=== PATIENT | male | born 1935 | race Caucasian/White ===

== ENCOUNTER 2016-11-14 09:08 | Outpatient (RCR) | payer MEDICARE, OTHER ==
[2016-10-10 10:58] LABS: BASOPHILS # (AUTO) 0.1 10^3/uL (0.0-0.1); BASOPHILS % (AUTO) 0 % (0-10); EOSINOPHILS % (AUTO) 0 % (0-10); LYMPHOCYTES % (AUTO) 94 % (12-44); MEAN CORPUSCULAR HEMOGLOBIN 35 PG (25-34); MEAN CORPUSCULAR HGB CONC 34 G/DL (32-36); MEAN CORPUSCULAR VOLUME 104 FL (80-99); MEAN PLATELET VOLUME 9.2 FL (7.4-10.4); MONOCYTES # (AUTO) 0.7 X 10^3 (0.0-1.0); MONOCYTES % (AUTO) 2 % (0-12); NEUTROPHILS # (AUTO) 1.4 X 10^3 (1.8-7.8); NEUTROPHILS % (AUTO) 4 % (42-75); PLATELET COUNT 114 10^3/uL (130-400); RED BLOOD COUNT 3.08 10^6/uL (4.35-5.85); RED CELL DISTRIBUTION WIDTH 16.9 % (10.0-14.5); WHITE BLOOD COUNT 38.2 10^3/uL (4.3-11.0)
[2016-10-10 11:59] LABS: ALANINE AMINOTRANSFERASE 15 U/L (0-55); ALBUMIN 4.3 G/DL (3.2-4.5); ANION GAP 7 MMOL/L (5-14); ASPARTATE AMINO TRANSFERASE 23 U/L (5-34); BILIRUBIN,TOTAL 0.5 MG/DL (0.1-1.0); BLOOD UREA NITROGEN 13 MG/DL (7-18); BUN/CREATININE RATIO 15; CALCIUM 9.2 MG/DL (8.5-10.1); CARBON DIOXIDE 24 MMOL/L (21-32); CHLORIDE 109 MMOL/L (98-107); CREATININE SERUM 0.84 MG/DL (0.60-1.30); GFR ESTIMATED > 60; GLUCOSE 123 MG/DL (70-105); LACTATE DEHYDROGENASE 252 U/L (125-220); POTASSIUM 4.8 MMOL/L (3.6-5.0); SODIUM 140 MMOL/L (135-145); TOTAL PROTEIN 7.1 G/DL (6.4-8.2)
[~2016-11-14 09:08] MED LIST: ASP81TEC PO; CARV25TA PO; E400C PO; ENAL10TA PO; FINA5TAB6 PO; GLYB2.5T4 PO; HYDR-3583 PO; OMEG-12 PO; SIMV80TA3 PO; SULF1TAB38 PO; [UNRECOGNIZED DRUG - CODE] PO
[2016-11-14 09:55] LABS: BASOPHILS # (AUTO) 0.1 10^3/uL (0.0-0.1); BASOPHILS % (AUTO) 0 % (0-10); EOSINOPHILS # (AUTO) 0.1 10^3/uL (0.0-0.3); EOSINOPHILS % (AUTO) 0 % (0-10); LYMPHOCYTES # (AUTO) 42.4 X 10^3 (1.0-4.0); LYMPHOCYTES % (AUTO) 92 % (12-44); MEAN CORPUSCULAR HEMOGLOBIN 35 PG (25-34); MEAN CORPUSCULAR HGB CONC 34 G/DL (32-36); MEAN CORPUSCULAR VOLUME 105 FL (80-99); MEAN PLATELET VOLUME 9.9 FL (7.4-10.4); MONOCYTES # (AUTO) 1.3 X 10^3 (0.0-1.0); MONOCYTES % (AUTO) 3 % (0-12); NEUTROPHILS # (AUTO) 2.3 X 10^3 (1.8-7.8); NEUTROPHILS % (AUTO) 5 % (42-75); PLATELET COUNT 199 10^3/uL (130-400); RED BLOOD COUNT 3.22 10^6/uL (4.35-5.85)
[2016-11-14 10:18] LABS: ALANINE AMINOTRANSFERASE 42 U/L (0-55); ALBUMIN 4.2 G/DL (3.2-4.5); ANION GAP 10 MMOL/L (5-14); ASPARTATE AMINO TRANSFERASE 34 U/L (5-34); BILIRUBIN,TOTAL 0.5 MG/DL (0.1-1.0); BLOOD UREA NITROGEN 17 MG/DL (7-18); BUN/CREATININE RATIO 16; CALCIUM 9.4 MG/DL (8.5-10.1); CARBON DIOXIDE 25 MMOL/L (21-32); CHLORIDE 106 MMOL/L (98-107); CREATININE SERUM 1.06 MG/DL (0.60-1.30); GFR ESTIMATED > 60; GLUCOSE 235 MG/DL (70-105); LACTATE DEHYDROGENASE 290 U/L (125-220); POTASSIUM 4.7 MMOL/L (3.6-5.0); SODIUM 141 MMOL/L (135-145); TOTAL PROTEIN 7.3 G/DL (6.4-8.2)
== END 2017-01-08 | disposition home or self-care (01) ==
LOC: ONC 09:08
PROVIDERS: ATTEND Internal Medicine Hematology & Oncology
DX: C91.10 Chronic lymphocytic leukemia of B-cell type not having achieved remission (principal); C32.1 Malignant neoplasm of supraglottis; N18.3 Chronic kidney disease, stage 3 (moderate); Z92.3 Personal history of irradiation; Z79.82 Long term (current) use of aspirin
CPT/HCPCS: 36415; 80053; 83615; 85025; 99213

== ENCOUNTER 2017-03-18 14:38 | Outpatient (RCR) | payer MEDICARE, OTHER ==
--- OUTSIDE RECORDS SUMMARY | 2017-01-16 10:45 | XMS REPORT | Continuity of Care Document ---
Author Author [facility] Organization [facility] Address Unknown Phone Unavailable Allergies Active Description Code Type Severity Reaction Onset Reported/Identified Relationship to Patient Clinical Status Yes No Known Drug Allergies [id number] Drug Allergy Unknown N/ A 03/28/2011 Medications Problems Date Dx Coded Attending Type Code Diagnosis Diagnosed By 10/23/1452 LIZ LAVES Ot C32.1 MALIGNANT NEOPLASM OF SUPRAGLOTTIS 10/23/1452 LIZ ALVES Ot C91.10 CHRONIC LYMPHOCYTIC LEUK OF B-CELL TYPE 10/23/1452 LIZ ALVES Ot N18.3 CHRONIC KIDNEY DISEASE, STAGE 3 (MODERAT 10/23/1452 LIZ ALVES Ot Z79.82 PETAL SHAPER HAND (CURRENT) USE OF ASPIRIN 10/23/1452 LIZ ALVES Ot Z92.3 PERSONAL HISTORY OF IRRADIATION 10/06/2014 CARL MALHOTRA DRESSED POULTRY GRADER Ot 161.1 10/06/2014 CARL MALHOTRA DRESSED POULTRY GRADER Ot 204.10 10/06/2014 CARL MALHOTRA DRESSED POULTRY GRADER Ot 585.3 10/06/2014 CARL MALHOTRA DRESSED POULTRY GRADER Ot V15.3 10/06/2014 CARL MALHOTRA DRESSED POULTRY GRADER Ot V58.66 10/06/2014 CARL MALHOTRA DRESSED POULTRY GRADER Ot V58.69 10/18/2014 CARL MALHOTRA DRESSED POULTRY GRADER Ot 161.1 10/18/2014 CARL MALHOTRA DRESSED POULTRY GRADER Ot 204.10 10/18/2014 CARL MALHOTRA DRESSED POULTRY GRADER Ot 585.3 10/18/2014 CARL MALHOTRA DRESSED POULTRY GRADER Ot V15.3 10/18/2014 CARL MALHOTRA DRESSED POULTRY GRADER Ot V58.66 10/18/2014 CARL MALHOTRA DRESSED POULTRY GRADER Ot V58.69 12/06/2014 LIZ ALVES Ot 161.1 12/06/2014 LONG, BOBAN N Ot 204.10 12/06/2014 LONG, BOBAN N Ot 585.3 12/06/2014 LONG, BOBAN N Ot V15.3 12/06/2014 LONG, BOBAN N Ot V58.66 12/06/2014 LONG, BOBAN N Ot V58.69 01/09/2015 LONG, BOBAN N Ot 161.1 01/09/2015 LONG, BOBAN N Ot 204.10 01/09/2015 LONG, BOBAN N Ot 585.3 01/09/2015 LONG, BOBAN N Ot V15.3 01/09/2015 LONG, BOBAN N Ot V58.66 01/09/2015 LONG, BOBAN N Ot V58.69 01/16/2015 LONG, BOBAN N Ot 161.1 01/16/2015 LONG, BOBAN N Ot 204.10 01/16/2015 LONG, BOBAN N Ot 585.3 01/16/2015 LONG, BOBAN N Ot V15.3 01/16/2015 LONG, BOBAN N Ot V58.66 01/16/2015 LONG, BOBAN N Ot V58.69 01/17/2015 LONG, BOBAN N Ot 161.1 01/17/2015 LONG, BOBAN N Ot 204.10 01/17/2015 LONG, BOBAN N Ot 585.3 01/17/2015 LONG, BOBAN N Ot V15.3 01/17/2015 LONG, BOBAN N Ot V58.66 01/17/2015 LONG, BOBAN N Ot V58.69 02/16/2015 LONG, BOBAN N Ot 161.1 02/16/2015 LONG, BOBAN N Ot 204.10 02/16/2015 LONG, BOBAN N Ot 585.3 02/16/2015 LONG, BOBAN N Ot V15.3 02/16/2015 LONG, BOBAN N Ot V58.66 02/16/2015 LONG, BOBAN N Ot V58.69 04/16/2015 LONG, BOBAN N Ot 161.1 04/16/2015 LONG, BOBAN N Ot 204.10 04/16/2015 LONG, BOBAN N Ot 585.3 04/16/2015 LONG, BOBAN N Ot V15.3 04/16/2015 LONG, BOBAN N Ot V58.66 04/16/2015 LONG, BOBAN N Ot V58.69 04/28/2015 LONG, BOBAN N Ot 161.1 04/28/2015 LONG, BOBAN N Ot 204.10 04/28/2015 LONG, BOBAN N Ot 585.3 04/28/2015 LONG, BOBAN N Ot V15.3 04/28/2015 LONG, BOBAN N Ot V58.66 04/28/2015 LONG, BOBAN N Ot V58.69 05/08/2015 LONG, BOBAN N Ot 161.1 05/08/2015 LONG, BOBAN N Ot 204.10 05/08/2015 LONG, BOBAN N Ot 585.3 05/08/2015 LONG, BOBAN N Ot V15.3 05/08/2015 LONG, BOBAN N Ot V58.66 05/08/2015 LONG, BOBAN N Ot V58.69 05/09/2015 LONG, BOBAN N Ot 161.1 05/09/2015 LONG, BOBAN N Ot 204.10 05/09/2015 LONG, BOBAN N Ot 585.3 05/09/2015 LONG, BOBAN N Ot V15.3 05/09/2015 LONG, BOBAN N Ot V58.66 05/09/2015 LONG, BOBAN N Ot V58.69 06/15/2015 LONG, BOBAN N Ot 161.1 06/15/2015 LONG, BOBAN N Ot 204.10 06/15/2015 LONG, BOBAN N Ot 585.3 06/15/2015 LONG, BOBAN N Ot V15.3 06/15/2015 LONG, BOBAN N Ot V58.66 06/15/2015 LONG, BOBAN N Ot V58.69 07/10/2015 LONG, BOBAN N Ot 161.1 07/10/2015 LONG, BOBAN N Ot 204.10 07/10/2015 LONG, BOBAN N Ot 585.3 07/10/2015 LONG, BOBAN N Ot V15.3 07/10/2015 LONG, BOBAN N Ot V58.66 07/10/2015 LONG, BOBAN N Ot V58.69 08/06/2015 LONGLIZ RODRÍGUEZ N Ot 161.1 08/06/2015 LONG, DAVONTEAN N Ot 204.10 08/06/2015 LONGLIZ RODRÍGUEZ N Ot 585.3 08/06/2015 LONGLIZ RODRÍGUEZ N Ot V15.3 08/06/2015 LONGLIZ RODRÍGUEZ N Ot V58.66 08/06/2015 LONGLIZ RODRÍGUEZ N Ot V58.69 09/18/2015 MALHOTRACARL Lofton S DRESSED POULTRY GRADER Ot 161.1 09/18/2015 MARYA CARL S DRESSED POULTRY GRADER Ot 204.10 09/18/2015 MARYA CARL S DRESSED POULTRY GRADER Ot 287.5 09/18/2015 MARYA CARL S DRESSED POULTRY GRADER Ot 585.3 09/18/2015 MARYA CARL S DRESSED POULTRY GRADER Ot V15.3 09/18/2015 MARYA CARL S DRESSED POULTRY GRADER Ot V58.66 09/18/2015 MARYA CARL S DRESSED POULTRY GRADER Ot V58.69 10/04/2015 MARYA CARL S DRESSED POULTRY GRADER Ot 161.1 10/04/2015 MARYA CALR S DRESSED POULTRY GRADER Ot 204.10 10/04/2015 MALHOTRA CARL S DRESSED POULTRY GRADER Ot 287.5 10/04/2015 MARYA CARL S DRESSED POULTRY GRADER Ot 585.3 10/04/2015 MARYA CARL S DRESSED POULTRY GRADER Ot V15.3 10/04/2015 MARYA CARL S DRESSED POULTRY GRADER Ot V58.66 10/04/2015 MARYA CARL S DRESSED POULTRY GRADER Ot V58.69 11/10/2015 LONGLIZ RODRÍGUEZ N Ot 161.1 11/10/2015 LONGLIZ RODRÍGUEZ N Ot 204.10 11/10/2015 LONGLIZ RODRÍGUEZ N Ot 585.3 11/10/2015 LONGDAVONTE RODRÍGUEZAN N Ot C32.1 11/10/2015 LONGLIZ RODRÍGUEZ N Ot C91.10 11/10/2015 LONGLIZ RODRÍGUEZ N Ot N18.3 11/10/2015 LONGLIZ RODRÍGUEZ N Ot V15.3 11/10/2015 LONGLIZ RODRÍGUEZ N Ot V58.66 11/10/2015 LONGLIZ RODRÍGUEZ N Ot V58.69 11/10/2015 LONG, BOBAN N Ot Z79.82 11/10/2015 LONG, BOBAN N Ot Z92.3 11/29/2015 LONG, BOBAN N Ot C32.1 11/29/2015 LONG, BOBAN N Ot C91.10 11/29/2015 LONG, BOBAN N Ot N18.3 11/29/2015 LONG, BOBAN N Ot Z79.82 11/29/2015 LONG, BOBAN N Ot Z92.3 12/05/2015 MALHOTRA, HILAH S DRESSED POULTRY GRADER Ot C32.1 12/05/2015 MALHOTRA, HILAH S DRESSED POULTRY GRADER Ot C91.10 12/05/2015 MALHOTRA, HILAH S DRESSED POULTRY GRADER Ot N18.3 12/05/2015 MALHOTRA, HILAH S DRESSED POULTRY GRADER Ot Z79.82 12/05/2015 MALHOTRA, HILAH S DRESSED POULTRY GRADER Ot Z92.3 12/27/2015 MALHOTRA, HILAH S DRESSED POULTRY GRADER Ot C32.1 12/27/2015 MALHOTRA, HILAH S DRESSED POULTRY GRADER Ot C91.10 12/27/2015 MALHOTRA, HILAH S DRESSED POULTRY GRADER Ot N18.3 12/27/2015 MALHOTRA, HILAH S DRESSED POULTRY GRADER Ot Z79.82 12/27/2015 MALHOTRA, HILAH S DRESSED POULTRY GRADER Ot Z92.3 01/01/2016 LONG, BOBAN N Ot C32.1 01/01/2016 LONG, BOBAN N Ot C91.10 01/01/2016 LONG, BOBAN N Ot N18.3 01/01/2016 LONG, BOBAN N Ot Z79.82 01/01/2016 LONG, BOBAN N Ot Z92.3 02/21/2016 LONG, BOBAN N Ot C32.1 02/21/2016 LONG, BOBAN N Ot C91.10 02/21/2016 LONG, BOBAN N Ot N18.3 02/21/2016 LONG, BOBAN N Ot Z79.82 02/21/2016 LONG, BOBAN N Ot Z92.3 02/29/2016 LONG, BOBAN N Ot C32.1 02/29/2016 LONG, BOBAN N Ot C91.10 02/29/2016 LONG, BOBAN N Ot N18.3 02/29/2016 LONG, BOBAN N Ot Z79.82 02/29/2016 LIZ ALVES N Ot Z92.3 04/15/2016 LIZ ALVES N Ot C32.1 MALIGNANT NEOPLASM OF SUPRAGLOTTIS 04/15/2016 LIZ ALVES N Ot C91.10 CHRONIC LYMPHOCYTIC LEUK OF B-CELL TYPE 04/15/2016 LIZ ALVES Ot N18.3 CHRONIC KIDNEY DISEASE, STAGE 3 (MODERAT 04/15/2016 LIZ ALVES N Ot Z79.82 PENITENTIARY (CURRENT) USE OF ASPIRIN 04/15/2016 LIZ ALVES N Ot Z92.3 PERSONAL HISTORY OF IRRADIATION 04/18/2016 LIZ ALVES N Ot C32.1 MALIGNANT NEOPLASM OF SUPRAGLOTTIS 04/18/2016 LIZ ALVES N Ot C91.10 CHRONIC LYMPHOCYTIC LEUK OF B-CELL TYPE 04/18/2016 LIZ ALVES N Ot N18.3 CHRONIC KIDNEY DISEASE, STAGE 3 (MODERAT 04/18/2016 LIZ ALVES N Ot Z79.82 PENITENTIARY (CURRENT) USE OF ASPIRIN 04/18/2016 LIZ ALVES N Ot Z92.3 PERSONAL HISTORY OF IRRADIATION 05/28/2016 LIZ ALVES N Ot C32.1 MALIGNANT NEOPLASM OF SUPRAGLOTTIS 05/28/2016 LIZ ALVES N Ot C91.10 CHRONIC LYMPHOCYTIC LEUK OF B-CELL TYPE 05/28/2016 LIZ ALVES N Ot N18.3 CHRONIC KIDNEY DISEASE, STAGE 3 (MODERAT 05/28/2016 LIZ ALVES N Ot Z79.82 PENITENTIARY (CURRENT) USE OF ASPIRIN 05/28/2016 LIZ ALVES N Ot Z92.3 PERSONAL HISTORY OF IRRADIATION 05/31/2016 CARL MALHOTRA DRESSED POULTRY GRADER Ot C32.1 MALIGNANT NEOPLASM OF SUPRAGLOTTIS 05/31/2016 CARL MALHOTRA DRESSED POULTRY GRADER Ot C91.10 CHRONIC LYMPHOCYTIC LEUK OF B-CELL TYPE 05/31/2016 CARL MALHOTRA DRESSED POULTRY GRADER Ot N18.3 CHRONIC KIDNEY DISEASE, STAGE 3 ( MODERAT 05/31/2016 CARL MALHOTRA DRESSED POULTRY GRADER Ot Z79.82 PENITENTIARY (CURRENT) USE OF ASPIRIN 05/31/2016 CARL MALHOTRA DRESSED POULTRY GRADER Ot Z92.3 PERSONAL HISTORY OF IRRADIATION 06/01/2016 CARL MALHOTRA S DRESSED POULTRY GRADER Ot C32.1 MALIGNANT NEOPLASM OF SUPRAGLOTTIS 06/01/2016 MALHOTRACARL Lofton DRESSED POULTRY GRADER Ot C91.10 CHRONIC LYMPHOCYTIC LEUK OF B-CELL TYPE 06/01/2016 CARL MALHOTRA DRESSED POULTRY GRADER Ot N18.3 CHRONIC KIDNEY DISEASE, STAGE 3 ( MODERAT 06/01/2016 MALHOTRACARL Lofton DRESSED POULTRY GRADER Ot Z79.82 PENITENTIARY (CURRENT) USE OF ASPIRIN 06/01/2016 MALHOTRACARL Lofton DRESSED POULTRY GRADER Ot Z92.3 PERSONAL HISTORY OF IRRADIATION 07/04/2016 MALHOTRACARL Lofton DRESSED POULTRY GRADER Ot C32.1 MALIGNANT NEOPLASM OF SUPRAGLOTTIS 07/04/2016 MALHOTRACARL Lofton DRESSED POULTRY GRADER Ot C91.10 CHRONIC LYMPHOCYTIC LEUK OF B-CELL TYPE 07/04/2016 CARL MALHOTRA DRESSED POULTRY GRADER Ot N18.3 CHRONIC KIDNEY DISEASE, STAGE 3 ( MODERAT 07/04/2016 MALHOTRACARL Lofton DRESSED POULTRY GRADER Ot Z79.82 PETAL SHAPER HAND (CURRENT) USE OF ASPIRIN 07/04/2016 MALHOTRACARL Lofton DRESSED POULTRY GRADER Ot Z92.3 PERSONAL HISTORY OF IRRADIATION 07/09/2016 CARL MALHOTRA DRESSED POULTRY GRADER Ot C32.1 MALIGNANT NEOPLASM OF SUPRAGLOTTIS 07/09/2016 MALHOTRACARL Lofton DRESSED POULTRY GRADER Ot C91.10 CHRONIC LYMPHOCYTIC LEUK OF B-CELL TYPE 07/09/2016 CARL MALHOTRA DRESSED POULTRY GRADER Ot N18.3 CHRONIC KIDNEY DISEASE, STAGE 3 ( MODERAT 07/09/2016 MALHOTRACARL Lofton DRESSED POULTRY GRADER Ot Z79.82 PENITENTIARY (CURRENT) USE OF ASPIRIN 07/09/2016 MALHOTRACARL Lofton DRESSED POULTRY GRADER Ot Z92.3 PERSONAL HISTORY OF IRRADIATION 07/11/2016 MALHOTRACARL Lofton DRESSED POULTRY GRADER Ot C91.10 CHRONIC LYMPHOCYTIC LEUK OF B-CELL TYPE 08/02/2016 MARYA CARL Lofton DRESSED POULTRY GRADER Ot C91.10 CHRONIC LYMPHOCYTIC LEUK OF B-CELL TYPE 08/05/2016 MARYA CARL Lofton DRESSED POULTRY GRADER Ot C91.10 CHRONIC LYMPHOCYTIC LEUK OF B-CELL TYPE 08/22/2016 LIZ ALVES Ot C32.1 MALIGNANT NEOPLASM OF SUPRAGLOTTIS 08/22/2016 LIZ ALVES Ot C91.10 CHRONIC LYMPHOCYTIC LEUK OF B-CELL TYPE 08/22/2016 LIZ ALVES N Ot N18.3 CHRONIC KIDNEY DISEASE, STAGE 3 (MODERAT 08/22/2016 LIZ ALVES N Ot Z79.82 PENITENTIARY (CURRENT) USE OF ASPIRIN 08/22/2016 LIZ ALVES N Ot Z92.3 PERSONAL HISTORY OF IRRADIATION 09/02/2016 LIZ ALVES N Ot C32.1 MALIGNANT NEOPLASM OF SUPRAGLOTTIS 09/02/2016 LZI ALVES N Ot C91.10 CHRONIC LYMPHOCYTIC LEUK OF B-CELL TYPE 09/02/2016 LIZ ALVES N Ot N18.3 CHRONIC KIDNEY DISEASE, STAGE 3 (MODERAT 09/02/2016 LIZ ALVES N Ot Z79.82 PENITENTIARY (CURRENT) USE OF ASPIRIN 09/02/2016 LIZ ALVES N Ot Z92.3 PERSONAL HISTORY OF IRRADIATION 10/08/2016 LIZ ALVES N Ot C32.1 MALIGNANT NEOPLASM OF SUPRAGLOTTIS 10/08/2016 LIZ ALVES N Ot C91.10 CHRONIC LYMPHOCYTIC LEUK OF B-CELL TYPE 10/08/2016 LIZ ALVES N Ot N18.3 CHRONIC KIDNEY DISEASE, STAGE 3 (MODERAT 10/08/2016 LIZ ALVES N Ot Z79.82 PENITENTIARY (CURRENT) USE OF ASPIRIN 10/08/2016 LIZ AVLES N Ot Z92.3 PERSONAL HISTORY OF IRRADIATION 10/11/2016 LIZ ALVES N Ot C32.1 MALIGNANT NEOPLASM OF SUPRAGLOTTIS 10/11/2016 LIZ ALVES N Ot C91.10 CHRONIC LYMPHOCYTIC LEUK OF B-CELL TYPE 10/11/2016 LIZ ALVES N Ot N18.3 CHRONIC KIDNEY DISEASE, STAGE 3 (MODERAT 10/11/2016 LIZ ALVES N Ot Z79.82 PENITENTIARY (CURRENT) USE OF ASPIRIN 10/11/2016 LIZ ALVES N Ot Z92.3 PERSONAL HISTORY OF IRRADIATION 11/21/2016 LIZ ALVES N Ot C32.1 MALIGNANT NEOPLASM OF SUPRAGLOTTIS 11/21/2016 LIZ ALVES N Ot C91.10 CHRONIC LYMPHOCYTIC LEUK OF B-CELL TYPE 11/21/2016 LIZ ALVES N Ot N18.3 CHRONIC KIDNEY DISEASE, STAGE 3 (MODERAT 11/21/2016 LIZ ALVES N Ot Z79.82 PENITENTIARY (CURRENT) USE OF ASPIRIN 11/21/2016 LIZ ALVES N Ot Z92.3 PERSONAL HISTORY OF IRRADIATION 11/21/2016 LIZ ALVES Ot C32.1 MALIGNANT NEOPLASM OF SUPRAGLOTTIS 11/21/2016 LIZ ALVES Ot C91.10 CHRONIC LYMPHOCYTIC LEUK OF B-CELL TYPE 11/21/2016 LIZ ALVES N Ot N18.3 CHRONIC KIDNEY DISEASE, STAGE 3 (MODERAT 11/21/2016 LIZ ALVES Ot Z79.82 PENITENTIARY (CURRENT) USE OF ASPIRIN 11/21/2016 LIZ ALVES N Ot Z92.3 PERSONAL HISTORY OF IRRADIATION 01/08/2017 LIZ ALVES Ot C32.1 MALIGNANT NEOPLASM OF SUPRAGLOTTIS 01/08/2017 LIZ ALVES Ot C91.10 CHRONIC LYMPHOCYTIC LEUK OF B-CELL TYPE 01/08/2017 LIZ ALVES Ot N18.3 CHRONIC KIDNEY DISEASE, STAGE 3 (MODERAT 01/08/2017 LIZ ALVES N Ot Z79.82 PETAL SHAPER HAND (CURRENT) USE OF ASPIRIN 01/08/2017 LIZ ALVES N Ot Z92.3 PERSONAL HISTORY OF IRRADIATION Procedures Results Encounters ACCT No. Visit Date/Time Discharge Status Pt. Type Provider Facility Loc./Unit Complaint [id number] 11/14/2016 09:08:00 2016 00:01:00 DIS Outpatient LIZ ALVES [facility] ONC BONE MARROW [id number] 08/21/2016 09:03:00 2015 14:53:00 DIS Outpatient LIZ ALVES N [facility] ONC BONE MARROW [id number] 02/28/2016 09:45:00 2015 00:01:00 DIS Outpatient LIZ ALVES N [facility] ONC [id number] 10/03/2015 09:56:00 2014 23:59:59 CLS Outpatient LIZ ALVES N [facility] ONC [id number] 08/22/2015 13:09:00 2014 23:59:59 CLS Outpatient CARL MALHOTRA [facility] ONC [id number] 05/08/2015 10:58:00 2014 00:01:00 DIS Outpatient LIZ ALVES [facility] ONC [id number] 01/16/2015 10:28:00 2014 00:01:00 DIS Preadmit LIZ ALVES [facility] ONC [id number] 09/14/2014 09:31:00 2013 23:59:59 CLS Outpatient CARL MALHOTRA [facility] ONC [id number] 06/16/2014 10:49:00 2013 00:01:00 DIS Outpatient [id number] 03/22/2014 07:17:00 2013 23:59:59 CLS Outpatient [id number] 03/10/2014 12:54:00 2013 23:59:59 CLS Outpatient [id number] 12/08/2013 10:00:00 2013 00:01:00 DIS Outpatient [id number] 09/14/2013 13:54:00 2012 23:59:59 CLS Outpatient [id number] 06/07/2013 12:54:00 2012 00:01:00 DIS Outpatient [id number] 06/01/2013 08:29:00 2012 23:59:59 CLS Outpatient [id number] 01/09/2017 00:09:00 PEN Preadmit LIZ ALVES [facility] ONC BONE MARROW [id number] 07/10/2016 14:19:00 ACT Outpatient CARL MALHOTRAP [facility] ONC [id number] 05/30/2016 10:08:00 ACT Outpatient CARL MALHOTRAP [facility] ONC [id number] 11/14/2015 12:23:00 ACT Outpatient CARL MALHOTRAP [facility] ONC
[2017-01-16 11:14] LABS: BASOPHILS % (AUTO) 0 % (0-10); EOSINOPHILS % (AUTO) 0 % (0-10); LYMPHOCYTES # (AUTO) 16.3 X 10^3 (1.0-4.0); LYMPHOCYTES % (AUTO) 87 % (12-44); MEAN CORPUSCULAR HEMOGLOBIN 34 PG (25-34); MEAN CORPUSCULAR HGB CONC 32 G/DL (32-36); MEAN CORPUSCULAR VOLUME 106 FL (80-99); MEAN PLATELET VOLUME 9.8 FL (7.4-10.4); MONOCYTES % (AUTO) 5 % (0-12); NEUTROPHILS # (AUTO) 1.3 X 10^3 (1.8-7.8); NEUTROPHILS % (AUTO) 7 % (42-75); PLATELET COUNT 77 10^3/uL (130-400); RED BLOOD COUNT 2.76 10^6/uL (4.35-5.85); RED CELL DISTRIBUTION WIDTH 16.5 % (10.0-14.5); WHITE BLOOD COUNT 18.7 10^3/uL (4.3-11.0)
[2017-01-16 11:37] LABS: ALANINE AMINOTRANSFERASE 31 U/L (0-55); ALBUMIN 3.9 G/DL (3.2-4.5); ANION GAP 9 MMOL/L (5-14); ASPARTATE AMINO TRANSFERASE 25 U/L (5-34); BILIRUBIN,TOTAL 0.6 MG/DL (0.1-1.0); BLOOD UREA NITROGEN 15 MG/DL (7-18); BUN/CREATININE RATIO 15; CARBON DIOXIDE 23 MMOL/L (21-32); CHLORIDE 108 MMOL/L (98-107); CREATININE SERUM 1.01 MG/DL (0.60-1.30); GFR ESTIMATED > 60; GLUCOSE 170 MG/DL (70-105); LACTATE DEHYDROGENASE 169 U/L (125-220); SODIUM 140 MMOL/L (135-145); TOTAL PROTEIN 6.7 G/DL (6.4-8.2)
[2017-03-18 14:52] LABS: BASOPHILS % (AUTO) 0 % (0-10); EOSINOPHILS # (AUTO) 0.1 10^3/uL (0.0-0.3); EOSINOPHILS % (AUTO) 0 % (0-10); LYMPHOCYTES # (AUTO) 18.9 X 10^3 (1.0-4.0); LYMPHOCYTES % (AUTO) 88 % (12-44); MEAN CORPUSCULAR HEMOGLOBIN 34 PG (25-34); MEAN CORPUSCULAR HGB CONC 31 G/DL (32-36); MEAN CORPUSCULAR VOLUME 109 FL (80-99); MEAN PLATELET VOLUME 9.6 FL (7.4-10.4); MONOCYTES # (AUTO) 1.4 X 10^3 (0.0-1.0); MONOCYTES % (AUTO) 7 % (0-12); NEUTROPHILS # (AUTO) 1.1 X 10^3 (1.8-7.8); NEUTROPHILS % (AUTO) 5 % (42-75); PLATELET COUNT 80 10^3/uL (130-400); RED BLOOD COUNT 3.04 10^6/uL (4.35-5.85); RED CELL DISTRIBUTION WIDTH 16.9 % (10.0-14.5); WHITE BLOOD COUNT 21.5 10^3/uL (4.3-11.0)
[2017-03-18 15:17] LABS: ALBUMIN 4.2 G/DL (3.2-4.5); BILIRUBIN,TOTAL 0.5 MG/DL (0.1-1.0); CALCIUM 9.2 MG/DL (8.5-10.1); CREATININE SERUM 1.16 MG/DL (0.60-1.30); TOTAL PROTEIN 7.1 G/DL (6.4-8.2)
== END 2017-04-16 | disposition home or self-care (01) ==
LOC: ONC 14:38
PROVIDERS: ATTEND Internal Medicine Hematology & Oncology
DX: C91.10 Chronic lymphocytic leukemia of B-cell type not having achieved remission (principal); C32.1 Malignant neoplasm of supraglottis; N18.3 Chronic kidney disease, stage 3 (moderate); Z92.3 Personal history of irradiation; Z79.82 Long term (current) use of aspirin
CPT/HCPCS: 36415; 80053; 83615; 85025; 99213

== ENCOUNTER → 2017-04-11 | Outpatient (CLI) | payer MEDICARE, OTHER ==
[~2017-04-11] MED LIST changes: +BARIUM SUSPENSION 2.1% (VANILLA SILQ) 450 ML PO ONE; +CATHETER FLUSH 10 ML SYR IV PRN; +IOHEXOL 350 MG/ML 100 ML (OMNIPAQUE 350) VIAL IV ONE; +NS 100 ML (IVPB) BAG IV ONE
--- NOTE | 2017-04-11 13:17 | Diagnostic Imaging Report ---
PROCEDURE: CT abdomen and pelvis with contrast. TECHNIQUE: Multiple contiguous axial images were obtained through the abdomen and pelvis after administration of intravenous contrast. INDICATION: Prostate cancer. Head and neck cancer. Leukemia. 100 mL of Omnipaque-350 is administered intravenously. FINDINGS: Sections in the lower chest demonstrate a partially visualized 3.5 x 3.2 cm mediastinal mass perhaps an extension of an infracarinal enlarged lymph node. The lung bases demonstrate mild scarring. In the upper abdomen, enlarged lymph node mass measuring 5.5 x 3.4 cm is seen in the portacaval lymph node station and measuring up to 7.5 cm craniocaudally. A common hepatic artery station lymph node mass measuring 4.7 x 3.3 cm is also seen. Other mildly enlarged retroperitoneal lymph nodes are seen in the para-aortic and aortocaval stations measuring 1-2 cm in short axis. There are also iliac lymph nodes up to 2.1 cm in the right common iliac, 1.8 cm internal iliac, and 2 cm external iliac lymph nodes all measured in short axis. Small left common iliac lymph nodes are seen. An elongated 2 cm right external iliac lymph node measured in short axis extends over 5.7 cm anteroposteriorly. There are nonspecific minimally prominent inguinal lymph nodes bilaterally. The liver and spleen demonstrate punctate calcifications compatible with old granulomatous process. The spleen is slightly enlarged measuring 13 x 5.8 x 12.7 cm in size. It is slightly larger compared to 2011 exam. The pancreas, the adrenals, and the gallbladder appear grossly unremarkable. The kidneys have symmetric enhancement and excretion. No hydronephrosis. The abdominal aorta is normal in size. The prostate has fiducial markers suggestive of prior radiation. Mild nonspecific diffuse urinary bladder wall thickening is seen. There is diverticulosis in the sigmoid colon with no diverticulitis. The osseous structures demonstrate advanced degenerative changes in the lumbar spine and lower thoracic spine with fusion of the SI joints. IMPRESSION: 1. Large lymph node masses in the upper abdomen, and other enlarged lymph nodes in the retroperitoneum and pelvis compatible with neoplastic etiology. There is a partially visualized lymph node mass in the mediastinum seen in the lower chest. Consider evaluation with CT scan of the neck and chest, or PET/CT for complete evaluation. 2. Mild splenomegaly. The findings were called and discussed with Dr. Zee at the time of the dictation. Dictated by: Dictated on workstation # [id number]
== END ==
LOC: RAD 11:23
PROVIDERS: ATTEND Urology
DX: C61 Malignant neoplasm of prostate (principal); R59.1 Generalized enlarged lymph nodes; R16.1 Splenomegaly, not elsewhere classified
CPT/HCPCS: 74177

== ENCOUNTER → 2017-04-29 | Outpatient (CLI) | payer MEDICARE, OTHER ==
[~2017-04-29] MED LIST changes: -BARIUM SUSPENSION 2.1% (VANILLA SILQ) 450 ML PO ONE; -CATHETER FLUSH 10 ML SYR IV PRN; -IOHEXOL 350 MG/ML 100 ML (OMNIPAQUE 350) VIAL IV ONE; -NS 100 ML (IVPB) BAG IV ONE
--- NOTE | 2017-04-29 13:55 | Diagnostic Imaging Report ---
EXAMINATION: PET-CT TECHNIQUE: Serum glucose level at the time of the study is: 139 mg/dL. 13.3 mCi of FDG was administered intravenously followed by obtaining PET images with corresponding noncontrast CT scan images. The CT scan was performed for anatomic correlation and attenuation correction and was not performed according to the diagnostic protocol of the areas covered. The scan was performed from the head to mid thighs. INDICATION: Chronic lymphocytic leukemia. COMPARISON: 04/11/[address] abdomen and pelvis from 04/11/2017 is reviewed. FINDINGS: There is symmetric FDG uptake in the brain. There is no suspicious hypermetabolic mass seen in the neck. There is bilateral lymphadenopathy in the axilla, the largest lesion on the left side is a 4.8 x 3 cm lymph node mass with minimal increased FDG uptake with associated SUV of 2.5. There are numerous small nodes in addition to mildly and moderately enlarged lymph nodes seen in both axilla. The degree of hypermetabolism is slightly higher in an inferior right axillary lymph node mass. SUV is 3.5. There is an infracarinal enlarged lymph node mass with minimal hypermetabolism and a maximum SUV of 3.1. The mediastinum demonstrates other enlarged lymph nodes in the subaortic precarinal and right paratracheal stations and in the aortopulmonary window with no significant FDG uptake. IN THE ABDOMEN AND THE PELVIS: There is urinary tract excretion of the tracer seen. There are enlarged lymph nodes noted more prominent in the pelvis and left paratracheal station with generally no significant FDG uptake with SUV values around 1.5-2.5. As a reference, the average SUV values in the liver is about 2.5. No hypermetabolic lesion is seen in the osseous structures. IMPRESSION: There is lymphadenopathy in the axilla, the mediastinum, the upper abdomen and in the pelvis with generally minimal increased FDG uptake. These enlarged lymph nodes are generally new when compared to 03/22/2014. The low FDG uptake may relate to indolent type lymphoma or other lymphoproliferative disorders. Correlate with tissue diagnosis and CT scan followup exams. Dictated by: Dictated on workstation # [id number]
== END ==
LOC: RAD 09:24
PROVIDERS: ATTEND Nurse Practitioner Adult Health
DX: C91.10 Chronic lymphocytic leukemia of B-cell type not having achieved remission (principal)

== ENCOUNTER 2017-07-21 10:16 | Outpatient (RCR) | payer MEDICARE, OTHER ==
[2017-04-23 10:42] LABS: BASOPHILS % (AUTO) 0 % (0-10); EOSINOPHILS % (AUTO) 0 % (0-10); LYMPHOCYTES # (AUTO) 23.5 X 10^3 (1.0-4.0); LYMPHOCYTES % (AUTO) 93 % (12-44); MEAN CORPUSCULAR HEMOGLOBIN 35 PG (25-34); MEAN CORPUSCULAR HGB CONC 33 G/DL (32-36); MEAN CORPUSCULAR VOLUME 106 FL (80-99); MEAN PLATELET VOLUME 10.1 FL (7.4-10.4); MONOCYTES # (AUTO) 0.6 X 10^3 (0.0-1.0); MONOCYTES % (AUTO) 2 % (0-12); NEUTROPHILS # (AUTO) 1.2 X 10^3 (1.8-7.8); NEUTROPHILS % (AUTO) 5 % (42-75); PLATELET COUNT 76 10^3/uL (130-400); RED BLOOD COUNT 3.11 10^6/uL (4.35-5.85); RED CELL DISTRIBUTION WIDTH 16.2 % (10.0-14.5); WHITE BLOOD COUNT 25.3 10^3/uL (4.3-11.0)
[2017-04-23 11:18] LABS: ALANINE AMINOTRANSFERASE 17 U/L (0-55); ALBUMIN 4.2 G/DL (3.2-4.5); ANION GAP 9 MMOL/L (5-14); ASPARTATE AMINO TRANSFERASE 17 U/L (5-34); BILIRUBIN,TOTAL 0.4 MG/DL (0.1-1.0); BLOOD UREA NITROGEN 18 MG/DL (7-18); BUN/CREATININE RATIO 17; CALCIUM 9.5 MG/DL (8.5-10.1); CARBON DIOXIDE 25 MMOL/L (21-32); CHLORIDE 106 MMOL/L (98-107); CREATININE SERUM 1.04 MG/DL (0.60-1.30); GFR ESTIMATED > 60; GLUCOSE 125 MG/DL (70-105); LACTATE DEHYDROGENASE 189 U/L (125-220); POTASSIUM 4.5 MMOL/L (3.6-5.0); SODIUM 140 MMOL/L (135-145); TOTAL PROTEIN 7.2 G/DL (6.4-8.2)
[2017-05-06 11:07] LABS: BASOPHILS % (AUTO) 0 % (0-10); EOSINOPHILS % (AUTO) 0 % (0-10); LYMPHOCYTES # (AUTO) 22.6 X 10^3 (1.0-4.0); LYMPHOCYTES % (AUTO) 94 % (12-44); MEAN CORPUSCULAR HEMOGLOBIN 34 PG (25-34); MEAN CORPUSCULAR HGB CONC 32 G/DL (32-36); MEAN CORPUSCULAR VOLUME 107 FL (80-99); MEAN PLATELET VOLUME 9.5 FL (7.4-10.4); MONOCYTES # (AUTO) 0.4 X 10^3 (0.0-1.0); MONOCYTES % (AUTO) 2 % (0-12); NEUTROPHILS # (AUTO) 1.1 X 10^3 (1.8-7.8); NEUTROPHILS % (AUTO) 4 % (42-75); PLATELET COUNT 59 10^3/uL (130-400); RED BLOOD COUNT 2.98 10^6/uL (4.35-5.85); RED CELL DISTRIBUTION WIDTH 16.1 % (10.0-14.5); WHITE BLOOD COUNT 24.2 10^3/uL (4.3-11.0)
[2017-05-06 11:27] LABS: ALANINE AMINOTRANSFERASE 17 U/L (0-55); ALBUMIN 4.1 GM/DL (3.2-4.5); ANION GAP 10 MMOL/L (5-14); ASPARTATE AMINO TRANSFERASE 17 U/L (5-34); BILIRUBIN,TOTAL 0.6 MG/DL (0.1-1.0); BLOOD UREA NITROGEN 20 MG/DL (7-18); BUN/CREATININE RATIO 18 (0-20); CALCIUM 9.3 MG/DL (8.5-10.1); CARBON DIOXIDE 25 MMOL/L (21-32); CHLORIDE 107 MMOL/L (98-107); CREATININE SERUM 1.14 MG/DL (0.60-1.30); GFR ESTIMATED > 60; GLUCOSE 186 MG/DL (70-105); LACTATE DEHYDROGENASE 201 U/L (125-220); SODIUM 142 MMOL/L (135-145)
[2017-05-28 08:57] LABS: BASOPHILS % (AUTO) 0 % (0-10); EOSINOPHILS % (AUTO) 0 % (0-10); LYMPHOCYTES # (AUTO) 28.4 X 10^3 (1.0-4.0); LYMPHOCYTES % (AUTO) 92 % (12-44); MEAN CORPUSCULAR HEMOGLOBIN 35 PG (25-34); MEAN CORPUSCULAR HGB CONC 33 G/DL (32-36); MEAN CORPUSCULAR VOLUME 105 FL (80-99); MEAN PLATELET VOLUME 9.7 FL (7.4-10.4); MONOCYTES # (AUTO) 0.6 X 10^3 (0.0-1.0); MONOCYTES % (AUTO) 2 % (0-12); NEUTROPHILS # (AUTO) 1.7 X 10^3 (1.8-7.8); NEUTROPHILS % (AUTO) 6 % (42-75); PLATELET COUNT 100 10^3/uL (130-400); RED BLOOD COUNT 2.78 10^6/uL (4.35-5.85)
[2017-05-28 08:58] LABS: WHITE BLOOD COUNT 30.7 10^3/uL (4.3-11.0)
[2017-05-28 09:31] LABS: ALANINE AMINOTRANSFERASE 21 U/L (0-55); ALBUMIN 3.8 GM/DL (3.2-4.5); ANION GAP 11 MMOL/L (5-14); ASPARTATE AMINO TRANSFERASE 17 U/L (5-34); BILIRUBIN,TOTAL 0.9 MG/DL (0.1-1.0); BLOOD UREA NITROGEN 19 MG/DL (7-18); BUN/CREATININE RATIO 18; CARBON DIOXIDE 26 MMOL/L (21-32); CHLORIDE 101 MMOL/L (98-107); CREATININE SERUM 1.07 MG/DL (0.60-1.30); GFR ESTIMATED > 60; GLUCOSE 311 MG/DL (70-105); LACTATE DEHYDROGENASE 167 U/L (125-220); POTASSIUM 3.9 MMOL/L (3.6-5.0); SODIUM 138 MMOL/L (135-145); TOTAL PROTEIN 7.2 GM/DL (6.4-8.2)
[2017-05-28 09:52] LABS: URIC ACID 7.8 MG/DL (2.6-7.2)
[2017-06-12 10:00] LABS: BASOPHILS # (AUTO) 0.2 10^3/uL (0.0-0.1); BASOPHILS % (AUTO) 0 % (0-10); EOSINOPHILS % (AUTO) 0 % (0-10); LYMPHOCYTES # (AUTO) 77.9 X 10^3 (1.0-4.0); LYMPHOCYTES % (AUTO) 95 % (12-44); MEAN CORPUSCULAR HEMOGLOBIN 34 PG (25-34); MEAN CORPUSCULAR HGB CONC 31 G/DL (32-36); MEAN CORPUSCULAR VOLUME 109 FL (80-99); MEAN PLATELET VOLUME 9.1 FL (7.4-10.4); MONOCYTES # (AUTO) 1.5 X 10^3 (0.0-1.0); MONOCYTES % (AUTO) 2 % (0-12); NEUTROPHILS # (AUTO) 2.8 X 10^3 (1.8-7.8); NEUTROPHILS % (AUTO) 3 % (42-75); PLATELET COUNT 164 10^3/uL (130-400); RED BLOOD COUNT 2.55 10^6/uL (4.35-5.85); RED CELL DISTRIBUTION WIDTH 16.9 % (10.0-14.5)
[2017-06-12 10:01] LABS: WHITE BLOOD COUNT 82.4 10^3/uL (4.3-11.0)
[2017-06-24 09:15] LABS: MEAN CORPUSCULAR HEMOGLOBIN 35 PG (25-34); MEAN CORPUSCULAR HGB CONC 31 G/DL (32-36); MEAN CORPUSCULAR VOLUME 110 FL (80-99); MEAN PLATELET VOLUME 8.9 FL (7.4-10.4); PLATELET COUNT 131 10^3/uL (130-400); RED BLOOD COUNT 2.55 10^6/uL (4.35-5.85); RED CELL DISTRIBUTION WIDTH 18.1 % (10.0-14.5)
[2017-06-24 09:58] LABS: ALANINE AMINOTRANSFERASE 16 U/L (0-55); ALBUMIN 3.7 GM/DL (3.2-4.5); ANION GAP 7 MMOL/L (5-14); ASPARTATE AMINO TRANSFERASE 15 U/L (5-34); BILIRUBIN,TOTAL 0.4 MG/DL (0.1-1.0); BLOOD UREA NITROGEN 17 MG/DL (7-18); BUN/CREATININE RATIO 16; CALCIUM 8.9 MG/DL (8.5-10.1); CARBON DIOXIDE 28 MMOL/L (21-32); CHLORIDE 105 MMOL/L (98-107); CREATININE SERUM 1.07 MG/DL (0.60-1.30); GFR ESTIMATED > 60; GLUCOSE 180 MG/DL (70-105); LACTATE DEHYDROGENASE 181 U/L (125-220); POTASSIUM 3.8 MMOL/L (3.6-5.0); SODIUM 140 MMOL/L (135-145); URIC ACID 7.4 MG/DL (2.6-7.2)
[2017-06-24 10:29] LABS: WHITE BLOOD COUNT 50.2 10^3/uL (4.3-11.0)
[2017-07-21 10:45] LABS: BASOPHILS % (AUTO) 0 % (0-10); EOSINOPHILS % (AUTO) 0 % (0-10); LYMPHOCYTES # (AUTO) 22.9 X 10^3 (1.0-4.0); LYMPHOCYTES % (AUTO) 90 % (12-44); MEAN CORPUSCULAR HEMOGLOBIN 35 PG (25-34); MEAN CORPUSCULAR HGB CONC 31 G/DL (32-36); MEAN CORPUSCULAR VOLUME 112 FL (80-99); MEAN PLATELET VOLUME 10.2 FL (7.4-10.4); MONOCYTES # (AUTO) 1.5 X 10^3 (0.0-1.0); MONOCYTES % (AUTO) 6 % (0-12); NEUTROPHILS % (AUTO) 4 % (42-75); PLATELET COUNT 86 10^3/uL (130-400); RED BLOOD COUNT 2.85 10^6/uL (4.35-5.85); RED CELL DISTRIBUTION WIDTH 18.1 % (10.0-14.5); WHITE BLOOD COUNT 25.6 10^3/uL (4.3-11.0)
[2017-07-21 11:11] LABS: ALANINE AMINOTRANSFERASE 27 U/L (0-55); ALBUMIN 4.2 GM/DL (3.2-4.5); ANION GAP 9 MMOL/L (5-14); ASPARTATE AMINO TRANSFERASE 25 U/L (5-34); BILIRUBIN,TOTAL 0.8 MG/DL (0.1-1.0); BLOOD UREA NITROGEN 17 MG/DL (7-18); BUN/CREATININE RATIO 15; CALCIUM 9.4 MG/DL (8.5-10.1); CARBON DIOXIDE 27 MMOL/L (21-32); CHLORIDE 105 MMOL/L (98-107); CREATININE SERUM 1.13 MG/DL (0.60-1.30); GFR ESTIMATED > 60; GLUCOSE 232 MG/DL (70-105); LACTATE DEHYDROGENASE 229 U/L (125-220); POTASSIUM 4.5 MMOL/L (3.6-5.0); SODIUM 141 MMOL/L (135-145); TOTAL PROTEIN 7.3 GM/DL (6.4-8.2); URIC ACID 10.3 MG/DL (2.6-7.2)
== END 2017-07-22 | disposition home or self-care (01) ==
LOC: ONC 10:16
PROVIDERS: ATTEND Internal Medicine Hematology & Oncology
DX: C91.10 Chronic lymphocytic leukemia of B-cell type not having achieved remission (principal); Z85.21 Personal history of malignant neoplasm of larynx; N18.3 Chronic kidney disease, stage 3 (moderate); I12.9 Hypertensive chronic kidney disease with stage 1 through stage 4 chronic kidney disease, or unspecified chronic kidney disease; E11.22 Type 2 diabetes mellitus with diabetic chronic kidney disease; I25.10 Atherosclerotic heart disease of native coronary artery without angina pectoris; E78.00 Pure hypercholesterolemia, unspecified; Z92.3 Personal history of irradiation; Z79.82 Long term (current) use of aspirin; Z79.899 Other long term (current) drug therapy
CPT/HCPCS: 36415; 80053; 83615; 84550; 85025; 93005; 99213

== ENCOUNTER 2017-08-20 13:12 | Outpatient (RCR) | payer MEDICARE, OTHER ==
[2017-08-20 13:31] LABS: BASOPHILS % (AUTO) 0 % (0-10); EOSINOPHILS % (AUTO) 0 % (0-10); LYMPHOCYTES # (AUTO) 22.1 X 10^3 (1.0-4.0); LYMPHOCYTES % (AUTO) 91 % (12-44); MEAN CORPUSCULAR HEMOGLOBIN 37 PG (25-34); MEAN CORPUSCULAR HGB CONC 33 G/DL (32-36); MEAN CORPUSCULAR VOLUME 111 FL (80-99); MEAN PLATELET VOLUME 10.3 FL (7.4-10.4); MONOCYTES # (AUTO) 1.2 X 10^3 (0.0-1.0); MONOCYTES % (AUTO) 5 % (0-12); NEUTROPHILS % (AUTO) 4 % (42-75); PLATELET COUNT 61 10^3/uL (130-400); RED BLOOD COUNT 2.82 10^6/uL (4.35-5.85); RED CELL DISTRIBUTION WIDTH 17.2 % (10.0-14.5); WHITE BLOOD COUNT 24.3 10^3/uL (4.3-11.0)
[2017-08-20 13:49] LABS: ALANINE AMINOTRANSFERASE 16 U/L (0-55); ALBUMIN 4.2 GM/DL (3.2-4.5); ANION GAP 10 MMOL/L (5-14); ASPARTATE AMINO TRANSFERASE 19 U/L (5-34); BILIRUBIN,TOTAL 0.6 MG/DL (0.1-1.0); BLOOD UREA NITROGEN 20 MG/DL (7-18); BUN/CREATININE RATIO 19; CALCIUM 9.5 MG/DL (8.5-10.1); CARBON DIOXIDE 27 MMOL/L (21-32); CHLORIDE 103 MMOL/L (98-107); CREATININE SERUM 1.07 MG/DL (0.60-1.30); GFR ESTIMATED > 60; GLUCOSE 224 MG/DL (70-105); LACTATE DEHYDROGENASE 211 U/L (125-220); POTASSIUM 4.2 MMOL/L (3.6-5.0); SODIUM 140 MMOL/L (135-145); TOTAL PROTEIN 7.5 GM/DL (6.4-8.2); URIC ACID 6.1 MG/DL (2.6-7.2)
== END 2017-08-23 | disposition home or self-care (01) ==
LOC: ONC 13:12
PROVIDERS: ATTEND Internal Medicine Hematology & Oncology
DX: C91.10 Chronic lymphocytic leukemia of B-cell type not having achieved remission (principal); Z85.21 Personal history of malignant neoplasm of larynx; N18.3 Chronic kidney disease, stage 3 (moderate); I12.9 Hypertensive chronic kidney disease with stage 1 through stage 4 chronic kidney disease, or unspecified chronic kidney disease; E11.22 Type 2 diabetes mellitus with diabetic chronic kidney disease; I25.10 Atherosclerotic heart disease of native coronary artery without angina pectoris; E78.00 Pure hypercholesterolemia, unspecified; Z92.3 Personal history of irradiation; Z79.82 Long term (current) use of aspirin; Z79.899 Other long term (current) drug therapy
CPT/HCPCS: 36415; 80053; 83615; 84550; 85025; 99213

== ENCOUNTER 2017-10-10 05:35 | Outpatient (CLI) | payer MEDICARE, OTHER ==
[~2017-10-10] VITALS: Ht 175.3 cm; Wt 83.5 kg
[2017-10-10] MEDS ORDERED: IBRU140C PO (11:59)
[2017-10-10] MEDS ORDERED: FURO40TA4 PO (11:59)
[2017-10-10] MEDS ORDERED: OMEG-160 PO (11:59)
[2017-10-10] MEDS ORDERED: CHOL10007 PO (11:59)
[2017-10-10] MEDS ORDERED: CARV6.252 PO (11:59)
[2017-10-10] MEDS ORDERED: POTA20TA15 PO (11:59)
[2017-10-10] MEDS ORDERED: GLIM2TAB PO (11:59)
[2017-10-10] MEDS ORDERED: ALLO300T2 PO (11:59)
[2017-10-10] MEDS ORDERED: CALC600T12 PO (11:59)
== END 2017-10-10 12:00 ==
LOC: PREOP 05:35
PROVIDERS: ATTEND Surgery
DX: Z01.818 Encounter for other preprocedural examination (principal); L98.9 Disorder of the skin and subcutaneous tissue, unspecified

== ENCOUNTER 2017-10-15 07:50 | Day surgery (SDC) | payer MEDICARE, OTHER ==
[~2017-10-15] VITALS: Ht 175.3 cm; Wt 83.5 kg
[~2017-10-15 07:50] MED LIST changes: +ALLO300T2 PO; +CALC600T12 PO; +CARV6.252 PO; +CHOL10007 PO; +FURO40TA4 PO; +GLIM2TAB PO; +IBRU140C PO; +OMEG-160 PO; +POTA20TA15 PO
--- OUTSIDE RECORDS SUMMARY | 2017-10-15 07:56 | XMS REPORT | Continuity of Care Document ---
Author Author [facility] Organization [facility] Address Unknown Phone Unavailable Allergies Active Description Code Type Severity Reaction Onset Reported/Identified Relationship to Patient Clinical Status Yes No Known Drug Allergies [id number] Drug Allergy Unknown N/ A 03/28/2011 Yes Sulfa (Sulfonamide Antibiotics) [id number] Drug Allergy Unknown N/A 10/10/2017 Medications Problems Date Dx Coded Attending Type Code Diagnosis Diagnosed By 10/23/1452 LIZ ALVES Ot C32.1 MALIGNANT NEOPLASM OF SUPRAGLOTTIS 10/23/1452 LIZ ALVES Ot C91.10 CHRONIC LYMPHOCYTIC LEUK OF B-CELL TYPE 10/23/1452 LIZ ALVES Ot N18.3 CHRONIC KIDNEY DISEASE, STAGE 3 (MODERAT 10/23/1452 LIZ ALVES Ot Z79.82 [facility] (CURRENT) USE OF ASPIRIN 10/23/1452 LIZ ALVES Ot Z92.3 PERSONAL HISTORY OF IRRADIATION 10/06/2014 CARL MALHOTRA PROFESSOR OF COMMUNICATION Ot 161.1 10/06/2014 CARL MALHOTRA PROFESSOR OF COMMUNICATION Ot 204.10 10/06/2014 CARL MALHOTRA PROFESSOR OF COMMUNICATION Ot 585.3 10/06/2014 CARL MALHOTRA PROFESSOR OF COMMUNICATION Ot V15.3 10/06/2014 CARL MALHOTRA PROFESSOR OF COMMUNICATION Ot V58.66 10/06/2014 CARL MALHOTRA PROFESSOR OF COMMUNICATION Ot V58.69 10/18/2014 CARL MALHOTRA PROFESSOR OF COMMUNICATION Ot 161.1 10/18/2014 CARL MALHOTRA PROFESSOR OF COMMUNICATION Ot 204.10 10/18/2014 CARL MALHOTRA PROFESSOR OF COMMUNICATION Ot 585.3 10/18/2014 CARL MALHOTRA PROFESSOR OF COMMUNICATION Ot V15.3 10/18/2014 CARL MALHOTRA PROFESSOR OF COMMUNICATION Ot V58.66 10/18/2014 CARL MALHOTRA PROFESSOR OF COMMUNICATION Ot V58.69 12/06/2014 LONG, BOBAN N Ot 161.1 12/06/2014 LONG, BOBAN N Ot [...] 01/17/2015 LONG, BOBAN N Ot V58.69 02/16/2015 OLNG, BOBAN N Ot 161.1 02/16/2015 LONG, BOBAN [...] 07/10/2015 LONG, BOBAN N Ot V15.3 07/10/2015 LONGLIZ RODRÍGUEZ N Ot V58.66 07/10/2015 LONGLIZ RODRÍGUEZ N Ot V58.69 08/06/2015 LOGNLIZ RODRÍGUEZ N Ot 161.1 08/06/2015 LONGLIZ RODRÍGUEZ N Ot 204.10 08/06/2015 LONGLIZ RODRÍGUEZ N Ot 585.3 08/06/2015 LONGLIZ RODRÍGUEZ N Ot V15.3 08/06/2015 LONGLIZ RODRÍGUEZ N Ot V58.66 08/06/2015 LONGLIZ RODRÍGUEZ N Ot V58.69 09/18/2015 MARYA CARL S PROFESSOR OF COMMUNICATION Ot 161.1 09/18/2015 MARYA CARL S PROFESSOR OF COMMUNICATION Ot 204.10 09/18/2015 MARYA LEXYAH S PROFESSOR OF COMMUNICATION Ot 287.5 09/18/2015 MARYA CARL S PROFESSOR OF COMMUNICATION Ot 585.3 09/18/2015 MARYA CARL S PROFESSOR OF COMMUNICATION Ot V15.3 09/18/2015 MARYA CARL S PROFESSOR OF COMMUNICATION Ot V58.66 09/18/2015 MARYA CARL S PROFESSOR OF COMMUNICATION Ot V58.69 10/04/2015 MARYA CARL S PROFESSOR OF COMMUNICATION Ot 161.1 10/04/2015 MARYA CARL S PROFESSOR OF COMMUNICATION Ot 204.10 10/04/2015 MARYA CARL S PROFESSOR OF COMMUNICATION Ot 287.5 10/04/2015 MARYA CARL S PROFESSOR OF COMMUNICATION Ot 585.3 10/04/2015 MARYA CARL S PROFESSOR OF COMMUNICATION Ot V15.3 10/04/2015 MARYA CARL S PROFESSOR OF COMMUNICATION Ot V58.66 10/04/2015 MARYA CARL S PROFESSOR OF COMMUNICATION Ot V58.69 11/10/2015 LIZ ALVES N Ot 161.1 11/10/2015 LONGLIZ RODRÍGUEZ N Ot 204.10 11/10/2015 LONGLIZ RODRÍGUEZ N Ot 585.3 11/10/2015 LONGLIZ RODRÍGUEZ N Ot C32.1 11/10/2015 LONGLIZ RODRÍGUEZ N Ot C91.10 11/10/2015 LONGLIZ RODRÍGUEZ N Ot N18.3 11/10/2015 LONGLIZ RODRÍGUEZ N Ot V15.3 11/10/2015 LONGLIZ RODRÍGUEZ N Ot V58.66 11/10/2015 LONG, BOBAN N Ot V58.69 11/10/2015 LONG, BOBAN N Ot Z79.82 11/10/2015 LONG, BOBAN N Ot Z92.3 11/29/2015 LONG, BOBAN N Ot C32.1 11/29/2015 LONG, BOBAN N Ot C91.10 11/29/2015 LONG, BOBAN N Ot N18.3 11/29/2015 LONG, BOBAN N Ot Z79.82 11/29/2015 LONG, BOBAN N Ot Z92.3 12/05/2015 MALHOTRA, HILAH S PROFESSOR OF COMMUNICATION Ot C32.1 12/05/2015 MALHOTRA, HILAH S PROFESSOR OF COMMUNICATION Ot C91.10 12/05/2015 MALHOTRA, HILAH S PROFESSOR OF COMMUNICATION Ot N18.3 12/05/2015 MALHOTRA, HILAH S PROFESSOR OF COMMUNICATION Ot Z79.82 12/05/2015 MALHOTRA, HILAH S PROFESSOR OF COMMUNICATION Ot Z92.3 12/27/2015 MALHOTRA, HILAH S PROFESSOR OF COMMUNICATION Ot C32.1 12/27/2015 MALHOTRA, HILAH S PROFESSOR OF COMMUNICATION Ot C91.10 12/27/2015 MALHOTRA, HILAH S PROFESSOR OF COMMUNICATION Ot N18.3 12/27/2015 MALHOTRA, HILAH S PROFESSOR OF COMMUNICATION Ot Z79.82 12/27/2015 MALHOTRA, HILAH S PROFESSOR OF COMMUNICATION Ot Z92.3 01/01/2016 LONG, BOBAN N Ot [...] 02/29/2016 LONG, BOBAN N Ot C91.10 02/29/2016 LIZ ALVES N Ot N18.3 02/29/2016 LIZ ALVES N Ot Z79.82 02/29/2016 LIZ ALVES N Ot Z92.3 04/15/2016 LIZ ALVES N Ot C32.1 MALIGNANT NEOPLASM OF SUPRAGLOTTIS 04/15/2016 LIZ ALVES N Ot C91.10 CHRONIC LYMPHOCYTIC LEUK OF B-CELL TYPE 04/15/2016 LIZ ALVES N Ot N18.3 CHRONIC KIDNEY DISEASE, STAGE 3 (MODERAT 04/15/2016 LIZ ALVES N Ot 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 04/15/2016 LIZ ALVES N Ot Z92.3 PERSONAL HISTORY OF IRRADIATION 04/18/2016 LIZ ALVES N Ot C32.1 MALIGNANT NEOPLASM OF SUPRAGLOTTIS 04/18/2016 LIZ ALVES N Ot C91.10 CHRONIC LYMPHOCYTIC LEUK OF B-CELL TYPE 04/18/2016 LIZ ALVES N Ot N18.3 CHRONIC KIDNEY DISEASE, STAGE 3 (MODERAT 04/18/2016 LIZ ALVES N Ot 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 04/18/2016 LIZ ALVES N Ot Z92.3 PERSONAL HISTORY OF IRRADIATION 05/28/2016 LIZ ALVES N Ot C32.1 MALIGNANT NEOPLASM OF SUPRAGLOTTIS 05/28/2016 LIZ ALVES N Ot C91.10 CHRONIC LYMPHOCYTIC LEUK OF B-CELL TYPE 05/28/2016 LIZ ALVES N Ot N18.3 CHRONIC KIDNEY DISEASE, STAGE 3 (MODERAT 05/28/2016 LIZ ALVES N Ot 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 05/28/2016 LIZ ALVES N Ot Z92.3 PERSONAL HISTORY OF IRRADIATION 05/31/2016 CARL MALHOTRAP Ot C32.1 MALIGNANT NEOPLASM OF SUPRAGLOTTIS 05/31/2016 CARL MALHOTRA PROFESSOR OF COMMUNICATION Ot C91.10 CHRONIC LYMPHOCYTIC LEUK OF B-CELL TYPE 05/31/2016 CARL MALHOTRA PROFESSOR OF COMMUNICATION Ot N18.3 CHRONIC KIDNEY DISEASE, STAGE 3 ( MODERAT 05/31/2016 CARL MALHOTRA PROFESSOR OF COMMUNICATION Ot Z79.82 [facility] (CURRENT) USE OF ASPIRIN 05/31/2016 CARL MALHOTRA PROFESSOR OF COMMUNICATION Ot Z92.3 PERSONAL HISTORY OF IRRADIATION 06/01/2016 MALHOTRACARL Lofton PROFESSOR OF COMMUNICATION Ot C32.1 MALIGNANT NEOPLASM OF SUPRAGLOTTIS 06/01/2016 CARL MALHOTRA PROFESSOR OF COMMUNICATION Ot C91.10 CHRONIC LYMPHOCYTIC LEUK OF B-CELL TYPE 06/01/2016 CARL MALHOTRA PROFESSOR OF COMMUNICATION Ot N18.3 CHRONIC KIDNEY DISEASE, STAGE 3 ( MODERAT 06/01/2016 MALHOTRACARL Lofton PROFESSOR OF COMMUNICATION Ot 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 06/01/2016 MALHOTRACARL Lofton PROFESSOR OF COMMUNICATION Ot Z92.3 PERSONAL HISTORY OF IRRADIATION 07/04/2016 MARYA CARL Lofton PROFESSOR OF COMMUNICATION Ot C32.1 MALIGNANT NEOPLASM OF SUPRAGLOTTIS 07/04/2016 MALHOTRACARL Lofton PROFESSOR OF COMMUNICATION Ot C91.10 CHRONIC LYMPHOCYTIC LEUK OF B-CELL TYPE 07/04/2016 MALHOTRACARL Lofton PROFESSOR OF COMMUNICATION Ot N18.3 CHRONIC KIDNEY DISEASE, STAGE 3 ( MODERAT 07/04/2016 MALHOTRACARL Lofton PROFESSOR OF COMMUNICATION Ot 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 07/04/2016 MALHOTRACARL Lofton PROFESSOR OF COMMUNICATION Ot Z92.3 PERSONAL HISTORY OF IRRADIATION 07/09/2016 MALHOTRA CARL Lofton PROFESSOR OF COMMUNICATION Ot C32.1 MALIGNANT NEOPLASM OF SUPRAGLOTTIS 07/09/2016 CARL MALHOTRA PROFESSOR OF COMMUNICATION Ot C91.10 CHRONIC LYMPHOCYTIC LEUK OF B-CELL TYPE 07/09/2016 CARL MALHOTRA PROFESSOR OF COMMUNICATION Ot N18.3 CHRONIC KIDNEY DISEASE, STAGE 3 ( MODERAT 07/09/2016 MALHOTRACARL Lofton PROFESSOR OF COMMUNICATION Ot Z79.82 [facility] (CURRENT) USE OF ASPIRIN 07/09/2016 MALHOTRACARL Lofton PROFESSOR OF COMMUNICATION Ot Z92.3 PERSONAL HISTORY OF IRRADIATION 07/11/2016 LEXY MALHOTRACORRINA Lofton PROFESSOR OF COMMUNICATION Ot C91.10 CHRONIC LYMPHOCYTIC LEUK OF B-CELL TYPE 08/02/2016 LEXY MALHOTRACORRINA Lofton PROFESSOR OF COMMUNICATION Ot C91.10 CHRONIC LYMPHOCYTIC LEUK OF B-CELL TYPE 08/05/2016 MARYA CARL Lofton PROFESSOR OF COMMUNICATION Ot C91.10 CHRONIC LYMPHOCYTIC LEUK OF B-CELL TYPE 08/22/2016 LIZ ALVES Ot C32.1 MALIGNANT NEOPLASM OF SUPRAGLOTTIS 08/22/2016 LIZ ALVES N Ot C91.10 CHRONIC LYMPHOCYTIC LEUK OF B-CELL TYPE 08/22/2016 LIZ ALVES N Ot N18.3 CHRONIC KIDNEY DISEASE, STAGE 3 (MODERAT 08/22/2016 LIZ ALVES N Ot 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 08/22/2016 LIZ ALVES N Ot Z92.3 PERSONAL HISTORY OF IRRADIATION 09/02/2016 LIZ ALVES N Ot C32.1 MALIGNANT NEOPLASM OF SUPRAGLOTTIS 09/02/2016 LIZ ALVES N Ot C91.10 CHRONIC LYMPHOCYTIC LEUK OF B-CELL TYPE 09/02/2016 LIZ ALVES N Ot N18.3 CHRONIC KIDNEY DISEASE, STAGE 3 (MODERAT 09/02/2016 LIZ ALVES N Ot 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 09/02/2016 LIZ ALVES N Ot Z92.3 PERSONAL HISTORY OF IRRADIATION 10/08/2016 LIZ ALVES N Ot C32.1 MALIGNANT NEOPLASM OF SUPRAGLOTTIS 10/08/2016 LIZ ALVES N Ot C91.10 CHRONIC LYMPHOCYTIC LEUK OF B-CELL TYPE 10/08/2016 LIZ ALVES N Ot N18.3 CHRONIC KIDNEY DISEASE, STAGE 3 (MODERAT 10/08/2016 LIZ ALVES N Ot 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 10/08/2016 LIZ ALVES N Ot Z92.3 PERSONAL HISTORY OF IRRADIATION 10/11/2016 LIZ ALVES N Ot C32.1 MALIGNANT NEOPLASM OF SUPRAGLOTTIS 10/11/2016 LIZ ALVES N Ot C91.10 CHRONIC LYMPHOCYTIC LEUK OF B-CELL TYPE 10/11/2016 LIZ ALVES N Ot N18.3 CHRONIC KIDNEY DISEASE, STAGE 3 (MODERAT 10/11/2016 LIZ ALVES N Ot Z79.82 [facility] (CURRENT) USE OF ASPIRIN 10/11/2016 LIZ ALVES N Ot Z92.3 PERSONAL HISTORY OF IRRADIATION 11/21/2016 LIZ ALVES N Ot C32.1 MALIGNANT NEOPLASM OF SUPRAGLOTTIS 11/21/2016 LIZ ALVES N Ot C91.10 CHRONIC LYMPHOCYTIC LEUK OF B-CELL TYPE 11/21/2016 LIZ ALVES N Ot N18.3 CHRONIC KIDNEY DISEASE, STAGE 3 (MODERAT 11/21/2016 LIZ ALVES N Ot 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 11/21/2016 LIZ ALVES N Ot Z92.3 PERSONAL HISTORY OF IRRADIATION 11/21/2016 LIZ ALVES N Ot C32.1 MALIGNANT NEOPLASM OF SUPRAGLOTTIS 11/21/2016 LIZ ALVES N Ot C91.10 CHRONIC LYMPHOCYTIC LEUK OF B-CELL TYPE 11/21/2016 LIZ ALVES N Ot N18.3 CHRONIC KIDNEY DISEASE, STAGE 3 (MODERAT 11/21/2016 LIZ ALVES N Ot Z79.82 [facility] (CURRENT) USE OF ASPIRIN 11/21/2016 LIZ ALVES N Ot Z92.3 PERSONAL HISTORY OF IRRADIATION 01/08/2017 LIZ ALVES N Ot C32.1 MALIGNANT NEOPLASM OF SUPRAGLOTTIS 01/08/2017 LIZ ALVES N Ot C91.10 CHRONIC LYMPHOCYTIC LEUK OF B-CELL TYPE 01/08/2017 LIZ ALVES N Ot N18.3 CHRONIC KIDNEY DISEASE, STAGE 3 (MODERAT 01/08/2017 LIZ ALVES N Ot 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 01/08/2017 LIZ ALVES N Ot Z92.3 PERSONAL HISTORY OF IRRADIATION 01/15/2017 LIZ ALVES N Ot C32.1 MALIGNANT NEOPLASM OF SUPRAGLOTTIS 01/15/2017 LIZ ALVES N Ot C91.10 CHRONIC LYMPHOCYTIC LEUK OF B-CELL TYPE 01/15/2017 LIZ ALVES N Ot N18.3 CHRONIC KIDNEY DISEASE, STAGE 3 (MODERAT 01/15/2017 LIZ ALVES N Ot Z79.82 [facility] (CURRENT) USE OF ASPIRIN 01/15/2017 LIZ ALVES N Ot Z92.3 PERSONAL HISTORY OF IRRADIATION 01/20/2017 LIZ ALVES N Ot C32.1 MALIGNANT NEOPLASM OF SUPRAGLOTTIS 01/20/2017 LIZ ALVES N Ot C91.10 CHRONIC LYMPHOCYTIC LEUK OF B-CELL TYPE 01/20/2017 LIZ ALVES N Ot N18.3 CHRONIC KIDNEY DISEASE, STAGE 3 (MODERAT 01/20/2017 LIZ ALVES N Ot Z79.82 [facility] (CURRENT) USE OF ASPIRIN 01/20/2017 LIZ ALVES N Ot Z92.3 PERSONAL HISTORY OF IRRADIATION 02/13/2017 LIZ ALVES N Ot C32.1 MALIGNANT NEOPLASM OF SUPRAGLOTTIS 02/13/2017 LIZ ALVES Cody Ot C91.10 CHRONIC LYMPHOCYTIC LEUK OF B-CELL TYPE 02/13/2017 LIZ ALVES Cody Ot N18.3 CHRONIC KIDNEY DISEASE, STAGE 3 (MODERAT 02/13/2017 LONG DAVONTEANT N Ot 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 02/13/2017 LIZ ALVES N Ot Z92.3 PERSONAL HISTORY OF IRRADIATION 02/17/2017 LIZ ALVES N Ot C32.1 MALIGNANT NEOPLASM OF SUPRAGLOTTIS 02/17/2017 LONG DAVONTEANT Cody Ot C91.10 CHRONIC LYMPHOCYTIC LEUK OF B-CELL TYPE 02/17/2017 LIZ ALVES Cody Ot N18.3 CHRONIC KIDNEY DISEASE, STAGE 3 (MODERAT 02/17/2017 LONG DAVONTEANT N Ot 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 02/17/2017 LIZ ALVES N Ot Z92.3 PERSONAL HISTORY OF IRRADIATION 04/16/2017 LIZ ALVES N Ot C32.1 MALIGNANT NEOPLASM OF SUPRAGLOTTIS 04/16/2017 LONG DAVONTEANT Cody Ot C91.10 CHRONIC LYMPHOCYTIC LEUK OF B-CELL TYPE 04/16/2017 LONG DAVONTEANT N Ot N18.3 CHRONIC KIDNEY DISEASE, STAGE 3 (MODERAT 04/16/2017 LONG DAVONTEANT N Ot Z79.82 [facility] (CURRENT) USE OF ASPIRIN 04/16/2017 LONG LIZ N Ot Z92.3 PERSONAL HISTORY OF IRRADIATION 04/24/2017 LONG LIZ N Ot C91.10 CHRONIC LYMPHOCYTIC LEUK OF B-CELL TYPE 04/24/2017 LONG LIZ N Ot 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 04/24/2017 LONG LIZ Ross Ot E78.00 PURE HYPERCHOLESTEROLEMIA, UNSPECIFIED 04/24/2017 LONG LIZ N Ot I12.9 HYPERTENSIVE CHRONIC KIDNEY DISEASE W ST 04/24/2017 LONG LIZ N Ot I25.10 ATHSCL HEART DISEASE OF [place] CORONARY 04/24/2017 LONG LIZ Ross Ot N18.3 CHRONIC KIDNEY DISEASE, STAGE 3 (MODERAT 04/24/2017 LIZ ALVES N Ot 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 04/24/2017 LIZ ALVES N Ot Z79.899 OTHER SHOWER ENCLOSURE INSTALLER (CURRENT) DRUG THERAPY 04/24/2017 LIZ ALVES N Ot 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 04/24/2017 LIZ ALVES N Ot Z92.3 PERSONAL HISTORY OF IRRADIATION 04/25/2017 EMMA JOHN, KRISTINE Juárez Ot C61 MALIGNANT NEOPLASM OF PROSTATE 04/25/2017 EMMA JOHN, KRISTINE Juárez Ot R16.1 SPLENOMEGALY, NOT ELSEWHERE CLASSIFIED 04/25/2017 KRISTINE CARTER MD Ot R59.1 GENERALIZED ENLARGED LYMPH NODES 05/05/2017 CARL MALHOTRAP Ot C91.10 CHRONIC LYMPHOCYTIC LEUK OF B-CELL TYPE 05/15/2017 LIZ ALVES Ot C91.10 CHRONIC LYMPHOCYTIC LEUK OF B-CELL TYPE 05/15/2017 LIZ ALVES N Ot 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 05/15/2017 LIZ ALVES N Ot E78.00 PURE HYPERCHOLESTEROLEMIA, UNSPECIFIED 05/15/2017 LIZ ALVES N Ot I12.9 HYPERTENSIVE CHRONIC KIDNEY DISEASE W ST 05/15/2017 LIZ ALVES N Ot I25.10 ATHSCL HEART DISEASE OF [place] CORONARY 05/15/2017 LIZ ALVES N Ot N18.3 CHRONIC KIDNEY DISEASE, STAGE 3 (MODERAT 05/15/2017 LIZ ALVES N Ot Z79.82 [facility] (CURRENT) USE OF ASPIRIN 05/15/2017 LIZ ALVES N Ot Z79.899 OTHER SHOWER ENCLOSURE INSTALLER (CURRENT) DRUG THERAPY 05/15/2017 LIZ ALVES N Ot 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 05/15/2017 LIZ ALVES N Ot Z92.3 PERSONAL HISTORY OF IRRADIATION 05/20/2017 CARL MALHOTRA PROFESSOR OF COMMUNICATION Ot C91.10 CHRONIC LYMPHOCYTIC LEUK OF B-CELL TYPE 05/21/2017 LIZ ALVES N Ot C91.10 CHRONIC LYMPHOCYTIC LEUK OF B-CELL TYPE 05/21/2017 LIZ ALVES N Ot 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 05/21/2017 LIZ ALVES N Ot E78.00 PURE HYPERCHOLESTEROLEMIA, UNSPECIFIED 05/21/2017 LONG DAVONTEANT N Ot I12.9 HYPERTENSIVE CHRONIC KIDNEY DISEASE W ST 05/21/2017 LONG LIZ Ross Ot I25.10 ATHSCL HEART DISEASE OF [place] CORONARY 05/21/2017 LONG DAVONTEANT Cody Ot N18.3 CHRONIC KIDNEY DISEASE, STAGE 3 (MODERAT 05/21/2017 LONG LIZ N Ot Z79.82 [facility] (CURRENT) USE OF ASPIRIN 05/21/2017 LONGLIZ RODRÍGUEZ N Ot Z79.899 OTHER SHOWER ENCLOSURE INSTALLER (CURRENT) DRUG THERAPY 05/21/2017 LONG LIZ Ross Ot 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 05/21/2017 LIZ ALVES Ot Z92.3 PERSONAL HISTORY OF IRRADIATION 05/29/2017 KRISTINE CARTER MD Ot C61 MALIGNANT NEOPLASM OF PROSTATE 05/29/2017 KRISTINE CARTER MD Ot R16.1 SPLENOMEGALY, NOT ELSEWHERE CLASSIFIED 05/29/2017 KRISTINE CARTER MD Ot R59.1 GENERALIZED ENLARGED LYMPH NODES 06/03/2017 KRISTINE CARTER MD Ot C61 MALIGNANT NEOPLASM OF PROSTATE 06/03/2017 KRISTINE CARTER MD Ot R16.1 SPLENOMEGALY, NOT ELSEWHERE CLASSIFIED 06/03/2017 KRISTINE CARTER MD Ot R59.1 GENERALIZED ENLARGED LYMPH NODES 07/21/2017 LIZ ALVES Ot C91.10 CHRONIC LYMPHOCYTIC LEUK OF B-CELL TYPE 07/21/2017 LIZ ALVES Ot 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 07/21/2017 LONG LIZ Ross Ot E78.00 PURE HYPERCHOLESTEROLEMIA, UNSPECIFIED 07/21/2017 LONG DAVONTEANT Cody Ot I12.9 HYPERTENSIVE CHRONIC KIDNEY DISEASE W ST 07/21/2017 LONG LIZ N Ot I25.10 ATHSCL HEART DISEASE OF [place] CORONARY 07/21/2017 LONG DAVONTEANT Cody Ot N18.3 CHRONIC KIDNEY DISEASE, STAGE 3 (MODERAT 07/21/2017 LONG DAVONTEANT N Ot 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 07/21/2017 LIZ ALVES N Ot Z79.899 OTHER [facility] (CURRENT) DRUG THERAPY 07/21/2017 LIZ ALVES N Ot 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 07/21/2017 LIZ ALVES N Ot Z92.3 PERSONAL HISTORY OF IRRADIATION 07/22/2017 LIZ ALVES N Ot C91.10 CHRONIC LYMPHOCYTIC LEUK OF B-CELL TYPE 07/22/2017 LIZ ALVES N Ot 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 07/22/2017 LIZ ALVES N Ot E78.00 PURE HYPERCHOLESTEROLEMIA, UNSPECIFIED 07/22/2017 LONG DAVONTEANT N Ot I12.9 HYPERTENSIVE CHRONIC KIDNEY DISEASE W ST 07/22/2017 LIZ ALVES N Ot I25.10 ATHSCL HEART DISEASE OF [place] CORONARY 07/22/2017 LIZ ALVES N Ot N18.3 CHRONIC KIDNEY DISEASE, STAGE 3 (MODERAT 07/22/2017 LONG LIZ N Ot 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 07/22/2017 LONGLIZ N Ot Z79.899 OTHER SHOWER ENCLOSURE INSTALLER (CURRENT) DRUG THERAPY 07/22/2017 LONG, LIZ N Ot 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 07/22/2017 LIZ ALVES N Ot Z92.3 PERSONAL HISTORY OF IRRADIATION 08/20/2017 LIZ ALVES N Ot C91.10 CHRONIC LYMPHOCYTIC LEUK OF B-CELL TYPE 08/20/2017 LIZ ALVES N Ot 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 08/20/2017 LIZ ALVES N Ot E78.00 PURE HYPERCHOLESTEROLEMIA, UNSPECIFIED 08/20/2017 LONG DAVONTEANT N Ot I12.9 HYPERTENSIVE CHRONIC KIDNEY DISEASE W ST 08/20/2017 LONG DAVONTEANT N Ot I25.10 ATHSCL HEART DISEASE OF [place] CORONARY 08/20/2017 LIZ ALVES N Ot N18.3 CHRONIC KIDNEY DISEASE, STAGE 3 (MODERAT 08/20/2017 LONGLIZ N Ot 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 08/20/2017 LONG LIZ N Ot Z79.899 OTHER [facility] (CURRENT) DRUG THERAPY 08/20/2017 LONG LIZ N Ot 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 08/20/2017 LONG DAVONTEANT N Ot Z92.3 PERSONAL HISTORY OF IRRADIATION 08/21/2017 LIZ ALVES N Ot C91.10 CHRONIC LYMPHOCYTIC LEUK OF B-CELL TYPE 08/21/2017 LONG LIZ N Ot 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 08/21/2017 LIZ ALVES N Ot E78.00 PURE HYPERCHOLESTEROLEMIA, UNSPECIFIED 08/21/2017 LIZ ALVES N Ot I12.9 HYPERTENSIVE CHRONIC KIDNEY DISEASE W ST 08/21/2017 LONG DAVONTEAN N Ot I25.10 ATHSCL HEART DISEASE OF [place] CORONARY 08/21/2017 LIZ ALVES N Ot N18.3 CHRONIC KIDNEY DISEASE, STAGE 3 (MODERAT 08/21/2017 LONG, DAVONTEAN N Ot 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 08/21/2017 LONG BOBAN N Ot Z79.899 OTHER SHOWER ENCLOSURE INSTALLER (CURRENT) DRUG THERAPY 08/21/2017 LONG, DAVONTEAN N Ot 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 08/21/2017 LONGLIZ N Ot Z92.3 PERSONAL HISTORY OF IRRADIATION 08/23/2017 LONG LIZ N Ot C91.10 CHRONIC LYMPHOCYTIC LEUK OF B-CELL TYPE 08/23/2017 LONG DAVONTEANT N Ot 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 08/23/2017 LONGLIZ N Ot E78.00 PURE HYPERCHOLESTEROLEMIA, UNSPECIFIED 08/23/2017 LONG DAVONTEANT N Ot I12.9 HYPERTENSIVE CHRONIC KIDNEY DISEASE W ST 08/23/2017 LIZ ALVES N Ot I25.10 ATHSCL HEART DISEASE OF [place] CORONARY 08/23/2017 LONG DAVONTEANT N Ot N18.3 CHRONIC KIDNEY DISEASE, STAGE 3 (MODERAT 08/23/2017 LONG LIZ N Ot Z79.82 [facility] (CURRENT) USE OF ASPIRIN 08/23/2017 LONG BOBAN N Ot Z79.899 OTHER SHOWER ENCLOSURE INSTALLER (CURRENT) DRUG THERAPY 08/23/2017 LONG BOBAN N Ot 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 08/23/2017 LONG BOBAN N Ot Z92.3 PERSONAL HISTORY OF IRRADIATION 08/30/2017 LONG DAVONTEAN N Ot C91.10 CHRONIC LYMPHOCYTIC LEUK OF B-CELL TYPE 08/30/2017 LONG BOBANT N Ot 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 08/30/2017 LIZ ALVES Ot E78.00 PURE HYPERCHOLESTEROLEMIA, UNSPECIFIED 08/30/2017 LIZ ALVES Ot I12.9 HYPERTENSIVE CHRONIC KIDNEY DISEASE W ST 08/30/2017 LIZ ALVES Cody Ot I25.10 ATHSCL HEART DISEASE OF [place] CORONARY 08/30/2017 LIZ ALVES Ot N18.3 CHRONIC KIDNEY DISEASE, STAGE 3 (MODERAT 08/30/2017 LIZ ALVES Ot Z79.82 [facility] (CURRENT) USE OF ASPIRIN 08/30/2017 LIZ ALVES Cody Ot Z79.899 OTHER [facility] (CURRENT) DRUG THERAPY 08/30/2017 LIZ ALVES Ot 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 08/30/2017 LONGLIZ RODRÍGUEZ Cody Ot Z92.3 PERSONAL HISTORY OF IRRADIATION 10/06/2017 ADRIANA RIDDLE MD Ot 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 CHRONIC LYMPHOCYTIC LEUK OF B-CELL TYPE 10/06/2017 ADRIANA RIDDLE MD Ot 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 10/06/2017 ADRIANA RIDDLE MD Ot E78.00 PURE HYPERCHOLESTEROLEMIA, UNSPECIFIED 10/06/2017 ADRIANA IRDDLE MD Ot I12.9 HYPERTENSIVE CHRONIC KIDNEY DISEASE W ST 10/06/2017 ADRIANA RIDDLE MD Ot I25.10 ATHSCL HEART DISEASE OF [place] CORONARY 10/06/2017 ADRIANA RIDDLE MD Ot N18.3 CHRONIC KIDNEY DISEASE, STAGE 3 (MODERAT 10/06/2017 ADRIANA RIDDLE MD Ot 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 Visit Date/Time Discharge Status Pt. Type Provider Facility Loc./Unit Complaint [id number] 10/10/2017 05:35:00 2016 12:00:00 DIS Outpatient FRANCISCO JOHN, NYA Hopkins [facility] PREOP SKIN LESION LEFT RELIGIOUS [id number] 10/03/2017 13:12:00 2016 23:59:59 CLS Outpatient ADRIANA RIDDLE MD [facility] ONC BONE MARROW [id number] 08/20/2017 13:12:00 2016 00:01:00 DIS Outpatient LONG DAVONTEANT N [facility] ONC BONE MARROW [id number] 07/21/2017 10:16:00 2016 00:01:00 DIS Outpatient LONGLIZ N [facility] ONC BONE MARROW [id number] 04/29/2017 09:24:00 2016 23:59:59 CLS Outpatient CARL MALHOTRA [facility] RAD C91.10 [id number] 03/18/2017 14:38:00 2016 00:01:00 DIS Outpatient LIZ ALVES Cody [facility] ONC BONE MARROW [id number] 04/11/2017 11:23:00 2016 23:59:59 CLS Outpatient KRISTINE CARTER MD [facility] RAD PROSTATE CA [id number] 11/14/2016 09:08:00 2016 00:01:00 DIS Outpatient LONG DAVONTEANT Ross [facility] ONC BONE MARROW [id number] 08/21/2016 09:03:00 2015 14:53:00 DIS Outpatient LONG, LIZ N [facility] ONC BONE MARROW [id number] 07/10/2016 14:19:00 2015 23:59:59 CLS Outpatient CARL MALHOTRA [facility] ONC [id number] 05/30/2016 10:08:00 2015 23:59:59 CLS Outpatient CARL MALHOTRA [facility] ONC [id number] 02/28/2016 09:45:00 2015 00:01:00 DIS Outpatient LIZ ALVES [facility] ONC [id number] 11/14/2015 12:23:00 2014 23:59:59 CLS Outpatient MALHOTRACARL Lofton Kirsty PROFESSOR OF COMMUNICATION [facility] ONC [id number] 10/03/2015 09:56:00 2014 23:59:59 CLS Outpatient LIZ ALVES [facility] ONC [id number] 08/22/2015 13:09:00 2014 23:59:59 CLS Outpatient LEXY MALHOTRACORRINA Kirsty PROFESSOR OF COMM[employer]ICATION [facility] ONC [id number] 05/08/2015 10:58:00 2014 00:01:00 DIS Outpatient LIZ ALVES [facility] ONC [id number] 01/16/2015 10:28:00 2014 00:01:00 DIS Preadmit LIZ ALVES [facility] ONC [id number] 09/14/2014 09:31:00 2013 23:59:59 CLS Outpatient LEXY MALHOTRACORRINA Kirsty PROFESSOR OF COMMUNICATION [facility] ONC [id number] 06/16/2014 10:49:00 2013 00:01:00 DIS Outpatient [id number] 03/22/2014 07:17:00 2013 23:59:59 CLS Outpatient [id number] 03/10/2014 12:54:00 2013 23:59:59 CLS Outpatient [id number] 12/08/2013 10:00:00 2013 00:01:00 DIS Outpatient [id number] 09/14/2013 13:54:00 2012 23:59:59 CLS Outpatient [id number] 06/07/2013 12:54:00 2012 00:01:00 DIS Outpatient [id number] 06/01/2013 08:29:00 2012 23:59:59 CLS Outpatient [id number] 10/15/2017 07:50:00 ACT Outpatient FRANCISCO JOHN, YNA Hopkins [facility] SKIN LESION LEFT RELIGIOUS
[2017-10-15] MEDS ORDERED: LACTATED RINGERS 1,000 ML IV PRN (08:26)
[2017-10-15 08:29] VITALS: BP 110/65
[2017-10-15] MEDS ORDERED: ONDANSETRON 4 MG/2 ML (SDV) Z0FRAN ONE (08:29)
[2017-10-15] MEDS ORDERED: LIDOCAINE PF 2% 5 ML (XYLOCAINE) VIAL ONE (08:29)
[2017-10-15] MEDS ORDERED: proPOfol 200 MG/20 ML (DIPRIVAN) VIAL IV ONE ×2 (08:29→10:46)
[2017-10-15] MEDS ORDERED: ceFAZolin 2 GM/NS 50 ML IV ONE (08:30)
[2017-10-15] MEDS ORDERED: CATHETER FLUSH 10 ML SYR IV PRN (08:30)
[2017-10-15] MEDS ORDERED: fentaNYL INJECTION 100 MCG/2 ML AMP ONE (08:30)
[2017-10-15] MEDS ORDERED: BUP/EPI 0.5% 1:200,000 (MARCAINE) 10ML VIAL IJ ONE (09:34)
--- NOTE | 2017-10-15 09:47 | Progress Note-Pre Operative ---
Pre-Operative Progress Note H&P Reviewed The H&P was reviewed, patient examined and no changes noted. Date Seen by Provider: Oct 09, 2017 Time Seen by Provider: 12:35 Date H&P Reviewed: Oct 15, 2017 Time H&P Reviewed: 09:46 Pre-Operative Diagnosis: Skin lesion left restorationist NYA SINGH MD Oct 15, 2017 9:46 am
[2017-10-15] MEDS ORDERED: ONDANSETRON 4 MG/2 ML (SDV) Z0FRAN IVP PRN (11:15)
[2017-10-15] MEDS ORDERED: morphine INJ 10 MG/ML 1ML (SYR OR VIAL) IVP PRN (11:15)
[2017-10-15 11:39] VITALS: BP 115/70
[2017-10-15 12:00] VITALS: BP 120/75
[2017-10-15] MEDS ORDERED: TRAM50TA2 PO (12:00)
--- NOTE | 2017-10-15 12:01 | Discharge Inst-Simple/Standard ---
Discharge Inst-Standard Discharge Medications New, Converted or Re-Newed RX: RX on Chart Patient Instructions/Follow Up Plan of Care/Instructions/FU: Follow-up with my nurse in 10 days for suture removal Activity as Tolerated: Yes Discharge Diet: No Restrictions NYA SINGH MD Oct 15, 2017 12:01 pm
--- NOTE | 2017-10-15 12:09 | Operative Report ---
Operative Report Date of Procedure/Surgery Oct 15, 2017 Surgeon (s) NYA SINGH MD Industrial Economics Teacher (s): N/A Post-Operative Diagnosis Basal cell carcinoma left worship Procedure Performed Excision with frozen section and primary closure Description of Procedure Anesthesia Type: MAC Estimated blood loss (mL): Minimal Specimen(s) collected/removed Basal cell carcinoma from left worship Description of the Procedure Indication for procedure: This gentleman presented with a 2 cm raised lesion over the left worship, having the appearance of a carcinoma. He was offered excision under monitored conditions with frozen section to confirm the diagnosis and ensure negative margins. Informed consent was obtained after discussing the procedure in detail. Description of procedure: He was placed supine on the operating table and our anesthesiologist administered sedation, monitoring his vital signs. A gram of Ancef was administered intravenously as prophylaxis against wound infection. Left worship was prepared and draped in the usual sterile manner. Local anesthesia was achieved using 0.5 percent Marcaine with epinephrine. An elliptical incision about 4 cm long by 2 cm in width was made and the lesion excised down to the muscle layer. It was oriented with silk sutures and sent for histologic examination. The pathologist confirmed a basal cell carcinoma with negative margins. Hemostasis was achieved using ligaclips and minimal use of cautery. The incision was then closed using 6-0 nylon, in an interrupted fashion. He tolerated the procedure well and was taken back to the nursing area in a stable condition. Findings of the Procedure See op report Allergies and Home Medications Allergies Coded Allergies: Sulfa (Sulfonamide Antibiotics) (Verified Allergy, Unknown, 10/10/17) Home Medications Allopurinol 300 Mg Tablet, 300 MG PO DAILY, (Reported) Calcium Carbonate 600 Mg Tablet, 600 MG PO DAILY, (Reported) Carvedilol 6.25 Mg Tablet, 3.125 MG PO DAILY, (Reported) Cholecalciferol (Vitamin D3) 1,000 Unit Capsule, 1,000 UNIT PO DAILY, (Reported) Furosemide 40 Mg Tablet, 20 MG PO DAILY, (Reported) Glimepiride 2 Mg Tablet, 2 MG PO BID, (Reported) Ibrutinib Unknown Strength Capsule, Unknown Dose PO DAILY, (Reported) [place]-3/Dha/Epa/Fish Oil 1 Each Capsule, 1 EACH PO DAILY, (Reported) Potassium Chloride 20 Meq Tab.er.prt, 20 MEQ PO DAILY, (Reported) Tramadol HCl 50 Mg Tablet, 50 MG PO Q12H PRN for PAIN-MILD TO MODERATE, #20 Prescribed by: NYA SINGH on 10/15/17 1200 NYA SINGH MD Oct 15, 2017 12:09 pm
[2017-10-15 12:49] VITALS: BP 120/75
== END 2017-10-15 12:30 | disposition home or self-care (01) ==
LOC: SDC 07:50
PROVIDERS: ATTEND Surgery
DX: C44.310 Basal cell carcinoma of skin of unspecified parts of face (principal); Z88.2 Allergy status to sulfonamides; I48.92 Unspecified atrial flutter; I25.10 Atherosclerotic heart disease of native coronary artery without angina pectoris; C91.10 Chronic lymphocytic leukemia of B-cell type not having achieved remission; Z95.1 Presence of aortocoronary bypass graft; Z79.84 Long term (current) use of oral hypoglycemic drugs; Z95.0 Presence of cardiac pacemaker; E11.9 Type 2 diabetes mellitus without complications; I12.9 Hypertensive chronic kidney disease with stage 1 through stage 4 chronic kidney disease, or unspecified chronic kidney disease; N18.3 Chronic kidney disease, stage 3 (moderate); D69.6 Thrombocytopenia, unspecified; G47.33 Obstructive sleep apnea (adult) (pediatric); Z87.891 Personal history of nicotine dependence; Z85.21 Personal history of malignant neoplasm of larynx; Z79.899 Other long term (current) drug therapy
CPT/HCPCS: 82962; 87081; 88305; 88331; 88332

== ENCOUNTER 2017-10-23 13:09 | Outpatient (RCR) | payer MEDICARE, OTHER ==
[2017-10-03 13:46] LABS: BASOPHILS # (AUTO) 0.1 10^3/uL (0.0-0.1); BASOPHILS % (AUTO) 0 % (0-10); EOSINOPHILS % (AUTO) 0 % (0-10); LYMPHOCYTES # (AUTO) 49.5 X 10^3 (1.0-4.0); LYMPHOCYTES % (AUTO) 96 % (12-44); MEAN CORPUSCULAR HEMOGLOBIN 37 PG (25-34); MEAN CORPUSCULAR HGB CONC 34 G/DL (32-36); MEAN CORPUSCULAR VOLUME 111 FL (80-99); MEAN PLATELET VOLUME 11.3 FL (7.4-10.4); MONOCYTES # (AUTO) 0.5 X 10^3 (0.0-1.0); MONOCYTES % (AUTO) 1 % (0-12); NEUTROPHILS # (AUTO) 1.2 X 10^3 (1.8-7.8); NEUTROPHILS % (AUTO) 2 % (42-75); PLATELET COUNT 121 10^3/uL (130-400); RED BLOOD COUNT 2.45 10^6/uL (4.35-5.85); RED CELL DISTRIBUTION WIDTH 16.5 % (10.0-14.5)
[2017-10-03 14:04] LABS: WHITE BLOOD COUNT 51.4 10^3/uL (4.3-11.0)
[2017-10-03 14:05] LABS: ALANINE AMINOTRANSFERASE 42 U/L (0-55); ALBUMIN 3.6 GM/DL (3.2-4.5); ANION GAP 11 MMOL/L (5-14); ASPARTATE AMINO TRANSFERASE 36 U/L (5-34); BILIRUBIN,TOTAL 0.9 MG/DL (0.1-1.0); BLOOD UREA NITROGEN 17 MG/DL (7-18); BUN/CREATININE RATIO 19; CALCIUM 9.2 MG/DL (8.5-10.1); CARBON DIOXIDE 24 MMOL/L (21-32); CHLORIDE 104 MMOL/L (98-107); GFR ESTIMATED > 60; GLUCOSE 215 MG/DL (70-105); LACTATE DEHYDROGENASE 185 U/L (125-220); POTASSIUM 4.8 MMOL/L (3.6-5.0); SODIUM 139 MMOL/L (135-145); TOTAL PROTEIN 6.8 GM/DL (6.4-8.2)
[~2017-10-23 13:09] MED LIST changes: +TRAM50TA2 PO
[2017-10-23 13:38] LABS: BASOPHILS # (AUTO) 1.3 10^3/uL (0.0-0.1); BASOPHILS % (AUTO) 1 % (0-10); EOSINOPHILS # (AUTO) 0.1 10^3/uL (0.0-0.3); EOSINOPHILS % (AUTO) 0 % (0-10); LYMPHOCYTES # (AUTO) 162.5 X 10^3 (1.0-4.0); LYMPHOCYTES % (AUTO) 97 % (12-44); MEAN CORPUSCULAR HEMOGLOBIN 37 PG (25-34); MEAN CORPUSCULAR HGB CONC 32 G/DL (32-36); MEAN CORPUSCULAR VOLUME 115 FL (80-99); MEAN PLATELET VOLUME 11.4 FL (7.4-10.4); MONOCYTES % (AUTO) 2 % (0-12); NEUTROPHILS # (AUTO) 0.8 X 10^3 (1.8-7.8); NEUTROPHILS % (AUTO) 1 % (42-75); PLATELET COUNT 52 10^3/uL (130-400); RED BLOOD COUNT 2.38 10^6/uL (4.35-5.85)
[2017-10-23 13:40] LABS: WHITE BLOOD COUNT 167.7 10^3/uL (4.3-11.0)
[2017-10-23 13:57] LABS: ALANINE AMINOTRANSFERASE 15 U/L (0-55); ALBUMIN 3.9 GM/DL (3.2-4.5); ANION GAP 8 MMOL/L (5-14); ASPARTATE AMINO TRANSFERASE 17 U/L (5-34); BILIRUBIN,TOTAL 0.7 MG/DL (0.1-1.0); BLOOD UREA NITROGEN 15 MG/DL (7-18); BUN/CREATININE RATIO 18; CALCIUM 9.7 MG/DL (8.5-10.1); CARBON DIOXIDE 30 MMOL/L (21-32); CHLORIDE 103 MMOL/L (98-107); CREATININE SERUM 0.82 MG/DL (0.60-1.30); GFR ESTIMATED > 60; GLUCOSE 110 MG/DL (70-105); LACTATE DEHYDROGENASE 192 U/L (125-220); POTASSIUM 4.9 MMOL/L (3.6-5.0); SODIUM 141 MMOL/L (135-145)
== END 2017-10-27 10:01 | disposition home or self-care (01) ==
LOC: ONC 13:09
PROVIDERS: ATTEND Internal Medicine Hematology & Oncology
DX: C91.10 Chronic lymphocytic leukemia of B-cell type not having achieved remission (principal); Z85.21 Personal history of malignant neoplasm of larynx; N18.3 Chronic kidney disease, stage 3 (moderate); I12.9 Hypertensive chronic kidney disease with stage 1 through stage 4 chronic kidney disease, or unspecified chronic kidney disease; E11.22 Type 2 diabetes mellitus with diabetic chronic kidney disease; I25.10 Atherosclerotic heart disease of native coronary artery without angina pectoris; E78.00 Pure hypercholesterolemia, unspecified; Z92.3 Personal history of irradiation; Z79.82 Long term (current) use of aspirin; Z79.899 Other long term (current) drug therapy
CPT/HCPCS: 36415; 80053; 83615; 85025; 99213

== ENCOUNTER 2017-11-05 10:29 | Outpatient (RCR) | payer MEDICARE, OTHER ==
[2017-10-28 14:59] LABS: BASOPHILS # (AUTO) 0.5 10^3/uL (0.0-0.1); BASOPHILS % (AUTO) 0 % (0-10); EOSINOPHILS # (AUTO) 0.1 10^3/uL (0.0-0.3); EOSINOPHILS % (AUTO) 0 % (0-10); LYMPHOCYTES # (AUTO) 132.5 X 10^3 (1.0-4.0); LYMPHOCYTES % (AUTO) 97 % (12-44); MEAN CORPUSCULAR HEMOGLOBIN 37 PG (25-34); MEAN CORPUSCULAR HGB CONC 33 G/DL (32-36); MEAN CORPUSCULAR VOLUME 114 FL (80-99); MEAN PLATELET VOLUME 10.8 FL (7.4-10.4); MONOCYTES # (AUTO) 2.3 X 10^3 (0.0-1.0); MONOCYTES % (AUTO) 2 % (0-12); NEUTROPHILS # (AUTO) 1.8 X 10^3 (1.8-7.8); NEUTROPHILS % (AUTO) 1 % (42-75); PLATELET COUNT 78 10^3/uL (130-400); RED BLOOD COUNT 2.48 10^6/uL (4.35-5.85)
[2017-10-28 15:21] LABS: ALANINE AMINOTRANSFERASE 23 U/L (0-55); ALBUMIN 4.1 GM/DL (3.2-4.5); ANION GAP 12 MMOL/L (5-14); ASPARTATE AMINO TRANSFERASE 25 U/L (5-34); BILIRUBIN,TOTAL 0.7 MG/DL (0.1-1.0); BLOOD UREA NITROGEN 19 MG/DL (7-18); BUN/CREATININE RATIO 20; CALCIUM 9.7 MG/DL (8.5-10.1); CARBON DIOXIDE 26 MMOL/L (21-32); CHLORIDE 103 MMOL/L (98-107); CREATININE SERUM 0.96 MG/DL (0.60-1.30); GFR ESTIMATED > 60; GLUCOSE 111 MG/DL (70-105); LACTATE DEHYDROGENASE 214 U/L (125-220); MAGNESIUM 1.7 MG/DL (1.8-2.4); POTASSIUM 4.4 MMOL/L (3.6-5.0); SODIUM 141 MMOL/L (135-145); TOTAL PROTEIN 7.7 GM/DL (6.4-8.2); URIC ACID 4.4 MG/DL (2.6-7.2)
[2017-10-28 15:26] LABS: WHITE BLOOD COUNT 137.2 10^3/uL (4.3-11.0)
[~2017-11-05] VITALS: Ht 171.4 cm; Wt 86.2 kg
[~2017-11-05 10:29] MED LIST changes: +BENDAMUSTINE HCL 140 MG in NS (IVPB) CANCER CENTER 50 ML IV SCH; +NS IV 1000 ML (CANCER CTR) IV SCH; +ONDANSETRON MDV (CANCER CENTER 8 MG, DEXAMETHASONE INJ (CANCER CTR) 4 MG in NS (IVPB) C... IV SCH
[2017-11-05 10:42] LABS: BASOPHILS # (AUTO) 0.1 10^3/uL (0.0-0.1); BASOPHILS % (AUTO) 0 % (0-10); EOSINOPHILS # (AUTO) 0.1 10^3/uL (0.0-0.3); EOSINOPHILS % (AUTO) 0 % (0-10); LYMPHOCYTES # (AUTO) 58.3 X 10^3 (1.0-4.0); LYMPHOCYTES % (AUTO) 96 % (12-44); MEAN CORPUSCULAR HEMOGLOBIN 37 PG (25-34); MEAN CORPUSCULAR HGB CONC 32 G/DL (32-36); MEAN CORPUSCULAR VOLUME 116 FL (80-99); MEAN PLATELET VOLUME 9.8 FL (7.4-10.4); MONOCYTES % (AUTO) 2 % (0-12); NEUTROPHILS # (AUTO) 1.6 X 10^3 (1.8-7.8); NEUTROPHILS % (AUTO) 3 % (42-75); PLATELET COUNT 97 10^3/uL (130-400); RED BLOOD COUNT 2.46 10^6/uL (4.35-5.85); RED CELL DISTRIBUTION WIDTH 16.2 % (10.0-14.5)
[2017-11-05 11:00] LABS: ANION GAP 8 MMOL/L (5-14); BLOOD UREA NITROGEN 13 MG/DL (7-18); BUN/CREATININE RATIO 16; CALCIUM 9.3 MG/DL (8.5-10.1); CARBON DIOXIDE 27 MMOL/L (21-32); CHLORIDE 105 MMOL/L (98-107); CREATININE SERUM 0.82 MG/DL (0.60-1.30); GFR ESTIMATED > 60; GLUCOSE 158 MG/DL (70-105); MAGNESIUM 1.7 MG/DL (1.8-2.4); POTASSIUM 4.6 MMOL/L (3.6-5.0); SODIUM 140 MMOL/L (135-145)
== END 2017-11-07 16:33 | disposition home or self-care (01) ==
LOC: ONC 10:29
PROVIDERS: ATTEND Internal Medicine Hematology & Oncology
DX: C44.310 Basal cell carcinoma of skin of unspecified parts of face (principal); C91.10 Chronic lymphocytic leukemia of B-cell type not having achieved remission; Z85.21 Personal history of malignant neoplasm of larynx; N18.3 Chronic kidney disease, stage 3 (moderate); I12.9 Hypertensive chronic kidney disease with stage 1 through stage 4 chronic kidney disease, or unspecified chronic kidney disease; E11.22 Type 2 diabetes mellitus with diabetic chronic kidney disease; I25.10 Atherosclerotic heart disease of native coronary artery without angina pectoris; E78.00 Pure hypercholesterolemia, unspecified; Z92.3 Personal history of irradiation; Z79.82 Long term (current) use of aspirin; Z79.899 Other long term (current) drug therapy
CPT/HCPCS: 36415; 80048; 80053; 80074; 83615; 83735; 84550; 85025; 96375; 96409

== ENCOUNTER 2017-11-12 10:45 | Outpatient (RCR) | payer MEDICARE, OTHER ==
[~2017-11-12 10:45] MED LIST changes: -BENDAMUSTINE HCL 140 MG in NS (IVPB) CANCER CENTER 50 ML IV SCH; -NS IV 1000 ML (CANCER CTR) IV SCH; -ONDANSETRON MDV (CANCER CENTER 8 MG, DEXAMETHASONE INJ (CANCER CTR) 4 MG in NS (IVPB) C... IV SCH
[2017-11-12 13:12] LABS: BASOPHILS % (AUTO) 0 % (0-10); EOSINOPHILS # (AUTO) 0.1 10^3/uL (0.0-0.3); EOSINOPHILS % (AUTO) 0 % (0-10); LYMPHOCYTES # (AUTO) 29.8 X 10^3 (1.0-4.0); LYMPHOCYTES % (AUTO) 95 % (12-44); MEAN CORPUSCULAR HEMOGLOBIN 38 PG (25-34); MEAN CORPUSCULAR HGB CONC 34 G/DL (32-36); MEAN CORPUSCULAR VOLUME 112 FL (80-99); MEAN PLATELET VOLUME 10.2 FL (7.4-10.4); MONOCYTES # (AUTO) 0.7 X 10^3 (0.0-1.0); MONOCYTES % (AUTO) 2 % (0-12); NEUTROPHILS # (AUTO) 0.8 X 10^3 (1.8-7.8); NEUTROPHILS % (AUTO) 3 % (42-75); PLATELET COUNT 85 10^3/uL (130-400); RED BLOOD COUNT 2.64 10^6/uL (4.35-5.85); RED CELL DISTRIBUTION WIDTH 15.9 % (10.0-14.5)
[2017-11-12 13:14] LABS: WHITE BLOOD COUNT 31.5 10^3/uL (4.3-11.0)
[2017-11-12 13:30] LABS: ANION GAP 8 MMOL/L (5-14); BLOOD UREA NITROGEN 13 MG/DL (7-18); BUN/CREATININE RATIO 17; CALCIUM 9.8 MG/DL (8.5-10.1); CARBON DIOXIDE 28 MMOL/L (21-32); CHLORIDE 106 MMOL/L (98-107); CREATININE SERUM 0.78 MG/DL (0.60-1.30); GFR ESTIMATED > 60; GLUCOSE 79 MG/DL (70-105); POTASSIUM 4.6 MMOL/L (3.6-5.0); SODIUM 142 MMOL/L (135-145); URIC ACID 5.4 MG/DL (2.6-7.2)
== END 2017-11-19 15:09 | disposition home or self-care (01) ==
LOC: ONC 10:45
PROVIDERS: ATTEND Internal Medicine Hematology & Oncology
DX: C44.310 Basal cell carcinoma of skin of unspecified parts of face (principal); C91.10 Chronic lymphocytic leukemia of B-cell type not having achieved remission; Z85.21 Personal history of malignant neoplasm of larynx; N18.3 Chronic kidney disease, stage 3 (moderate); I12.9 Hypertensive chronic kidney disease with stage 1 through stage 4 chronic kidney disease, or unspecified chronic kidney disease; E11.22 Type 2 diabetes mellitus with diabetic chronic kidney disease; I25.10 Atherosclerotic heart disease of native coronary artery without angina pectoris; E78.00 Pure hypercholesterolemia, unspecified; Z92.3 Personal history of irradiation; Z79.82 Long term (current) use of aspirin; Z79.899 Other long term (current) drug therapy
CPT/HCPCS: 36415; 80048; 84550; 85025; 99213

== ENCOUNTER 2017-11-20 10:11 | Outpatient (RCR) | payer MEDICARE, OTHER ==
[2017-11-20 10:27] LABS: BASOPHILS % (AUTO) 0 % (0-10); EOSINOPHILS # (AUTO) 0.1 10^3/uL (0.0-0.3); EOSINOPHILS % (AUTO) 0 % (0-10); HEMATOCRIT 29 % (40-54); HEMOGLOBIN 9.6 G/DL (13.3-17.7); LYMPHOCYTES # (AUTO) 19.1 X 10^3 (1.0-4.0); LYMPHOCYTES % (AUTO) 92 % (12-44); MEAN CORPUSCULAR HEMOGLOBIN 37 PG (25-34); MEAN CORPUSCULAR HGB CONC 33 G/DL (32-36); MEAN CORPUSCULAR VOLUME 112 FL (80-99); MEAN PLATELET VOLUME 9.2 FL (7.4-10.4); MONOCYTES # (AUTO) 1.1 X 10^3 (0.0-1.0); MONOCYTES % (AUTO) 5 % (0-12); NEUTROPHILS # (AUTO) 0.3 X 10^3 (1.8-7.8); NEUTROPHILS % (AUTO) 2 % (42-75); PLATELET COUNT 53 10^3/uL (130-400); WHITE BLOOD COUNT 20.7 10^3/uL (4.3-11.0)
[2017-11-20 10:51] LABS: BUN/CREATININE RATIO 15; CALCIUM 9.4 MG/DL (8.5-10.1); CARBON DIOXIDE 27 MMOL/L (21-32); CHLORIDE 105 MMOL/L (98-107); CREATININE SERUM 0.92 MG/DL (0.60-1.30); GFR ESTIMATED > 60; GLUCOSE 184 MG/DL (70-105); POTASSIUM 5.2 MMOL/L (3.6-5.0); SODIUM 141 MMOL/L (135-145)
== END 2017-11-25 14:21 | disposition home or self-care (01) ==
LOC: ONC 10:11
PROVIDERS: ATTEND Internal Medicine Hematology & Oncology
DX: C44.310 Basal cell carcinoma of skin of unspecified parts of face (principal); C91.10 Chronic lymphocytic leukemia of B-cell type not having achieved remission; Z85.21 Personal history of malignant neoplasm of larynx; N18.3 Chronic kidney disease, stage 3 (moderate); I12.9 Hypertensive chronic kidney disease with stage 1 through stage 4 chronic kidney disease, or unspecified chronic kidney disease; E11.22 Type 2 diabetes mellitus with diabetic chronic kidney disease; I25.10 Atherosclerotic heart disease of native coronary artery without angina pectoris; E78.00 Pure hypercholesterolemia, unspecified; Z92.3 Personal history of irradiation; Z79.82 Long term (current) use of aspirin; Z79.899 Other long term (current) drug therapy
CPT/HCPCS: 80048; 85025; 99213

== ENCOUNTER 2018-02-18 09:28 | Outpatient (RCR) | payer MEDICARE, OTHER ==
[2017-11-26 08:13] LABS: BASOPHILS % (AUTO) 0 % (0-10); EOSINOPHILS # (AUTO) 0.2 10^3/uL (0.0-0.3); EOSINOPHILS % (AUTO) 1 % (0-10); HEMATOCRIT 32 % (40-54); HEMOGLOBIN 10.7 G/DL (13.3-17.7); LYMPHOCYTES # (AUTO) 29.1 X 10^3 (1.0-4.0); LYMPHOCYTES % (AUTO) 94 % (12-44); MEAN CORPUSCULAR HEMOGLOBIN 37 PG (25-34); MEAN CORPUSCULAR HGB CONC 34 G/DL (32-36); MEAN CORPUSCULAR VOLUME 111 FL (80-99); MEAN PLATELET VOLUME 10.5 FL (7.4-10.4); MONOCYTES # (AUTO) 0.9 X 10^3 (0.0-1.0); MONOCYTES % (AUTO) 3 % (0-12); NEUTROPHILS # (AUTO) 0.9 X 10^3 (1.8-7.8); NEUTROPHILS % (AUTO) 3 % (42-75); PLATELET COUNT 76 10^3/uL (130-400); RED BLOOD COUNT 2.86 10^6/uL (4.35-5.85); RED CELL DISTRIBUTION WIDTH 16.8 % (10.0-14.5)
[2017-11-26 08:18] LABS: WHITE BLOOD COUNT 31.1 10^3/uL (4.3-11.0)
[2017-11-26 08:29] LABS: ALANINE AMINOTRANSFERASE 29 U/L (0-55); ALBUMIN 4.1 GM/DL (3.2-4.5); ALKALINE PHOSPHATASE 87 U/L (40-136); BILIRUBIN,TOTAL 0.8 MG/DL (0.1-1.0); BUN/CREATININE RATIO 22; CALCIUM 9.7 MG/DL (8.5-10.1); CARBON DIOXIDE 24 MMOL/L (21-32); CHLORIDE 103 MMOL/L (98-107); CREATININE SERUM 0.97 MG/DL (0.60-1.30); GFR ESTIMATED > 60; GLUCOSE 266 MG/DL (70-105); POTASSIUM 4.9 MMOL/L (3.6-5.0); SODIUM 140 MMOL/L (135-145); TOTAL PROTEIN 6.8 GM/DL (6.4-8.2); URIC ACID 4.7 MG/DL (2.6-7.2)
[2017-12-03 11:42] LABS: BASOPHILS % (AUTO) 0 % (0-10); EOSINOPHILS # (AUTO) 0.1 10^3/uL (0.0-0.3); EOSINOPHILS % (AUTO) 1 % (0-10); HEMATOCRIT 27 % (40-54); HEMOGLOBIN 9.3 G/DL (13.3-17.7); LYMPHOCYTES # (AUTO) 10.6 X 10^3 (1.0-4.0); LYMPHOCYTES % (AUTO) 90 % (12-44); MEAN CORPUSCULAR HEMOGLOBIN 38 PG (25-34); MEAN CORPUSCULAR HGB CONC 34 G/DL (32-36); MEAN CORPUSCULAR VOLUME 111 FL (80-99); MEAN PLATELET VOLUME 9.5 FL (7.4-10.4); MONOCYTES # (AUTO) 0.1 X 10^3 (0.0-1.0); MONOCYTES % (AUTO) 1 % (0-12); NEUTROPHILS # (AUTO) 1.1 X 10^3 (1.8-7.8); NEUTROPHILS % (AUTO) 9 % (42-75); PLATELET COUNT 71 10^3/uL (130-400); RED BLOOD COUNT 2.45 10^6/uL (4.35-5.85); RED CELL DISTRIBUTION WIDTH 17.2 % (10.0-14.5); WHITE BLOOD COUNT 11.9 10^3/uL (4.3-11.0)
[2017-12-03 11:56] LABS: BUN/CREATININE RATIO 19; CALCIUM 9.5 MG/DL (8.5-10.1); CARBON DIOXIDE 25 MMOL/L (21-32); CHLORIDE 104 MMOL/L (98-107); CREATININE SERUM 0.84 MG/DL (0.60-1.30); GFR ESTIMATED > 60; GLUCOSE 97 MG/DL (70-105); POTASSIUM 4.1 MMOL/L (3.6-5.0); SODIUM 140 MMOL/L (135-145)
[2017-12-10 10:20] LABS: BASOPHILS % (AUTO) 0 % (0-10); EOSINOPHILS # (AUTO) 0.1 10^3/uL (0.0-0.3); EOSINOPHILS % (AUTO) 1 % (0-10); HEMATOCRIT 26 % (40-54); HEMOGLOBIN 8.8 G/DL (13.3-17.7); LYMPHOCYTES # (AUTO) 7.2 X 10^3 (1.0-4.0); LYMPHOCYTES % (AUTO) 91 % (12-44); MEAN CORPUSCULAR HEMOGLOBIN 38 PG (25-34); MEAN CORPUSCULAR HGB CONC 34 G/DL (32-36); MEAN CORPUSCULAR VOLUME 111 FL (80-99); MEAN PLATELET VOLUME 9.7 FL (7.4-10.4); MONOCYTES # (AUTO) 0.1 X 10^3 (0.0-1.0); MONOCYTES % (AUTO) 1 % (0-12); NEUTROPHILS # (AUTO) 0.5 X 10^3 (1.8-7.8); NEUTROPHILS % (AUTO) 7 % (42-75); PLATELET COUNT 83 10^3/uL (130-400); RED BLOOD COUNT 2.33 10^6/uL (4.35-5.85); RED CELL DISTRIBUTION WIDTH 17.5 % (10.0-14.5); WHITE BLOOD COUNT 7.9 10^3/uL (4.3-11.0)
[2017-12-10 10:37] LABS: BUN/CREATININE RATIO 16; CALCIUM 9.2 MG/DL (8.5-10.1); CARBON DIOXIDE 25 MMOL/L (21-32); CHLORIDE 105 MMOL/L (98-107); CREATININE SERUM 0.91 MG/DL (0.60-1.30); GFR ESTIMATED > 60; GLUCOSE 272 MG/DL (70-105); POTASSIUM 4.1 MMOL/L (3.6-5.0); SODIUM 140 MMOL/L (135-145)
[2017-12-17 10:29] LABS: BASOPHILS % (AUTO) 0 % (0-10); EOSINOPHILS % (AUTO) 1 % (0-10); HEMATOCRIT 25 % (40-54); HEMOGLOBIN 8.4 G/DL (13.3-17.7); LYMPHOCYTES # (AUTO) 5.8 X 10^3 (1.0-4.0); LYMPHOCYTES % (AUTO) 91 % (12-44); MEAN CORPUSCULAR HEMOGLOBIN 37 PG (25-34); MEAN CORPUSCULAR HGB CONC 34 G/DL (32-36); MEAN CORPUSCULAR VOLUME 111 FL (80-99); MEAN PLATELET VOLUME 10.3 FL (7.4-10.4); MONOCYTES % (AUTO) 0 % (0-12); NEUTROPHILS # (AUTO) 0.5 X 10^3 (1.8-7.8); NEUTROPHILS % (AUTO) 9 % (42-75); PLATELET COUNT 92 10^3/uL (130-400); RED BLOOD COUNT 2.25 10^6/uL (4.35-5.85); RED CELL DISTRIBUTION WIDTH 17.8 % (10.0-14.5); WHITE BLOOD COUNT 6.4 10^3/uL (4.3-11.0)
[2017-12-17 10:42] LABS: BUN/CREATININE RATIO 15; CALCIUM 9.2 MG/DL (8.5-10.1); CARBON DIOXIDE 24 MMOL/L (21-32); CHLORIDE 104 MMOL/L (98-107); CREATININE SERUM 1.02 MG/DL (0.60-1.30); GFR ESTIMATED > 60; GLUCOSE 290 MG/DL (70-105); POTASSIUM 3.8 MMOL/L (3.6-5.0); SODIUM 140 MMOL/L (135-145)
[2017-12-24 09:48] LABS: BASOPHILS % (AUTO) 0 % (0-10); EOSINOPHILS % (AUTO) 0 % (0-10); HEMATOCRIT 26 % (40-54); HEMOGLOBIN 8.9 G/DL (13.3-17.7); LYMPHOCYTES # (AUTO) 5.7 X 10^3 (1.0-4.0); LYMPHOCYTES % (AUTO) 81 % (12-44); MEAN CORPUSCULAR HEMOGLOBIN 38 PG (25-34); MEAN CORPUSCULAR HGB CONC 34 G/DL (32-36); MEAN CORPUSCULAR VOLUME 112 FL (80-99); MEAN PLATELET VOLUME 10.6 FL (7.4-10.4); MONOCYTES # (AUTO) 0.1 X 10^3 (0.0-1.0); MONOCYTES % (AUTO) 1 % (0-12); NEUTROPHILS # (AUTO) 1.2 X 10^3 (1.8-7.8); NEUTROPHILS % (AUTO) 17 % (42-75); PLATELET COUNT 117 10^3/uL (130-400); RED BLOOD COUNT 2.32 10^6/uL (4.35-5.85); RED CELL DISTRIBUTION WIDTH 18.4 % (10.0-14.5)
[2017-12-24 10:11] LABS: ALANINE AMINOTRANSFERASE 15 U/L (0-55); ALBUMIN 3.9 GM/DL (3.2-4.5); ALKALINE PHOSPHATASE 80 U/L (40-136); BILIRUBIN,TOTAL 0.7 MG/DL (0.1-1.0); BUN/CREATININE RATIO 16; CALCIUM 9.4 MG/DL (8.5-10.1); CARBON DIOXIDE 25 MMOL/L (21-32); CHLORIDE 105 MMOL/L (98-107); CREATININE SERUM 0.95 MG/DL (0.60-1.30); GFR ESTIMATED > 60; GLUCOSE 206 MG/DL (70-105); POTASSIUM 3.8 MMOL/L (3.6-5.0); SODIUM 141 MMOL/L (135-145); TOTAL PROTEIN 6.7 GM/DL (6.4-8.2)
[2017-12-31 10:35] LABS: BASOPHILS % (AUTO) 0 % (0-10); EOSINOPHILS % (AUTO) 0 % (0-10); HEMATOCRIT 28 % (40-54); HEMOGLOBIN 9.2 G/DL (13.3-17.7); LYMPHOCYTES # (AUTO) 5.6 X 10^3 (1.0-4.0); LYMPHOCYTES % (AUTO) 77 % (12-44); MEAN CORPUSCULAR HEMOGLOBIN 37 PG (25-34); MEAN CORPUSCULAR HGB CONC 33 G/DL (32-36); MEAN CORPUSCULAR VOLUME 113 FL (80-99); MEAN PLATELET VOLUME 9.8 FL (7.4-10.4); MONOCYTES # (AUTO) 0.1 X 10^3 (0.0-1.0); MONOCYTES % (AUTO) 1 % (0-12); NEUTROPHILS # (AUTO) 1.6 X 10^3 (1.8-7.8); NEUTROPHILS % (AUTO) 22 % (42-75); PLATELET COUNT 133 10^3/uL (130-400); RED BLOOD COUNT 2.46 10^6/uL (4.35-5.85); RED CELL DISTRIBUTION WIDTH 18.3 % (10.0-14.5); WHITE BLOOD COUNT 7.2 10^3/uL (4.3-11.0)
[2017-12-31 10:52] LABS: BUN/CREATININE RATIO 17; CALCIUM 9.2 MG/DL (8.5-10.1); CARBON DIOXIDE 24 MMOL/L (21-32); CHLORIDE 106 MMOL/L (98-107); GFR ESTIMATED > 60; GLUCOSE 174 MG/DL (70-105); POTASSIUM 4.5 MMOL/L (3.6-5.0); SODIUM 141 MMOL/L (135-145)
[2018-01-06 10:59] LABS: BASOPHILS % (AUTO) 0 % (0-10); EOSINOPHILS # (AUTO) 0.1 10^3/uL (0.0-0.3); EOSINOPHILS % (AUTO) 1 % (0-10); HEMATOCRIT 29 % (40-54); HEMOGLOBIN 9.8 G/DL (13.3-17.7); LYMPHOCYTES # (AUTO) 5.4 X 10^3 (1.0-4.0); LYMPHOCYTES % (AUTO) 73 % (12-44); MEAN CORPUSCULAR HEMOGLOBIN 37 PG (25-34); MEAN CORPUSCULAR HGB CONC 33 G/DL (32-36); MEAN CORPUSCULAR VOLUME 112 FL (80-99); MEAN PLATELET VOLUME 9.7 FL (7.4-10.4); MONOCYTES # (AUTO) 0.1 X 10^3 (0.0-1.0); MONOCYTES % (AUTO) 2 % (0-12); NEUTROPHILS # (AUTO) 1.8 X 10^3 (1.8-7.8); NEUTROPHILS % (AUTO) 25 % (42-75); PLATELET COUNT 117 10^3/uL (130-400); RED BLOOD COUNT 2.62 10^6/uL (4.35-5.85); RED CELL DISTRIBUTION WIDTH 17.8 % (10.0-14.5); WHITE BLOOD COUNT 7.4 10^3/uL (4.3-11.0)
[2018-01-06 11:14] LABS: BUN/CREATININE RATIO 15; CALCIUM 9.1 MG/DL (8.5-10.1); CARBON DIOXIDE 25 MMOL/L (21-32); CHLORIDE 104 MMOL/L (98-107); CREATININE SERUM 0.94 MG/DL (0.60-1.30); GFR ESTIMATED > 60; GLUCOSE 276 MG/DL (70-105); POTASSIUM 4.2 MMOL/L (3.6-5.0); SODIUM 139 MMOL/L (135-145)
[2018-01-13 10:30] LABS: BASOPHILS % (AUTO) 0 % (0-10); EOSINOPHILS # (AUTO) 0.1 10^3/uL (0.0-0.3); EOSINOPHILS % (AUTO) 1 % (0-10); HEMATOCRIT 33 % (40-54); HEMOGLOBIN 11.5 G/DL (13.3-17.7); LYMPHOCYTES # (AUTO) 6.6 X 10^3 (1.0-4.0); LYMPHOCYTES % (AUTO) 74 % (12-44); MEAN CORPUSCULAR HEMOGLOBIN 38 PG (25-34); MEAN CORPUSCULAR HGB CONC 35 G/DL (32-36); MEAN CORPUSCULAR VOLUME 107 FL (80-99); MONOCYTES # (AUTO) 0.3 X 10^3 (0.0-1.0); MONOCYTES % (AUTO) 3 % (0-12); NEUTROPHILS % (AUTO) 22 % (42-75); PLATELET COUNT 125 10^3/uL (130-400); RED BLOOD COUNT 3.03 10^6/uL (4.35-5.85); RED CELL DISTRIBUTION WIDTH 17.1 % (10.0-14.5); WHITE BLOOD COUNT 8.9 10^3/uL (4.3-11.0)
[2018-01-13 10:45] LABS: BUN/CREATININE RATIO 15; CALCIUM 9.5 MG/DL (8.5-10.1); CARBON DIOXIDE 24 MMOL/L (21-32); CHLORIDE 103 MMOL/L (98-107); CREATININE SERUM 1.05 MG/DL (0.60-1.30); GFR ESTIMATED > 60; GLUCOSE 310 MG/DL (70-105); POTASSIUM 3.9 MMOL/L (3.6-5.0); SODIUM 138 MMOL/L (135-145)
[2018-01-21 10:29] LABS: BASOPHILS % (AUTO) 0 % (0-10); EOSINOPHILS # (AUTO) 0.1 10^3/uL (0.0-0.3); EOSINOPHILS % (AUTO) 2 % (0-10); HEMATOCRIT 34 % (40-54); HEMOGLOBIN 11.4 G/DL (13.3-17.7); LYMPHOCYTES # (AUTO) 4.9 X 10^3 (1.0-4.0); LYMPHOCYTES % (AUTO) 68 % (12-44); MEAN CORPUSCULAR HEMOGLOBIN 37 PG (25-34); MEAN CORPUSCULAR HGB CONC 34 G/DL (32-36); MEAN CORPUSCULAR VOLUME 108 FL (80-99); MEAN PLATELET VOLUME 8.5 FL (7.4-10.4); MONOCYTES # (AUTO) 0.3 X 10^3 (0.0-1.0); MONOCYTES % (AUTO) 4 % (0-12); NEUTROPHILS # (AUTO) 1.9 X 10^3 (1.8-7.8); NEUTROPHILS % (AUTO) 26 % (42-75); PLATELET COUNT 104 10^3/uL (130-400); RED BLOOD COUNT 3.11 10^6/uL (4.35-5.85); RED CELL DISTRIBUTION WIDTH 15.7 % (10.0-14.5); WHITE BLOOD COUNT 7.3 10^3/uL (4.3-11.0)
[2018-01-21 10:50] LABS: ALANINE AMINOTRANSFERASE 15 U/L (0-55); ALBUMIN 4.2 GM/DL (3.2-4.5); ALKALINE PHOSPHATASE 64 U/L (40-136); BILIRUBIN,TOTAL 0.6 MG/DL (0.1-1.0); BUN/CREATININE RATIO 16; CALCIUM 9.4 MG/DL (8.5-10.1); CARBON DIOXIDE 26 MMOL/L (21-32); CHLORIDE 103 MMOL/L (98-107); CREATININE SERUM 1.05 MG/DL (0.60-1.30); GFR ESTIMATED > 60; GLUCOSE 303 MG/DL (70-105); POTASSIUM 4.3 MMOL/L (3.6-5.0); SODIUM 139 MMOL/L (135-145); TOTAL PROTEIN 6.6 GM/DL (6.4-8.2)
[~2018-02-18] VITALS: Ht 171.4 cm; Wt 88.5 kg
[~2018-02-18 09:28] MED LIST changes: +ACETAMINOPHEN 325 MG TAB (TYLENOL) CANCER CTR ONE; +ACETAMINOPHEN 325 MG TAB (TYLENOL) CANCER CTR PO PRN; +ACETAMINOPHEN 500 MG TAB (TYLENOL) CANCER CTR ONE; +BENDAMUSTINE HCL 140 MG in NS (IVPB) CANCER CENTER 50 ML IV SCH; -CATHETER FLUSH 10 ML SYR IV PRN; -IOHEXOL 350 MG/ML 100 ML (OMNIPAQUE 350) VIAL IV ONE; +MEPERIDINE (DEMEROL) INJ 50 MG/ML CANCER CTR IV PRN; -NS 250 ML (IVPB) BAG IV ONE; +NS IV 1000 ML (CANCER CTR) IV SCH; +ONDANSETRON MDV (CANCER CENTER 8 MG, DEXAMETHASONE INJ (CANCER CTR) 4 MG in NS (IVPB) C... IV SCH; +RITUXIMAB FOR IV SCH; +RITUXIMAB IV SCH; +[UNRECOGNIZED DRUG - OTHER] IV SCH; +diphenhydrAMINE 25 MG TAB (BENADRYL) CANCER CENTER PO SCH; +diphenhydrAMINE 50 MG/ML INJ (CANCER CENTER) IV ONE; +diphenhydrAMINE 50 MG/ML INJ (CANCER CENTER) ONE
[2018-02-18 10:06] LABS: BASOPHILS % (AUTO) 0 % (0-10); EOSINOPHILS # (AUTO) 0.1 10^3/uL (0.0-0.3); EOSINOPHILS % (AUTO) 2 % (0-10); HEMATOCRIT 38 % (40-54); LYMPHOCYTES # (AUTO) 4.5 X 10^3 (1.0-4.0); LYMPHOCYTES % (AUTO) 71 % (12-44); MEAN CORPUSCULAR HEMOGLOBIN 36 PG (25-34); MEAN CORPUSCULAR HGB CONC 35 G/DL (32-36); MEAN CORPUSCULAR VOLUME 104 FL (80-99); MEAN PLATELET VOLUME 10.1 FL (7.4-10.4); MONOCYTES # (AUTO) 0.4 X 10^3 (0.0-1.0); MONOCYTES % (AUTO) 7 % (0-12); NEUTROPHILS # (AUTO) 1.2 X 10^3 (1.8-7.8); NEUTROPHILS % (AUTO) 20 % (42-75); PLATELET COUNT 104 10^3/uL (130-400); RED BLOOD COUNT 3.62 10^6/uL (4.35-5.85); RED CELL DISTRIBUTION WIDTH 14.6 % (10.0-14.5); WHITE BLOOD COUNT 6.3 10^3/uL (4.3-11.0)
[2018-02-18 10:27] LABS: ALANINE AMINOTRANSFERASE 21 U/L (0-55); ALBUMIN 4.5 GM/DL (3.2-4.5); ALKALINE PHOSPHATASE 56 U/L (40-136); BILIRUBIN,TOTAL 0.6 MG/DL (0.1-1.0); BUN/CREATININE RATIO 15; CALCIUM 10.2 MG/DL (8.5-10.1); CARBON DIOXIDE 30 MMOL/L (21-32); CHLORIDE 103 MMOL/L (98-107); CREATININE SERUM 1.01 MG/DL (0.60-1.30); GFR ESTIMATED > 60; GLUCOSE 166 MG/DL (70-105); POTASSIUM 4.3 MMOL/L (3.6-5.0); SODIUM 140 MMOL/L (135-145); TOTAL PROTEIN 7.1 GM/DL (6.4-8.2)
== END 2018-02-24 | disposition home or self-care (01) ==
LOC: ONC 09:28
PROVIDERS: ATTEND Internal Medicine Hematology & Oncology
DX: Z51.11 Encounter for antineoplastic chemotherapy (principal); C91.10 Chronic lymphocytic leukemia of B-cell type not having achieved remission; C44.310 Basal cell carcinoma of skin of unspecified parts of face; Z85.21 Personal history of malignant neoplasm of larynx; N18.3 Chronic kidney disease, stage 3 (moderate); I12.9 Hypertensive chronic kidney disease with stage 1 through stage 4 chronic kidney disease, or unspecified chronic kidney disease; E11.22 Type 2 diabetes mellitus with diabetic chronic kidney disease; I25.10 Atherosclerotic heart disease of native coronary artery without angina pectoris; E78.00 Pure hypercholesterolemia, unspecified; Z92.3 Personal history of irradiation; Z79.82 Long term (current) use of aspirin; Z79.899 Other long term (current) drug therapy
CPT/HCPCS: 36415; 80048; 80053; 83615; 84550; 85025; 96413; 96415; 99213

== ENCOUNTER → 2018-02-18 | Outpatient (CLI) | payer MEDICARE, OTHER ==
[~2018-02-18] MED LIST changes: +CATHETER FLUSH 10 ML SYR IV PRN; +IOHEXOL 350 MG/ML 100 ML (OMNIPAQUE 350) VIAL IV ONE; +NS 250 ML (IVPB) BAG IV ONE
--- NOTE | 2018-02-18 13:07 | Diagnostic Imaging Report ---
PROCEDURE: CT neck soft tissue with contrast. TECHNIQUE: Multiple contiguous axial images were obtained through the neck after the administration of contrast. INDICATION: Chronic lymphocytic leukemia and neck nodule. Correlation is made with head CT performed 04/29/2017. The visualized intracranial structures are unremarkable. The posterior nasopharynx, oropharynx and larynx are unremarkable. No thyroid masses are seen. There are multiple hypodense nodules within both parotid glands, largest involving the left parotid gland inferiorly measuring 2.0 x 1.4 cm compared with approximately 1.8 x 1.4 cm. Submandibular glands are small. No cervical lymphadenopathy is seen. Imaging through the upper chest does demonstrate apparent decrease in size of upper mediastinal lymph nodes particularly in the prevascular space and right paratracheal region. IMPRESSION: 1. Stable CT of the neck and stable bilateral thyroid nodules when compared with the CT study from 04/29/2017. There may be some improvement in upper mediastinal lymphadenopathy since prior PET/CT as well. Dictated by: Dictated on workstation # [id number]
== END ==
LOC: RAD 11:45
PROVIDERS: ATTEND Internal Medicine Hematology & Oncology
DX: C91.10 Chronic lymphocytic leukemia of B-cell type not having achieved remission (principal); E04.1 Nontoxic single thyroid nodule
CPT/HCPCS: 70491

== ENCOUNTER 2018-05-13 12:57 | Outpatient (RCR) | payer MEDICARE, OTHER ==
[2018-03-18 14:03] LABS: BASOPHILS % (AUTO) 0 % (0-10); EOSINOPHILS # (AUTO) 0.1 10^3/uL (0.0-0.3); EOSINOPHILS % (AUTO) 2 % (0-10); HEMATOCRIT 39 % (40-54); HEMOGLOBIN 13.5 G/DL (13.3-17.7); LYMPHOCYTES # (AUTO) 5.4 X 10^3 (1.0-4.0); LYMPHOCYTES % (AUTO) 59 % (12-44); MEAN CORPUSCULAR HEMOGLOBIN 35 PG (25-34); MEAN CORPUSCULAR HGB CONC 35 G/DL (32-36); MEAN CORPUSCULAR VOLUME 99 FL (80-99); MEAN PLATELET VOLUME 9.7 FL (7.4-10.4); MONOCYTES # (AUTO) 0.6 X 10^3 (0.0-1.0); MONOCYTES % (AUTO) 6 % (0-12); NEUTROPHILS % (AUTO) 33 % (42-75); PLATELET COUNT 126 10^3/uL (130-400); RED BLOOD COUNT 3.89 10^6/uL (4.35-5.85); RED CELL DISTRIBUTION WIDTH 14.3 % (10.0-14.5); WHITE BLOOD COUNT 9.1 10^3/uL (4.3-11.0)
[2018-03-18 14:20] LABS: ALANINE AMINOTRANSFERASE 21 U/L (0-55); ALBUMIN 4.4 GM/DL (3.2-4.5); ALKALINE PHOSPHATASE 74 U/L (40-136); BILIRUBIN,TOTAL 0.5 MG/DL (0.1-1.0); BUN/CREATININE RATIO 20; CALCIUM 10.1 MG/DL (8.5-10.1); CARBON DIOXIDE 28 MMOL/L (21-32); CHLORIDE 100 MMOL/L (98-107); CREATININE SERUM 1.08 MG/DL (0.60-1.30); GFR ESTIMATED > 60; GLUCOSE 297 MG/DL (70-105); POTASSIUM 4.4 MMOL/L (3.6-5.0); SODIUM 136 MMOL/L (135-145); TOTAL PROTEIN 7.1 GM/DL (6.4-8.2)
[~2018-05-13 12:57] MED LIST changes: -ACETAMINOPHEN 325 MG TAB (TYLENOL) CANCER CTR ONE; -ACETAMINOPHEN 325 MG TAB (TYLENOL) CANCER CTR PO PRN; -ACETAMINOPHEN 500 MG TAB (TYLENOL) CANCER CTR ONE; -BENDAMUSTINE HCL 140 MG in NS (IVPB) CANCER CENTER 50 ML IV SCH; -MEPERIDINE (DEMEROL) INJ 50 MG/ML CANCER CTR IV PRN; -NS IV 1000 ML (CANCER CTR) IV SCH; -ONDANSETRON MDV (CANCER CENTER 8 MG, DEXAMETHASONE INJ (CANCER CTR) 4 MG in NS (IVPB) C... IV SCH; -RITUXIMAB FOR IV SCH; -RITUXIMAB IV SCH; -[UNRECOGNIZED DRUG - OTHER] IV SCH; -diphenhydrAMINE 25 MG TAB (BENADRYL) CANCER CENTER PO SCH; -diphenhydrAMINE 50 MG/ML INJ (CANCER CENTER) IV ONE; -diphenhydrAMINE 50 MG/ML INJ (CANCER CENTER) ONE
[2018-05-13 13:18] LABS: BASOPHILS % (AUTO) 0 % (0-10); EOSINOPHILS # (AUTO) 0.1 10^3/uL (0.0-0.3); EOSINOPHILS % (AUTO) 1 % (0-10); HEMATOCRIT 35 % (40-54); HEMOGLOBIN 12.4 G/DL (13.3-17.7); LYMPHOCYTES # (AUTO) 6.9 X 10^3 (1.0-4.0); LYMPHOCYTES % (AUTO) 65 % (12-44); MEAN CORPUSCULAR HEMOGLOBIN 36 PG (25-34); MEAN CORPUSCULAR HGB CONC 36 G/DL (32-36); MEAN CORPUSCULAR VOLUME 100 FL (80-99); MEAN PLATELET VOLUME 9.3 FL (7.4-10.4); MONOCYTES # (AUTO) 0.6 X 10^3 (0.0-1.0); MONOCYTES % (AUTO) 5 % (0-12); NEUTROPHILS % (AUTO) 28 % (42-75); PLATELET COUNT 122 10^3/uL (130-400); RED BLOOD COUNT 3.48 10^6/uL (4.35-5.85); WHITE BLOOD COUNT 10.5 10^3/uL (4.3-11.0)
[2018-05-13 13:31] LABS: ALANINE AMINOTRANSFERASE 20 U/L (0-55); ALBUMIN 4.3 GM/DL (3.2-4.5); ALKALINE PHOSPHATASE 66 U/L (40-136); BILIRUBIN,TOTAL 0.7 MG/DL (0.1-1.0); BUN/CREATININE RATIO 14; CARBON DIOXIDE 24 MMOL/L (21-32); CHLORIDE 106 MMOL/L (98-107); CREATININE SERUM 1.07 MG/DL (0.60-1.30); GFR ESTIMATED > 60; GLUCOSE 167 MG/DL (70-105); POTASSIUM 4.4 MMOL/L (3.6-5.0); SODIUM 141 MMOL/L (135-145); TOTAL PROTEIN 6.8 GM/DL (6.4-8.2)
== END 2018-06-16 | disposition home or self-care (01) ==
LOC: ONC 12:57
PROVIDERS: ATTEND Internal Medicine Hematology & Oncology
DX: C91.10 Chronic lymphocytic leukemia of B-cell type not having achieved remission (principal); C44.310 Basal cell carcinoma of skin of unspecified parts of face; Z85.21 Personal history of malignant neoplasm of larynx; N18.3 Chronic kidney disease, stage 3 (moderate); I12.9 Hypertensive chronic kidney disease with stage 1 through stage 4 chronic kidney disease, or unspecified chronic kidney disease; E11.22 Type 2 diabetes mellitus with diabetic chronic kidney disease; I25.10 Atherosclerotic heart disease of native coronary artery without angina pectoris; E78.00 Pure hypercholesterolemia, unspecified; Z92.3 Personal history of irradiation; Z79.82 Long term (current) use of aspirin; Z79.899 Other long term (current) drug therapy
CPT/HCPCS: 36415; 80053; 83615; 85025; 99213; 99214

== ENCOUNTER 2018-08-13 09:34 | Outpatient (RCR) | payer MEDICARE, OTHER ==
[2018-06-17 13:40] LABS: BASOPHILS % (AUTO) 0 % (0-10); EOSINOPHILS # (AUTO) 0.3 10^3/uL (0.0-0.3); EOSINOPHILS % (AUTO) 2 % (0-10); HEMATOCRIT 38 % (40-54); HEMOGLOBIN 12.9 G/DL (13.3-17.7); LYMPHOCYTES # (AUTO) 11.1 X 10^3 (1.0-4.0); LYMPHOCYTES % (AUTO) 70 % (12-44); MEAN CORPUSCULAR HEMOGLOBIN 34 PG (25-34); MEAN CORPUSCULAR HGB CONC 34 G/DL (32-36); MEAN CORPUSCULAR VOLUME 102 FL (80-99); MEAN PLATELET VOLUME 8.8 FL (7.4-10.4); MONOCYTES # (AUTO) 0.6 X 10^3 (0.0-1.0); MONOCYTES % (AUTO) 4 % (0-12); NEUTROPHILS # (AUTO) 3.9 X 10^3 (1.8-7.8); NEUTROPHILS % (AUTO) 25 % (42-75); PLATELET COUNT 162 10^3/uL (130-400); RED BLOOD COUNT 3.74 10^6/uL (4.35-5.85); RED CELL DISTRIBUTION WIDTH 15.5 % (10.0-14.5); WHITE BLOOD COUNT 15.9 10^3/uL (4.3-11.0)
[2018-06-17 14:01] LABS: BUN/CREATININE RATIO 19; CARBON DIOXIDE 26 MMOL/L (21-32); CHLORIDE 106 MMOL/L (98-107); CREATININE SERUM 1.05 MG/DL (0.60-1.30); POTASSIUM 4.7 MMOL/L (3.6-5.0); SODIUM 141 MMOL/L (135-145)
[2018-06-17 14:02] LABS: ALANINE AMINOTRANSFERASE 12 U/L (0-55); ALBUMIN 4.4 GM/DL (3.2-4.5); ALKALINE PHOSPHATASE 87 U/L (40-136); BILIRUBIN,TOTAL 0.6 MG/DL (0.1-1.0); CALCIUM 10.4 MG/DL (8.5-10.1); GFR ESTIMATED > 60; GLUCOSE 130 MG/DL (70-105)
[2018-07-15 13:14] LABS: BASOPHILS # (AUTO) 0.1 10^3/uL (0.0-0.1); BASOPHILS % (AUTO) 0 % (0-10); EOSINOPHILS # (AUTO) 0.1 10^3/uL (0.0-0.3); EOSINOPHILS % (AUTO) 1 % (0-10); HEMATOCRIT 37 % (40-54); HEMOGLOBIN 13.8 G/DL (13.3-17.7); LYMPHOCYTES # (AUTO) 11.9 X 10^3 (1.0-4.0); LYMPHOCYTES % (AUTO) 74 % (12-44); MEAN CORPUSCULAR HEMOGLOBIN 37 PG (25-34); MEAN CORPUSCULAR HGB CONC 37 G/DL (32-36); MEAN CORPUSCULAR VOLUME 100 FL (80-99); MEAN PLATELET VOLUME 9.6 FL (7.4-10.4); MONOCYTES # (AUTO) 0.4 X 10^3 (0.0-1.0); MONOCYTES % (AUTO) 2 % (0-12); NEUTROPHILS # (AUTO) 3.7 X 10^3 (1.8-7.8); NEUTROPHILS % (AUTO) 23 % (42-75); PLATELET COUNT 119 10^3/uL (130-400); RED BLOOD COUNT 3.74 10^6/uL (4.35-5.85); RED CELL DISTRIBUTION WIDTH 14.8 % (10.0-14.5); WHITE BLOOD COUNT 16.2 10^3/uL (4.3-11.0)
[2018-07-15 13:31] LABS: ALANINE AMINOTRANSFERASE 22 U/L (0-55); ALBUMIN 4.7 GM/DL (3.2-4.5); ALKALINE PHOSPHATASE 90 U/L (40-136); BILIRUBIN,TOTAL 0.7 MG/DL (0.1-1.0); BUN/CREATININE RATIO 15; CALCIUM 10.4 MG/DL (8.5-10.1); CARBON DIOXIDE 27 MMOL/L (21-32); CHLORIDE 103 MMOL/L (98-107); CREATININE SERUM 1.12 MG/DL (0.60-1.30); GFR ESTIMATED > 60; GLUCOSE 154 MG/DL (70-105); POTASSIUM 4.1 MMOL/L (3.6-5.0); SODIUM 139 MMOL/L (135-145); TOTAL PROTEIN 7.6 GM/DL (6.4-8.2)
[2018-08-13 09:51] LABS: BASOPHILS % (AUTO) 0 % (0-10); EOSINOPHILS # (AUTO) 0.2 10^3/uL (0.0-0.3); EOSINOPHILS % (AUTO) 1 % (0-10); HEMATOCRIT 36 % (40-54); HEMOGLOBIN 13.1 G/DL (13.3-17.7); LYMPHOCYTES # (AUTO) 10.1 X 10^3 (1.0-4.0); LYMPHOCYTES % (AUTO) 75 % (12-44); MEAN CORPUSCULAR HEMOGLOBIN 36 PG (25-34); MEAN CORPUSCULAR HGB CONC 36 G/DL (32-36); MEAN CORPUSCULAR VOLUME 101 FL (80-99); MEAN PLATELET VOLUME 9.5 FL (7.4-10.4); MONOCYTES # (AUTO) 0.5 X 10^3 (0.0-1.0); MONOCYTES % (AUTO) 4 % (0-12); NEUTROPHILS # (AUTO) 2.8 X 10^3 (1.8-7.8); NEUTROPHILS % (AUTO) 21 % (42-75); PLATELET COUNT 117 10^3/uL (130-400); RED BLOOD COUNT 3.61 10^6/uL (4.35-5.85); RED CELL DISTRIBUTION WIDTH 14.5 % (10.0-14.5); WHITE BLOOD COUNT 13.5 10^3/uL (4.3-11.0)
[2018-08-13 10:17] LABS: ALANINE AMINOTRANSFERASE 17 U/L (0-55); ALBUMIN 4.2 GM/DL (3.2-4.5); ALKALINE PHOSPHATASE 74 U/L (40-136); BILIRUBIN,TOTAL 0.6 MG/DL (0.1-1.0); BUN/CREATININE RATIO 15; CALCIUM 9.6 MG/DL (8.5-10.1); CARBON DIOXIDE 24 MMOL/L (21-32); CHLORIDE 104 MMOL/L (98-107); CREATININE SERUM 1.13 MG/DL (0.60-1.30); GFR ESTIMATED > 60; GLUCOSE 276 MG/DL (70-105); POTASSIUM 4.3 MMOL/L (3.6-5.0); SODIUM 138 MMOL/L (135-145); TOTAL PROTEIN 6.6 GM/DL (6.4-8.2)
== END 2018-09-15 14:37 | disposition home or self-care (01) ==
LOC: ONC 09:34
PROVIDERS: ATTEND Internal Medicine Hematology & Oncology
DX: Z51.0 Encounter for antineoplastic radiation therapy (principal); C44.310 Basal cell carcinoma of skin of unspecified parts of face; C91.10 Chronic lymphocytic leukemia of B-cell type not having achieved remission; Z85.21 Personal history of malignant neoplasm of larynx; N18.3 Chronic kidney disease, stage 3 (moderate); I12.9 Hypertensive chronic kidney disease with stage 1 through stage 4 chronic kidney disease, or unspecified chronic kidney disease; E11.22 Type 2 diabetes mellitus with diabetic chronic kidney disease; I25.10 Atherosclerotic heart disease of native coronary artery without angina pectoris; E78.00 Pure hypercholesterolemia, unspecified; Z92.3 Personal history of irradiation; Z79.82 Long term (current) use of aspirin; Z79.899 Other long term (current) drug therapy
CPT/HCPCS: 36415; 77290; 77300; 77332; 77334; 77336; 77470; 80053; 83615; 85025; 99213; 99214

== ENCOUNTER 2018-11-18 11:46 | Outpatient (CLI) | payer MEDICARE, OTHER ==
[~2018-11-18] VITALS: Ht 175.3 cm; Wt 83.5 kg
[~2018-11-18 11:46] MED LIST changes: -ASPI-586 PO; -CARV12.53 PO; -CATHETER FLUSH 10 ML SYR IV PRN; -FURO20TA4 PO; -GLIM4TAB PO; -HYDR-3812 PO; -IOHEXOL 350 MG/ML 100 ML (OMNIPAQUE 350) VIAL IV ONE; -NS 100 ML (IVPB) BAG IV ONE; -OMEP20TA33 PO; -RECEIVED CONTRAST (Hold Metformin) IV SCH
[2018-11-18] MEDS ORDERED: CARV12.53 PO (13:01)
[2018-11-18] MEDS ORDERED: ASPI-586 PO (13:01)
[2018-11-18] MEDS ORDERED: GLIM4TAB PO (13:01)
[2018-11-18] MEDS ORDERED: FURO20TA4 PO (13:01)
[2018-11-18] MEDS ORDERED: HYDR-3812 PO (13:02)
[2018-11-19] MEDS ORDERED: OMEP20TA33 PO (10:04)
== END 2018-11-18 13:39 | disposition home or self-care (01) ==
LOC: PREOP 11:46
PROVIDERS: ATTEND Surgery
DX: Z01.818 Encounter for other preprocedural examination (principal)

== ENCOUNTER → 2018-11-18 | Outpatient (CLI) | payer MEDICARE, OTHER ==
[~2018-11-18] MED LIST changes: +ASPI-586 PO; +CARV12.53 PO; +CATHETER FLUSH 10 ML SYR IV PRN; +FURO20TA4 PO; +GLIM4TAB PO; +HYDR-3812 PO; +IOHEXOL 350 MG/ML 100 ML (OMNIPAQUE 350) VIAL IV ONE; +NS 100 ML (IVPB) BAG IV ONE; +OMEP20TA33 PO; +RECEIVED CONTRAST (Hold Metformin) IV SCH
--- NOTE | 2018-11-18 10:55 | Diagnostic Imaging Report ---
INDICATION: Squamous cell carcinoma and throat swelling. TECHNIQUE: Axial imaging through the neck and chest was performed after the administration of intravenous contrast. COMPARISON: Comparison is made with prior CT soft tissue neck study from 02/18/2018. CT NECK: The visualized intracranial structures are unremarkable. Posterior nasopharynx and oropharynx are unremarkable. Epiglottis and larynx are unremarkable. No thyroid mass is seen. There has been development of significant skin thickening over the left lateral face and upper neck at the level of the mandible. There has been development of irregular masses just below the skin in the left face in the region of the parotid gland with some central low density perhaps owing to some necrosis. This mass measured approximately 4.0 x 3.0 cm. There are some areas of nodularity just below the thickened skin surface as well slightly more anteriorly measuring 7-12 mm in size. Posterior cervical space on the left is unremarkable. There appear to be multiple masses present in the region of the right parotid gland, increased since prior CT. The larger more posterior mass measures 2.6 cm compared with 1.5 cm. More inferiorly, there is more ill-defined masslike density inferior to the right parotid gland and lateral to the great vessels. This infiltrative masslike density measures approximately 4.4 x 2.5 cm. This is superficial to the sternocleidomastoid musculature. Posterior cervical space on the right is unremarkable. A right occipital lymph node in the subcutaneous fat has increased in size measuring 11 mm compared with 6 mm on prior. There are enlarged supraclavicular nodes bilaterally but greatest on the right. Conglomerate of nodes on the right measure 2.6 x 1.5 cm. IMPRESSION: Adverse appearance to the soft tissues of the neck when compared with exam from 02/18/2018. Significant increase in bilateral neck masses and adenopathy as well as bilateral supraclavicular lymphadenopathy is noted. There has been development of significant skin thickening in the left neck and face and subcutaneous nodularity since prior exam. Features are consistent with either neoplastic or lymphomatous process. CT CHEST: Correlation is made with the chest portion from a PET/CT from 04/29/2017. 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 Significant bilateral axillary lymphadenopathy is again noted. There is also bulky mediastinal lymphadenopathy, perhaps similar to prior PET/CT. No pericardial or pleural fluid is identified. Tiny subpleural nodules bilateral lower lobes and right middle lobe are noted. Upper abdomen demonstrates bulky retroperitoneal and portacaval lymphadenopathy. IMPRESSION: Axillary and mediastinal as well as upper abdominal lymphadenopathy. This appears similar to perhaps slightly increased when compared with PET/CT from 04/29/2017. Dictated by: Dictated on workstation # [id number]
== END ==
LOC: RAD 07:47
PROVIDERS: ATTEND Internal Medicine Hematology & Oncology
DX: C44.92 Squamous cell carcinoma of skin, unspecified (principal); R59.0 Localized enlarged lymph nodes
CPT/HCPCS: 70491; 71260

== ENCOUNTER 2018-11-19 07:36 | Day surgery (SDC) | payer MEDICARE, OTHER ==
[~2018-11-19] VITALS: Ht 175.3 cm; Wt 83.5 kg
[~2018-11-19 07:36] MED LIST changes: +ASPI-586 PO; +CARV12.53 PO; +FURO20TA4 PO; +GLIM4TAB PO; +HYDR-3812 PO
--- OUTSIDE RECORDS SUMMARY | 2018-11-19 07:45 | XMS REPORT | Continuity of Care Document ---
Author Author [facility] Organization [facility] Address Unknown Phone Unavailable Allergies Active Description Code Type Severity Reaction Onset Reported/Identified Relationship to Patient Clinical Status Yes NO KNOWN DRUG ALLERGIES NO KNOWN DRUG ALLERG UNKNOWN Yes CEFEPIME MODERATE DERMATOLOGICAL - SHELIA Yes NO KNOWN DRUG ALLERGIES UNKNOWN NO KNOWN DRUG ALLERG Yes SULFAMETHOXAZOLE-TRIMETHOPRIM SEVERE ANAPHYLACTIC SHOCK Yes No Known Drug Allergies [id number] Drug Allergy Unknown N/A 03/28/2011 Yes Sulfa (Sulfonamide Antibiotics) [id number] Drug Allergy Unknown N/A 2016 Medications Medication Packaging Start Date Stop Date Route Dosage Sig NORMAL SALINE 1000CC IV BAG INJ 0.9 % (NS 1000CC IV BAG) ml 11/02/2016 11/02/2016 ONCE&1437 ACETAMINOPHEN ORAL TABLET 325mg(Tylenol) MG 11/04/2016 11/11/2016 PRN EVERY 6 Hour 0.45% SALINE 1000CC BAG INJ 0.45 % (HALF NORMAL SALINE 1000CC) ML 11/04/2016 11/11/2016 CONTINUOUSEVERY 0 Hour CEFTRIAXONE PREMIX IV BAG IV 1 GM/50CC (ROCEPHIN PREMIX IV BAG) GM 11/04/2016 11/04/2016 ONCE&0044 SMZ/TMP DS TAB (SEPTRA DS) (Bactrim DS) Dose( s) 11/04/2016 11/10/2016 BID&0800,2000 GLYBURIDE TAB 2.5 MG (MICRONASE) MG 11/04/2016 11/10/2016 BID&0800,2000 FISH OIL CAP CAP 1000 MG (OMEGA 3) MG 11/04/2016 11/10/2016 TID&0800,1400,2000 NORMAL SALINE 1000CC IV BAG INJ 0.9 % (NS 1000CC IV BAG) ml 11/04/2016 11/19/2016 CONTINUOUSEVERY 0 Hour MAGNESIUM OXIDE TAB 400 MG (MAG-OX) MG 11/04/2016 11/10/2016 Daily&0900 CARVEDILOL TAB 6.25 MG (COREG) MG 11/04/2016 11/10/2016 Daily&0900 ASA 81MG ENTERIC COATED TAB 81 MG (BABY ASPIRIN EC) MG 11/04/2016 11/17/2016 Daily&0900 VITAMIN D-3 TAB 1000 UNITS (VITAMIN D-3) UNITS 11/04/2016 11/10/2016 Daily&0900 ZINC TAB 50 MG (ZINC) MG 201511/10/2016 Daily&0900 CALCIUM 500MG TAB 500 MG (OSCAL) MG 11/04/2016 11/10/2016 Daily&0900 CEFTRIAXONE PREMIX IV BAG IV 1 GM/50CC (ROCEPHIN PREMIX IV BAG) GM 11/04/2016 11/10/2016 Daily&0900 INSULIN ASPART PEN INJ 100 UNITS/CC (NOVOLOG FLEXPEN) 11/04/2016 12/03/2016 Daily&0900 INSULIN ASPART PEN INJ 100 UNITS/CC (NOVOLOG FLEXPEN) 11/04/2016 11/19/2016 ACHS&0630,1130,1630,2100 LEVALBUTEROL CONCENTRATE SOLN 1.25 MG/0.5CC (XOPENEX CONCENTRATE) MG 11/04/2016 11/14/2016 PRN QID FUROSEMIDE TAB 20 MG (LASIX) MG 10/201611/04/2016 ONCE&1407 LEVALBUTEROL LIQ 1.25 MG/3ML (XOPENEX) MG 11/04/2016 11/11/2016 PRN QID SIMVASTATIN TAB 40 MG (ZOCOR) MG 11/10/2016 QPM&2000 CEFTRIAXONE PREMIX IV BAG IV 1 GM/50CC (ROCEPHIN PREMIX IV BAG) GM 11/05/2016 11/05/2016 ONCE&0858 GLIMEPIRIDE TAB 2 MG (AMARYL) MG 11/12/2016 BID&0700,1700,1900 CEFTRIAXONE PREMIX IV BAG IV 1 GM/50CC (ROCEPHIN PREMIX IV BAG) GM 11/06/2016 11/06/2016 ONCE&0930 CEFTRIAXONE PREMIX IV BAG IV 1 GM/50CC (ROCEPHIN PREMIX IV BAG) GM 11/07/2016 11/07/2016 ONCE&0815 CEFTRIAXONE INJ 1 GM (ROCEPHIN) GM 11/25/2016 11/25/2016 ONCE&1751 AMOX-CLAV 875/125 TAB 875 MG-125MG (AUGMENTIN) TAB 12/14/2016 12/14/2016 ONCE&1540 FUROSEMIDE VIAL INJ 40 MG (LASIX VIAL) MG 09/21/2017 09/21/2017 ONCE&2247 INSULIN ASPART PEN INJ 100 UNITS/CC (NOVOLOG FLEXPEN) 09/22/2017 10/21/2017 BID&0600,1800 INSULIN ASPART PEN INJ 100 UNITS/CC (NOVOLOG FLEXPEN) 09/22/2017 10/21/2017 ACHS&0630,1130,1630,2100 CARVEDILOL TAB 6.25 MG (COREG) MG 09/22/2017 10/21/2017 BID&0800,2000 GLIMEPIRIDE TAB 2 MG (AMARYL) MG 10/21/2017 BID&0800,2000 POTASSIUM CHLORIDE TAB 20 MEQ (K-DUR) MEQ 09/22/2017 09/28/2017 Daily&0900 ALLOPURINOL TAB 300 MG (ZYLOPRIM) MG 09/22/2017 09/28/2017 Daily&0900 FUROSEMIDE VIAL INJ 100 MG (LASIX VIAL) MG 09/22/2017 09/28/2017 Daily&0900 FUROSEMIDE VIAL INJ 40 MG (LASIX VIAL) MG 09/22/2017 09/28/2017 Daily&1200 CEFTRIAXONE PREMIX IV BAG IV 1 GM/50CC (ROCEPHIN PREMIX IV BAG) GM 09/22/2017 09/28/2017 Daily&2000 PANTOPAZOLE VIAL INJ 40 MG (PROTONIX IV) MG 09/22/2017 10/01/2017 Daily&0900 ACETAMINOPHEN ORAL TABLET 325mg(Tylenol) MG 09/22/2017 10/02/2017 PRN Q6H POTASSIUM CHLORIDE TAB 20 MEQ (K-DUR) MEQ 09/23/2017 09/23/2017 TID&1200,1800 VITAMIN D-3 TAB 1000 UNITS (VITAMIN D-3) UNITS 09/23/2017 09/29/2017 Daily&0900 FISH OIL CAP CAP 1000 MG (OMEGA 3) MG 09/23/2017 09/29/2017 Daily&0900 LEVALBUTEROL LIQ 1.25 MG/3ML (XOPENEX) MG 09/23/2017 09/23/2017 ONCE&1245 CEFEPIME PREMIX BAG IV 1 GM/50CC (MAXIPIME PREMIX BAG) GM 09/23/2017 09/30/2017 BID&0200,1400 LEVALBUTEROL LIQ 1.25 MG/3ML (XOPENEX) MG 09/23/2017 09/30/2017 PRN QID NORMAL SALINE 250CC IV BAG INJ 0.9 % (NS 250CC IV BAG) ml 09/23/2017 09/27/2017 Daily&1600 WARFARIN TAB 2 MG (COUMADIN) MG 09/23/2017 ONCE&1800 LACTULOSE SYRUP LIQ 20 GM/30CC (CHRONULAC SYRUP) GM 09/24/2017 10/03/2017 BID&0800,2000 WARFARIN TAB 2 MG (COUMADIN) MG 11/201609/24/2017 ONCE&1800 LEVOFLOXACIN PREMIX IV BAG INJ 500 MG/100CC (LEVAQUIN IV PREMIX 100CC BAG) MG 09/25/2017 10/01/2017 Daily&0900 [place]-0.9% sodium chloride IV piggyback 1 Gm GM 09/25/2017 10/05/2017 Q12H&0000,1200 INSULIN ASPART PEN INJ 100 UNITS/CC (NOVOLOG FLEXPEN) UNITS 09/25/2017 09/25/2017 ONCE&1200 NORMAL SALINE 250CC IV BAG INJ 0.9 % (NS 250CC IV BAG) ml 09/25/2017 10/01/2017 Daily&1600 FUROSEMIDE TAB 40 MG (LASIX) MG 01/201709/26/2017 ONCE&1043 CALMOSEPTINE OINT TUBE (RISAMINE OINT) rené 09/26/2017 10/03/2017 PRN QID LEVALBUTEROL LIQ 1.25 MG/3ML (XOPENEX) MG 09/26/2017 09/29/2017 QID&0600,1100,1600,2100 LEVALBUTEROL LIQ 1.25 MG/3ML (XOPENEX) MG 09/27/2017 10/07/2017 PRN QID CALMOSEPTINE OINT TUBE (RISAMINE OINT) rené 09/27/2017 10/07/2017 PRN QID ACETAMINOPHEN ORAL TABLET 325mg(Tylenol) MG 09/27/2017 10/07/2017 PRN Q6H SALINE NASAL MIST LIQ (OCEAN SPRAY) SPRAYS 09/27/2017 10/07/2017 PRN Q4H NORMAL SALINE 250CC IV BAG INJ 0.9 % (NS 250CC IV BAG) ml 09/27/2017 10/01/2017 Daily&1600 [place]-0.9% sodium chloride IV piggyback 1 Gm GM 09/27/2017 10/04/2017 Q12H&0600,1800 INSULIN ASPART PEN INJ 100 UNITS/CC (NOVOLOG FLEXPEN) 09/27/2017 10/07/2017 Q12H - 06:00,18:00&0600,1800 CARVEDILOL TAB 6.25 MG (COREG) MG 09/27/2017 10/04/2017 BID&0800,2000 GLIMEPIRIDE TAB 2 MG (AMARYL) MG 10/07/2017 BID&0800,2000 LACTULOSE SYRUP LIQ 20 GM/30CC (CHRONULAC SYRUP) GM 09/27/2017 10/04/2017 PRN BID [place]-0.9% sodium chloride IV piggyback 1 Gm GM 09/27/2017 10/04/2017 Q12H&1159,2359 POTASSIUM CHLORIDE TAB 20 MEQ (K-DUR) MEQ 09/28/2017 10/07/2017 Daily&0900 ALLOPURINOL TAB 300 MG (ZYLOPRIM) MG 09/28/2017 10/07/2017 Daily&0900 VITAMIN D-3 TAB 1000 UNITS (VITAMIN D-3) UNITS 09/28/2017 10/07/2017 Daily&0900 FISH OIL CAP CAP 1000 MG (OMEGA 3) MG 09/28/2017 10/07/2017 Daily&0900 PANTOPAZOLE VIAL INJ 40 MG (PROTONIX IV) MG 09/28/2017 10/07/2017 Daily&0900 FUROSEMIDE TAB 40 MG (LASIX) MG 03/201709/28/2017 Daily&1200 FUROSEMIDE TAB 40 MG (LASIX) MG 04/201709/29/2017 Daily&1200 FISH OIL CAP CAP 1000 MG (OMEGA 3) MG 09/30/2017 09/30/2017 ONCE&0915 Problems Date Dx Coded Attending Type Code Diagnosis Diagnosed By 10/23/1436 ADRIANA RIDDLE MD Ot 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 10/23/1436 ADRIANA RIDDLE MD, Ot C91.10 CHRONIC LYMPHOCYTIC LEUK OF B-CELL TYPE 10/23/1436 ADRIANA RIDDLE MD Ot 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 10/23/1436 ADRIANA RIDDLE MD, Ot E78.00 PURE HYPERCHOLESTEROLEMIA, UNSPECIFIED 10/23/1436 ADRIANA RIDDLE MD Ot I12.9 HYPERTENSIVE CHRONIC KIDNEY DISEASE W ST 10/23/1436 ADRIANA RIDDLE MD Ot I25.10 ATHSCL HEART DISEASE OF [place] CORONARY 10/23/1436 ADRIANA RIDDLE MD, Ot N18.3 CHRONIC KIDNEY DISEASE, STAGE 3 (MODERAT 10/23/1436 ADRIANA RIDDLE MD Ot Z51.0 ENCOUNTER FOR ANTINEOPLASTIC RADIATION T 10/23/1436 ADRIANA RIDDLE MD, Ot Z79.82 FPC (CURRENT) USE OF ASPIRIN 10/23/1436 ADRIANA RIDDLE MD, Ot Z79.899 OTHER FPC (CURRENT) DRUG THERAPY 10/23/1436 ADRIANA RIDDLE MD, Ot 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 10/23/1436 ADRIANA RIDDLE MD, Ot Z92.3 PERSONAL HISTORY OF IRRADIATION 10/23/1452 LIZ ALVES Ot C32.1 MALIGNANT NEOPLASM OF SUPRAGLOTTIS 10/23/1452 LIZ ALVES Ot C91.10 CHRONIC LYMPHOCYTIC LEUK OF B-CELL TYPE 10/23/1452 LIZ ALVES Ot N18.3 CHRONIC KIDNEY DISEASE, STAGE 3 (MODERAT 10/23/1452 LIZ ALVES Ot Z79.82 HEALTH THERAPIST (CURRENT) USE OF ASPIRIN 10/23/1452 LIZ ALVES Ot Z92.3 PERSONAL HISTORY OF IRRADIATION 10/23/1508 ADRIANA RIDDLE MD, Ot 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 10/23/1508 ADRIANA RIDDLE MD Ot C91.10 CHRONIC LYMPHOCYTIC LEUK OF B-CELL TYPE 10/23/1508 ARDIANA RIDDLE MD, Ot 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 10/23/1508 ADRIANA RIDDLE MD, Ot E78.00 PURE HYPERCHOLESTEROLEMIA, UNSPECIFIED 10/23/1508 ADRIANA RIDDLE MD Ot I12.9 HYPERTENSIVE CHRONIC KIDNEY DISEASE W ST 10/23/1508 ADRIANA RIDDLE MD, Ot I25.10 ATHSCL HEART DISEASE OF [place] CORONARY 10/23/1508 VENKATESH JOHN, ADRIANA Ot N18.3 CHRONIC KIDNEY DISEASE, STAGE 3 (MODERAT 10/23/1508 VENKATESH JOHN, ADRIANA Ot Z79.82 HEALTH THERAPIST (CURRENT) USE OF ASPIRIN 10/23/1508 ADRIANA RIDDLE MD Ot Z79.899 OTHER HEALTH THERAPIST (CURRENT) DRUG THERAPY 10/23/1508 ADRIANA RIDDLE MD Ot 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 10/23/1508 VENKATESH JOHN, ADRIANA Ot Z92.3 PERSONAL HISTORY OF IRRADIATION 03/07/2013 Ot 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 03/07/2013 Ot 204.10 CHRONIC LYMPHOID LEUKEMIA, W/O MENTION A 03/07/2013 Ot 585.3 CHRONIC KIDNEY DISEASE, STAGE III (MODER 03/07/2013 Ot V15.3 HX OF IRRADIATION 03/07/2013 Ot V58.66 LONG-TERM ( CURRENT) USE OF ASPIRIN 03/07/2013 Ot V58.69 OTH MED,LT, CURRENT USE 06/06/2013 Ot 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 06/06/2013 Ot 204.10 CHRONIC LYMPHOID LEUKEMIA, W/O MENTION A 06/06/2013 Ot 585.3 CHRONIC KIDNEY DISEASE, STAGE III (MODER 06/06/2013 Ot V15.3 HX OF IRRADIATION 06/06/2013 Ot V58.66 LONG-TERM ( CURRENT) USE OF ASPIRIN 06/06/2013 Ot V58.69 OTH MED,LT, CURRENT USE 09/05/2013 LIZ ALVES Ot 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 09/05/2013 LIZ ALVES Ot 204.10 CHRONIC LYMPHOID LEUKEMIA, W/O MENTION A 09/05/2013 LIZ ALVES Ot 585.3 CHRONIC KIDNEY DISEASE, STAGE III (MODER 09/05/2013 LIZ ALVES Ot V15.3 HX OF IRRADIATION 09/05/2013 LIZ ALVES Ot V58.66 LONG-TERM (CURRENT) USE OF ASPIRIN 09/05/2013 LIZ ALVES Ot V58.69 OTH MED,LT,CURRENT USE 12/13/2013 LIZ ALVES Ot 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 12/13/2013 LIZ ALVES Ot 204.10 CHRONIC LYMPHOID LEUKEMIA, W/O MENTION A 12/13/2013 LONGLIZ RODRÍGUEZ N Ot 585.3 CHRONIC KIDNEY DISEASE, STAGE III (MODER 12/13/2013 LONGLIZ RODRÍGUEZ N Ot V15.3 HX OF IRRADIATION 12/13/2013 LIZ ALVES N Ot V58.66 LONG-TERM (CURRENT) USE OF ASPIRIN 12/13/2013 LONG LIZ N Ot V58.69 OTH MED,LT,CURRENT USE 09/14/2014 LONGLIZ N Ot 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 09/14/2014 LONGLIZ N Ot 204.10 CHRONIC LYMPHOID LEUKEMIA, W/O MENTION A 09/14/2014 LONG, LIZ N Ot 585.3 CHRONIC KIDNEY DISEASE, STAGE III (MODER 09/14/2014 LONG LIZ N Ot V15.3 HX OF IRRADIATION 09/14/2014 LONG LIZ N Ot V58.66 LONG-TERM (CURRENT) USE OF ASPIRIN 09/14/2014 LIZ ALVES N Ot V58.69 OTH MED,LT,CURRENT USE 10/06/2014 BLUE MALHOTRA TIMBER TRIMMER Ot 161.1 10/06/2014 BLUE MALHOTRA TIMBER TRIMMER Ot 204.10 10/06/2014 BLUE MALHOTRA TIMBER TRIMMER Ot 585.3 10/06/2014 BLUE MALHOTRA TIMBER TRIMMER Ot V15.3 10/06/2014 BLUE MALHOTRA TIMBER TRIMMER Ot V58.66 10/06/2014 BLUE MALHOTRA TIMBER TRIMMER Ot V58.69 10/18/2014 BLUE MALHOTRA TIMBER TRIMMER Ot 161.1 10/18/2014 BLUE MALHOTRA TIMBER TRIMMER Ot 204.10 10/18/2014 BLUE MALHOTRA TIMBER TRIMMER Ot 585.3 10/18/2014 BLUE MALHOTRA TIMBER TRIMMER Ot V15.3 10/18/2014 BLUE MALHOTRA TIMBER TRIMMER Ot V58.66 10/18/2014 BLUE MALHOTRA TIMBER TRIMMER Ot V58.69 12/06/2014 LIZ ALVES N Ot 161.1 12/06/2014 LIZ ALVES N Ot 204.10 12/06/2014 LIZ ALVES N Ot 585.3 12/06/2014 LONG, BOBAN N [...] V58.69 04/16/2015 LONG, BOBAN N Ot 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 04/16/2015 LONG, BOBAN N Ot 204.10 CHRONIC LYMPHOID LEUKEMIA, W/O MENTION A 04/16/2015 LONG, BOBAN N Ot 585.3 CHRONIC KIDNEY DISEASE, STAGE III (MODER 04/16/2015 LONG, BOBAN N Ot V15.3 HX OF IRRADIATION 04/16/2015 LONG, DAVONTEAN N Ot V58.66 LONG-TERM (CURRENT) USE OF ASPIRIN 04/16/2015 LONG, BOBANT N Ot V58.69 OTH MED,LT,CURRENT USE 04/28/2015 LONG, BOBAN N Ot 161.1 04/28/2015 LONG, BOBAN N Ot 204.10 04/28/2015 LONG, BOBANT N Ot 585.3 04/28/2015 LONG, BOBANT N Ot V15.3 04/28/2015 LONG, BOBAN N [...] 05/09/2015 LONG, BOBAN N Ot V58.69 06/15/2015 LNOG, BOBAN N Ot 161.1 06/15/2015 LONG, BOBAN [...] LONG, BOBAN N Ot V58.66 07/10/2015 LONG, LIZ N Ot V58.69 08/06/2015 LIZ ALVES N Ot 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 08/06/2015 LIZ ALVES N Ot 204.10 CHRONIC LYMPHOID LEUKEMIA, W/O MENTION A 08/06/2015 LONGLIZ N Ot 585.3 CHRONIC KIDNEY DISEASE, STAGE III (MODER 08/06/2015 LONGLIZ N Ot V15.3 HX OF IRRADIATION 08/06/2015 LONGLIZ N Ot V58.66 LONG-TERM (CURRENT) USE OF ASPIRIN 08/06/2015 LIZ ALVES N Ot V58.69 OTH MED,LT,CURRENT USE 09/18/2015 BLUE MALHOTRA TIMBER TRIMMER Ot 161.1 09/18/2015 BLUE MALHOTRA TIMBER TRIMMER Ot 204.10 09/18/2015 BLUE MALHOTRA TIMBER TRIMMER Ot 287.5 09/18/2015 BLUE MALHOTRA TIMBER TRIMMER Ot 585.3 09/18/2015 BLUE MALHOTRA TIMBER TRIMMER Ot V15.3 09/18/2015 BLUE MALHOTRA TIMBER TRIMMER Ot V58.66 09/18/2015 BLUE MALHOTRA TIMBER TRIMMER Ot V58.69 10/04/2015 BLUE MALHOTRA TIMBER TRIMMER Ot 161.1 10/04/2015 BLUE MALHOTRA TIMBER TRIMMER Ot 204.10 10/04/2015 BLUE MALHOTRA TIMBER TRIMMER Ot 287.5 10/04/2015 BLUE MALHOTRA TIMBER TRIMMER Ot 585.3 10/04/2015 BLUE MALHOTRA TIMBER TRIMMER Ot V15.3 10/04/2015 BLUE MALHOTRA TIMBER TRIMMER Ot V58.66 10/04/2015 BLUE MALHOTRA TIMBER TRIMMER Ot V58.69 11/10/2015 LIZ ALVES N Ot 161.1 11/10/2015 LIZ ALVES N Ot 204.10 11/10/2015 LONGLIZ RODRÍGUEZ N Ot 585.3 11/10/2015 LONGLIZ RODRÍGUEZ N Ot C32.1 11/10/2015 LONGLIZ RODRÍGUEZ N Ot C91.10 11/10/2015 LIZ ALVES N Ot N18.3 11/10/2015 LIZ ALVES N Ot V15.3 11/10/2015 LONGLIZ RODRÍGUEZ N Ot V58.66 11/10/2015 LONGLIZ RODRÍGUEZ N Ot V58.69 11/10/2015 LIZ ALVES N Ot Z79.82 11/10/2015 LIZ ALVES N Ot Z92.3 11/29/2015 LIZ ALVES N Ot C32.1 11/29/2015 LIZ AVLES N Ot C91.10 11/29/2015 LIZ ALVES N Ot N18.3 11/29/2015 LIZ ALVES N Ot Z79.82 11/29/2015 LIZ ALVES N Ot Z92.3 12/05/2015 BLUE MALHOTRA S TIMBER TRIMMER Ot C32.1 12/05/2015 BLUE MALHOTRA S TIMBER TRIMMER Ot C91.10 12/05/2015 LEXY MALHOTRAAH S TIMBER TRIMMER Ot N18.3 12/05/2015 MALHOTRA, HILAH S TIMBER TRIMMER Ot Z79.82 12/05/2015 MALHOTRA HILAH S TIMBER TRIMMER Ot Z92.3 12/27/2015 MARYA HILAH S TIMBER TRIMMER Ot C32.1 12/27/2015 MARYA HILAH S TIMBER TRIMMER Ot C91.10 12/27/2015 LEXY MALHOTRAAH S TIMBER TRIMMER Ot N18.3 12/27/2015 MALHOTRA, HILAH S TIMBER TRIMMER Ot Z79.82 12/27/2015 BLUE MALHOTRA S TIMBER TRIMMER Ot Z92.3 01/01/2016 LIZ ALVES N Ot C32.1 MALIGNANT NEOPLASM OF SUPRAGLOTTIS 01/01/2016 LIZ ALVES N Ot C91.10 CHRONIC LYMPHOCYTIC LEUK OF B-CELL TYPE 01/01/2016 LIZ ALVES N Ot N18.3 CHRONIC KIDNEY DISEASE, STAGE 3 (MODERAT 01/01/2016 LIZ ALVES N Ot Z79.82 FPC (CURRENT) USE OF ASPIRIN 01/01/2016 LIZ ALVES N Ot Z92.3 PERSONAL HISTORY OF IRRADIATION 02/21/2016 LIZ ALVES N Ot C32.1 02/21/2016 LIZ ALVES N Ot C91.10 02/21/2016 LIZ ALVES N Ot N18.3 02/21/2016 LIZ ALVES N Ot Z79.82 02/21/2016 LIZ ALVES N Ot Z92.3 02/29/2016 LIZ ALVES N Ot C32.1 02/29/2016 LIZ ALVES N Ot C91.10 02/29/2016 LIZ ALVES N Ot N18.3 02/29/2016 LONGLIZ RODRÍGUEZ N Ot Z79.82 02/29/2016 LIZ ALVES N Ot Z92.3 04/15/2016 LIZ ALVES N Ot C32.1 MALIGNANT NEOPLASM OF SUPRAGLOTTIS 04/15/2016 LIZ ALVES N Ot C91.10 CHRONIC LYMPHOCYTIC LEUK OF B-CELL TYPE 04/15/2016 LIZ ALVES N Ot N18.3 CHRONIC KIDNEY DISEASE, STAGE 3 (MODERAT 04/15/2016 LIZ ALVES N Ot Z79.82 FPC (CURRENT) USE OF ASPIRIN 04/15/2016 LIZ ALVES N Ot Z92.3 PERSONAL HISTORY OF IRRADIATION 04/18/2016 LIZ ALVES N Ot C32.1 MALIGNANT NEOPLASM OF SUPRAGLOTTIS 04/18/2016 LIZ ALVES N Ot C91.10 CHRONIC LYMPHOCYTIC LEUK OF B-CELL TYPE 04/18/2016 LIZ ALVES N Ot N18.3 CHRONIC KIDNEY DISEASE, STAGE 3 (MODERAT 04/18/2016 LIZ ALVES N Ot Z79.82 FPC (CURRENT) USE OF ASPIRIN 04/18/2016 LIZ ALVES N Ot Z92.3 PERSONAL HISTORY OF IRRADIATION 05/28/2016 LIZ ALVES N Ot C32.1 MALIGNANT NEOPLASM OF SUPRAGLOTTIS 05/28/2016 LIZ ALVES N Ot C91.10 CHRONIC LYMPHOCYTIC LEUK OF B-CELL TYPE 05/28/2016 LIZ ALVES N Ot N18.3 CHRONIC KIDNEY DISEASE, STAGE 3 (MODERAT 05/28/2016 LIZ ALVES N Ot Z79.82 HEALTH THERAPIST (CURRENT) USE OF ASPIRIN 05/28/2016 LIZ ALVES N Ot Z92.3 PERSONAL HISTORY OF IRRADIATION 05/31/2016 BLUE MALHOTRAP Ot C32.1 MALIGNANT NEOPLASM OF SUPRAGLOTTIS 05/31/2016 MALHOTRA, HILAH S TIMBER TRIMMER Ot C91.10 CHRONIC LYMPHOCYTIC LEUK OF B-CELL TYPE 05/31/2016 MALHOTRABLUE [place]on TIMBER TRIMMER Ot N18.3 CHRONIC KIDNEY DISEASE, STAGE 3 (MODERAT 05/31/2016 MALHOTRABLUE [place] TIMBER TRIMMER Ot Z79.82 FPC (CURRENT) USE OF ASPIRIN 05/31/2016 MALHOTRABLUE [place]on TIMBER TRIMMER Ot Z92.3 PERSONAL HISTORY OF IRRADIATION 06/01/2016 MALHOTRABLUE [place]on TIMBER TRIMMER Ot C32.1 MALIGNANT NEOPLASM OF SUPRAGLOTTIS 06/01/2016 MALHOTRABLUE [place] TIMBER TRIMMER Ot C91.10 CHRONIC LYMPHOCYTIC LEUK OF B-CELL TYPE 06/01/2016 MALHOTRABLUE [place] TIMBER TRIMMER Ot N18.3 CHRONIC KIDNEY DISEASE, STAGE 3 (MODERAT 06/01/2016 MALHOTRABLUE [place] TIMBER TRIMMER Ot Z79.82 HEALTH THERAPIST (CURRENT) USE OF ASPIRIN 06/01/2016 MALHOTRA BLUE [place] TIMBER TRIMMER Ot Z92.3 PERSONAL HISTORY OF IRRADIATION 07/04/2016 MALHOTRA BLUE [place] TIMBER TRIMMER Ot C32.1 MALIGNANT NEOPLASM OF SUPRAGLOTTIS 07/04/2016 MALHOTRABLUE [place] TIMBER TRIMMER Ot C91.10 CHRONIC LYMPHOCYTIC LEUK OF B-CELL TYPE 07/04/2016 MALHOTRABLUE [place] TIMBER TRIMMER Ot N18.3 CHRONIC KIDNEY DISEASE, STAGE 3 (MODERAT 07/04/2016 MLAHOTRABLUE [place]on TIMBER TRIMMER Ot Z79.82 HEALTH THERAPIST (CURRENT) USE OF ASPIRIN 07/04/2016 MALHOTRABLUE [place]on TIMBER TRIMMER Ot Z92.3 PERSONAL HISTORY OF IRRADIATION 07/09/2016 MALHOTRABLUE [place]on TIMBER TRIMMER Ot C32.1 MALIGNANT NEOPLASM OF SUPRAGLOTTIS 07/09/2016 MALHOTRABLUE [place]on TIMBER TRIMMER Ot C91.10 CHRONIC LYMPHOCYTIC LEUK OF B-CELL TYPE 07/09/2016 MALHOTRABLUE [place] TIMBER TRIMMER Ot N18.3 CHRONIC KIDNEY DISEASE, STAGE 3 (MODERAT 07/09/2016 MALHOTRABLUE [place] TIMBER TRIMMER Ot Z79.82 FPC (CURRENT) USE OF ASPIRIN 07/09/2016 MALHOTRABLUE [place] TIMBER TRIMMER Ot Z92.3 PERSONAL HISTORY OF IRRADIATION 07/11/2016 MARYA BLUE [place] TIMBER TRIMMER Ot C91.10 CHRONIC LYMPHOCYTIC LEUK OF B-CELL TYPE 08/02/2016 BLUE MALHOTRA TIMBER TRIMMER Ot C91.10 CHRONIC LYMPHOCYTIC LEUK OF B-CELL TYPE 08/05/2016 BLUE MALHOTRA TIMBER TRIMMER Ot C91.10 CHRONIC LYMPHOCYTIC LEUK OF B-CELL TYPE 08/22/2016 LIZ ALVES N Ot C32.1 MALIGNANT NEOPLASM OF SUPRAGLOTTIS 08/22/2016 ILZ ALVES N Ot C91.10 CHRONIC LYMPHOCYTIC LEUK OF B-CELL TYPE 08/22/2016 LIZ ALVES N Ot N18.3 CHRONIC KIDNEY DISEASE, STAGE 3 (MODERAT 08/22/2016 LIZ ALVES N Ot Z79.82 HEALTH THERAPIST (CURRENT) USE OF ASPIRIN 08/22/2016 LIZ ALVES N Ot Z92.3 PERSONAL HISTORY OF IRRADIATION 09/02/2016 LIZ ALVES N Ot C32.1 MALIGNANT NEOPLASM OF SUPRAGLOTTIS 09/02/2016 LIZ ALVES N Ot C91.10 CHRONIC LYMPHOCYTIC LEUK OF B-CELL TYPE 09/02/2016 LIZ ALVES N Ot N18.3 CHRONIC KIDNEY DISEASE, STAGE 3 (MODERAT 09/02/2016 LIZ ALVES N Ot Z79.82 HEALTH THERAPIST (CURRENT) USE OF ASPIRIN 09/02/2016 LIZ ALVES N Ot Z92.3 PERSONAL HISTORY OF IRRADIATION 10/08/2016 LIZ ALVES N Ot C32.1 MALIGNANT NEOPLASM OF SUPRAGLOTTIS 10/08/2016 LIZ ALVES N Ot C91.10 CHRONIC LYMPHOCYTIC LEUK OF B-CELL TYPE 10/08/2016 LIZ ALVES N Ot N18.3 CHRONIC KIDNEY DISEASE, STAGE 3 (MODERAT 10/08/2016 LIZ ALVES N Ot Z79.82 FPC (CURRENT) USE OF ASPIRIN 10/08/2016 LIZ ALVES N Ot Z92.3 PERSONAL HISTORY OF IRRADIATION 10/11/2016 LIZ ALVES N Ot C32.1 MALIGNANT NEOPLASM OF SUPRAGLOTTIS 10/11/2016 LIZ ALVES N Ot C91.10 CHRONIC LYMPHOCYTIC LEUK OF B-CELL TYPE 10/11/2016 LIZ ALVES N Ot N18.3 CHRONIC KIDNEY DISEASE, STAGE 3 (MODERAT 10/11/2016 LIZ ALVES N Ot Z79.82 HEALTH THERAPIST (CURRENT) USE OF ASPIRIN 10/11/2016 LIZ ALVES N Ot Z92.3 PERSONAL HISTORY OF IRRADIATION 11/02/2016 Nyasia Azar A 599.0 URINARY TRACT INFECTION, SITE NOT SPECIFIED 11/02/2016 Nyasia Azar W 780.60 FEVER, UNSPECIFIED 11/02/2016 Nyasia Azar W 786.2 COUGH 11/02/2016 Nyasia Azar A N39.0 URINARY TRACT INFECTION, SITE NOT SPECIFIED 11/02/2016 Nyasia Azar W R05 COUGH 11/02/2016 Nyasia Azar W R50.9 FEVER, UNSPECIFIED 11/04/2016 Bárbara Joshia W R68.89 OTHER GENERAL SYMPTOMS AND SIGNS 11/04/2016 Adi, Yaritza W V47.4 OTHER URINARY PROBLEMS 11/04/2016 Adi, Yaritza W R68.89 OTHER GENERAL SYMPTOMS AND SIGNS 11/04/2016 AdiBárbara burnsa W V47.4 OTHER URINARY PROBLEMS 11/04/2016 Adi, Yaritza W R68.89 OTHER GENERAL SYMPTOMS AND SIGNS 11/04/2016 Adi, Yaritza W V47.4 OTHER URINARY PROBLEMS 11/04/2016 Adi, Yaritza W R68.89 OTHER GENERAL SYMPTOMS AND SIGNS 11/04/2016 Adi, Yaritza W V47.4 OTHER URINARY PROBLEMS 11/07/2016 Bárbara Joshia A 599.0 URINARY TRACT INFECTION, SITE NOT SPECIFIED 11/07/2016 Bárbara Joshia A N39.0 URINARY TRACT INFECTION, SITE NOT SPECIFIED 11/07/2016 Adi, Yaritza W R68.89 OTHER GENERAL SYMPTOMS AND SIGNS 11/07/2016 Bárbara Joshia W V47.4 OTHER URINARY PROBLEMS 11/21/2016 LONGLIZ Ot C32.1 MALIGNANT NEOPLASM OF SUPRAGLOTTIS 11/21/2016 LIZ ALVES Ot C91.10 CHRONIC LYMPHOCYTIC LEUK OF B-CELL TYPE 11/21/2016 LIZ ALVES Ot N18.3 CHRONIC KIDNEY DISEASE, STAGE 3 (MODERAT 11/21/2016 LIZ ALVES Ot Z79.82 FPC (CURRENT) USE OF ASPIRIN 11/21/2016 LIZ ALVES Ot Z92.3 PERSONAL HISTORY OF IRRADIATION 11/21/2016 LIZ ALVES Ot C32.1 MALIGNANT NEOPLASM OF SUPRAGLOTTIS 11/21/2016 LIZ ALVES Cody Ot C91.10 CHRONIC LYMPHOCYTIC LEUK OF B-CELL TYPE 11/21/2016 LIZ ALVES Cody Ot N18.3 CHRONIC KIDNEY DISEASE, STAGE 3 (MODERAT 11/21/2016 LIZ ALVES Cody Ot Z79.82 HEALTH THERAPIST (CURRENT) USE OF ASPIRIN 11/21/2016 LIZ ALVES Cody Ot Z92.3 PERSONAL HISTORY OF IRRADIATION 11/25/2016 Lex Lamas 599.0 URINARY TRACT INFECTION, SITE NOT SPECIFIED 11/25/2016 Lex Lamas 780.60 FEVER, UNSPECIFIED 11/25/2016 Lex Lamas N39.0 URINARY TRACT INFECTION, SITE NOT SPECIFIED 11/25/2016 Lex Lamas R50.9 FEVER, UNSPECIFIED 12/14/2016 Bj Ayala 041.49 OTHER AND UNSPECIFIED ESCHERICHIA COLI [E. 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, LEFT HAND 01/08/2017 LONG, DAVONTEANT Cody Ot C32.1 MALIGNANT NEOPLASM OF SUPRAGLOTTIS 01/08/2017 LONG, DAVONTEANT Cody Ot C91.10 CHRONIC LYMPHOCYTIC LEUK OF B-CELL TYPE 01/08/2017 LONG, DAVONTEANT Cody Ot N18.3 CHRONIC KIDNEY DISEASE, STAGE 3 (MODERAT 01/08/2017 LIZ ALVES Cody Ot Z79.82 FPC (CURRENT) USE OF ASPIRIN 01/08/2017 LIZ ALVES Cody Ot Z92.3 PERSONAL HISTORY OF IRRADIATION 01/15/2017 LONG LIZ Ross Ot C32.1 MALIGNANT NEOPLASM OF SUPRAGLOTTIS 01/15/2017 LONG LIZ Ross Ot C91.10 CHRONIC LYMPHOCYTIC LEUK OF B-CELL TYPE 01/15/2017 LIZ ALVES Cody Ot N18.3 CHRONIC KIDNEY DISEASE, STAGE 3 (MODERAT 01/15/2017 LONG DAVONTEANT Cody Ot Z79.82 HEALTH THERAPIST (CURRENT) USE OF ASPIRIN 01/15/2017 LIZ ALVES N Ot Z92.3 PERSONAL HISTORY OF IRRADIATION 01/20/2017 LIZ ALVES N Ot C32.1 MALIGNANT NEOPLASM OF SUPRAGLOTTIS 01/20/2017 LIZ ALVES N Ot C91.10 CHRONIC LYMPHOCYTIC LEUK OF B-CELL TYPE 01/20/2017 LIZ ALVES N Ot N18.3 CHRONIC KIDNEY DISEASE, STAGE 3 (MODERAT 01/20/2017 LIZ ALVES N Ot Z79.82 FPC (CURRENT) USE OF ASPIRIN 01/20/2017 LIZ ALVES N Ot Z92.3 PERSONAL HISTORY OF IRRADIATION 02/13/2017 LIZ ALVES N Ot C32.1 MALIGNANT NEOPLASM OF SUPRAGLOTTIS 02/13/2017 LIZ ALVES N Ot C91.10 CHRONIC LYMPHOCYTIC LEUK OF B-CELL TYPE 02/13/2017 LIZ ALVES N Ot N18.3 CHRONIC KIDNEY DISEASE, STAGE 3 (MODERAT 02/13/2017 LIZ ALVES N Ot Z79.82 FPC (CURRENT) USE OF ASPIRIN 02/13/2017 LIZ ALVES N Ot Z92.3 PERSONAL HISTORY OF IRRADIATION 02/17/2017 LIZ ALVES N Ot C32.1 MALIGNANT NEOPLASM OF SUPRAGLOTTIS 02/17/2017 LIZ ALVES N Ot C91.10 CHRONIC LYMPHOCYTIC LEUK OF B-CELL TYPE 02/17/2017 LIZ ALVES N Ot N18.3 CHRONIC KIDNEY DISEASE, STAGE 3 (MODERAT 02/17/2017 LIZ ALVES N Ot Z79.82 HEALTH THERAPIST (CURRENT) USE OF ASPIRIN 02/17/2017 LIZ ALVES N Ot Z92.3 PERSONAL HISTORY OF IRRADIATION 04/16/2017 LIZ ALVES N Ot C32.1 MALIGNANT NEOPLASM OF SUPRAGLOTTIS 04/16/2017 LIZ ALVES N Ot C91.10 CHRONIC LYMPHOCYTIC LEUK OF B-CELL TYPE 04/16/2017 LIZ ALVES N Ot N18.3 CHRONIC KIDNEY DISEASE, STAGE 3 (MODERAT 04/16/2017 LIZ ALVES N Ot Z79.82 HEALTH THERAPIST (CURRENT) USE OF ASPIRIN 04/16/2017 LIZ ALVES N Ot Z92.3 PERSONAL HISTORY OF IRRADIATION 04/24/2017 LIZ ALVES N Ot C91.10 CHRONIC LYMPHOCYTIC LEUK OF B-CELL TYPE 04/24/2017 LONGLIZ N Ot 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 04/24/2017 LONG LIZ Ross Ot E78.00 PURE HYPERCHOLESTEROLEMIA, UNSPECIFIED 04/24/2017 LONGLIZ N Ot I12.9 HYPERTENSIVE CHRONIC KIDNEY DISEASE W ST 04/24/2017 LONG LIZ N Ot I25.10 ATHSCL HEART DISEASE OF [place] CORONARY 04/24/2017 LONGLIZ Ot N18.3 CHRONIC KIDNEY DISEASE, STAGE 3 (MODERAT 04/24/2017 LIZ ALVES N Ot Z79.82 HEALTH THERAPIST (CURRENT) USE OF ASPIRIN 04/24/2017 LIZ ALVES N Ot Z79.899 OTHER HEALTH THERAPIST (CURRENT) DRUG THERAPY 04/24/2017 LIZ ALVES N Ot 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 04/24/2017 LIZ ALVES Ot Z92.3 PERSONAL HISTORY OF IRRADIATION 04/25/2017 EMMA JOHN, KRISTINE A Ot C61 MALIGNANT NEOPLASM OF PROSTATE 04/25/2017 EMMA JOHN, KRISTINE Juárez Ot R16.1 SPLENOMEGALY, NOT ELSEWHERE CLASSIFIED 04/25/2017 EMMA JOHN, KRISTINE Juárez Ot R59.1 GENERALIZED ENLARGED LYMPH NODES 05/05/2017 BLUE MALHOTRAP Ot C91.10 CHRONIC LYMPHOCYTIC LEUK OF B-CELL TYPE 05/15/2017 LIZ ALVES Ot C91.10 CHRONIC LYMPHOCYTIC LEUK OF B-CELL TYPE 05/15/2017 LIZ ALVES N Ot 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 05/15/2017 LIZ ALVES Ot E78.00 PURE HYPERCHOLESTEROLEMIA, UNSPECIFIED 05/15/2017 LIZ ALVES N Ot I12.9 HYPERTENSIVE CHRONIC KIDNEY DISEASE W ST 05/15/2017 LIZ ALVES N Ot I25.10 ATHSCL HEART DISEASE OF [place] CORONARY 05/15/2017 LONGLIZ Ot N18.3 CHRONIC KIDNEY DISEASE, STAGE 3 (MODERAT 05/15/2017 LIZ ALVES N Ot Z79.82 FPC (CURRENT) USE OF ASPIRIN 05/15/2017 LIZ ALVES N Ot Z79.899 OTHER FPC (CURRENT) DRUG THERAPY 05/15/2017 LIZ ALVES N Ot 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 05/15/2017 LIZ ALVES Cody Ot Z92.3 PERSONAL HISTORY OF IRRADIATION 05/20/2017 BLUE MALHOTRA Ot C91.10 CHRONIC LYMPHOCYTIC LEUK OF B-CELL TYPE 05/21/2017 LONG LIZ Ross Ot C91.10 CHRONIC LYMPHOCYTIC LEUK OF B-CELL TYPE 05/21/2017 LONG LIZ Ross Ot 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 05/21/2017 LONG DAVONTEANT Cody Ot E78.00 PURE HYPERCHOLESTEROLEMIA, UNSPECIFIED 05/21/2017 LONG LIZ Ross Ot I12.9 HYPERTENSIVE CHRONIC KIDNEY DISEASE W ST 05/21/2017 LONG LIZ Ross Ot I25.10 ATHSCL HEART DISEASE OF [place] CORONARY 05/21/2017 LONG LIZ Ross Ot N18.3 CHRONIC KIDNEY DISEASE, STAGE 3 (MODERAT 05/21/2017 LIZ ALVES Cody Ot Z79.82 HEALTH THERAPIST (CURRENT) USE OF ASPIRIN 05/21/2017 LONGLIZ Ot Z79.899 OTHER FPC (CURRENT) DRUG THERAPY 05/21/2017 LIZ ALVES Cody Ot 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 05/21/2017 LIZ ALVES Cody Ot Z92.3 PERSONAL HISTORY OF IRRADIATION 05/29/2017 KRISTINE ZEE MD Ot C61 MALIGNANT NEOPLASM OF PROSTATE 05/29/2017 KRISTINE ZEE MD Ot R16.1 SPLENOMEGALY, NOT ELSEWHERE CLASSIFIED 05/29/2017 KRISTINE ZEE MD Ot R59.1 GENERALIZED ENLARGED LYMPH NODES 06/03/2017 KRISTINE ZEE MD Ot C61 MALIGNANT NEOPLASM OF PROSTATE 06/03/2017 KRISTINE ZEE MD Ot R16.1 SPLENOMEGALY, NOT ELSEWHERE CLASSIFIED 06/03/2017 KRISTINE ZEE MD Ot R59.1 GENERALIZED ENLARGED LYMPH NODES 07/21/2017 LONGLIZ RODRÍGUEZ Ot C91.10 CHRONIC LYMPHOCYTIC LEUK OF B-CELL TYPE 07/21/2017 LONGLIZ Ot 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 07/21/2017 LONGLIZ Ot E78.00 PURE HYPERCHOLESTEROLEMIA, UNSPECIFIED 07/21/2017 LONGLIZ Ot I12.9 HYPERTENSIVE CHRONIC KIDNEY DISEASE W ST 07/21/2017 LIZ ALVES N Ot I25.10 ATHSCL HEART DISEASE OF [place] CORONARY 07/21/2017 LIZ ALVES N Ot N18.3 CHRONIC KIDNEY DISEASE, STAGE 3 (MODERAT 07/21/2017 LIZ ALVES N Ot Z79.82 FPC (CURRENT) USE OF ASPIRIN 07/21/2017 LONG LIZ N Ot Z79.899 OTHER HEALTH THERAPIST (CURRENT) DRUG THERAPY 07/21/2017 LONG LIZ N Ot 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 07/21/2017 LONG LIZ N Ot Z92.3 PERSONAL HISTORY OF IRRADIATION 07/22/2017 LONG LIZ N Ot C91.10 CHRONIC LYMPHOCYTIC LEUK OF B-CELL TYPE 07/22/2017 LONG LIZ N Ot 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 07/22/2017 LONG LIZ N Ot E78.00 PURE HYPERCHOLESTEROLEMIA, UNSPECIFIED 07/22/2017 LONG LIZ N Ot I12.9 HYPERTENSIVE CHRONIC KIDNEY DISEASE W ST 07/22/2017 LONG LIZ N Ot I25.10 ATHSCL HEART DISEASE OF [place] CORONARY 07/22/2017 LONG DAVONTEANT N Ot N18.3 CHRONIC KIDNEY DISEASE, STAGE 3 (MODERAT 07/22/2017 LIZ ALVES N Ot Z79.82 HEALTH THERAPIST (CURRENT) USE OF ASPIRIN 07/22/2017 LIZ ALVES N Ot Z79.899 OTHER HEALTH THERAPIST (CURRENT) DRUG THERAPY 07/22/2017 LONG LIZ N Ot 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 07/22/2017 LONG LIZ N Ot Z92.3 PERSONAL HISTORY OF IRRADIATION 08/20/2017 LONG LIZ N Ot C91.10 CHRONIC LYMPHOCYTIC LEUK OF B-CELL TYPE 08/20/2017 LONGLIZ N Ot 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 08/20/2017 LONG LIZ N Ot E78.00 PURE HYPERCHOLESTEROLEMIA, UNSPECIFIED 08/20/2017 LONG LIZ N Ot I12.9 HYPERTENSIVE CHRONIC KIDNEY DISEASE W ST 08/20/2017 LONG LIZ N Ot I25.10 ATHSCL HEART DISEASE OF [place] CORONARY 08/20/2017 LONG LIZ N Ot N18.3 CHRONIC KIDNEY DISEASE, STAGE 3 (MODERAT 08/20/2017 LONGLIZ RODRÍGUEZ N Ot Z79.82 HEALTH THERAPIST (CURRENT) USE OF ASPIRIN 08/20/2017 LIZ ALVES N Ot Z79.899 OTHER FPC (CURRENT) DRUG THERAPY 08/20/2017 DAVONTE ALVESAN N Ot 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 08/20/2017 LONGLIZ RODRÍGUEZ N Ot Z92.3 PERSONAL HISTORY OF IRRADIATION 08/21/2017 LIZ ALVES N Ot C91.10 CHRONIC LYMPHOCYTIC LEUK OF B-CELL TYPE 08/21/2017 LONG BOBAN N Ot 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 08/21/2017 LONG, BOBAN N Ot E78.00 PURE HYPERCHOLESTEROLEMIA, UNSPECIFIED 08/21/2017 LONG BOBAN N Ot I12.9 HYPERTENSIVE CHRONIC KIDNEY DISEASE W ST 08/21/2017 LONG DAVONTEANT N Ot I25.10 ATHSCL HEART DISEASE OF [place] CORONARY 08/21/2017 LONG DAVONTEANT N Ot N18.3 CHRONIC KIDNEY DISEASE, STAGE 3 (MODERAT 08/21/2017 LONGLIZ RODRÍGUEZ N Ot Z79.82 FPC (CURRENT) USE OF ASPIRIN 08/21/2017 LIZ ALVES N Ot Z79.899 OTHER FPC (CURRENT) DRUG THERAPY 08/21/2017 LIZ ALVES N Ot 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 08/21/2017 LIZ ALVES N Ot Z92.3 PERSONAL HISTORY OF IRRADIATION 08/23/2017 LONG DAVONTEANT N Ot C91.10 CHRONIC LYMPHOCYTIC LEUK OF B-CELL TYPE 08/23/2017 LONG LIZ N Ot 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 08/23/2017 LONGLIZ N Ot E78.00 PURE HYPERCHOLESTEROLEMIA, UNSPECIFIED 08/23/2017 LONG ADVONTEAN N Ot I12.9 HYPERTENSIVE CHRONIC KIDNEY DISEASE W ST 08/23/2017 LONG LIZ N Ot I25.10 ATHSCL HEART DISEASE OF [place] CORONARY 08/23/2017 LIZ ALVES N Ot N18.3 CHRONIC KIDNEY DISEASE, STAGE 3 (MODERAT 08/23/2017 LONG, DAVONTEANT N Ot Z79.82 HEALTH THERAPIST (CURRENT) USE OF ASPIRIN 08/23/2017 LIZ ALVES N Ot Z79.899 OTHER FPC (CURRENT) DRUG THERAPY 08/23/2017 LIZ ALVES N Ot 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 08/23/2017 LIZ ALVES N Ot Z92.3 PERSONAL HISTORY OF IRRADIATION 08/30/2017 LIZ ALVES Cody Ot C91.10 CHRONIC LYMPHOCYTIC LEUK OF B-CELL TYPE 08/30/2017 LIZ ALVES Cody Ot 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 08/30/2017 LIZ ALVES Cody Ot E78.00 PURE HYPERCHOLESTEROLEMIA, UNSPECIFIED 08/30/2017 LIZ ALVES N Ot I12.9 HYPERTENSIVE CHRONIC KIDNEY DISEASE W ST 08/30/2017 LIZ ALVES Cody Ot I25.10 ATHSCL HEART DISEASE OF [place] CORONARY 08/30/2017 LIZ ALVES Cody Ot N18.3 CHRONIC KIDNEY DISEASE, STAGE 3 (MODERAT 08/30/2017 LIZ ALVES N Ot Z79.82 HEALTH THERAPIST (CURRENT) USE OF ASPIRIN 08/30/2017 LIZ ALVES N Ot Z79.899 OTHER HEALTH THERAPIST (CURRENT) DRUG THERAPY 08/30/2017 LIZ ALVES N Ot 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 08/30/2017 LIZ ALVES Cody Ot Z92.3 PERSONAL HISTORY OF IRRADIATION 09/21/2017 Yaritza Joshi W 204.10 CHRONIC LYMPHOID LEUKEMIA WITHOUT MENTION OF HAVING ACHIEVED REMISSION 09/21/2017 Yaritza Joshi W 780.61 FEVER PRESENTING WITH CONDITIONS CLASSIFIED ELSEWHERE 09/21/2017 Yaritza Joshi C91.90 LYMPHOID LEUKEMIA, UNSPECIFIED NOT HAVING ACHIEVED REMISSION 09/21/2017 Yaritza Joshi R50.81 FEVER PRESENTING WITH CONDITIONS CLASSIFIED ELSEWHERE 09/21/2017 Yaritza Joshi W 204.10 CHRONIC LYMPHOID LEUKEMIA WITHOUT MENTION OF HAVING ACHIEVED REMISSION 09/21/2017 Yaritza Joshi W 285.9 ANEMIA, UNSPECIFIED 09/21/2017 Yaritza Joshi 428.0 CONGESTIVE HEART FAILURE, UNSPECIFIED 09/21/2017 Yaritza Joshi W 780.61 FEVER PRESENTING WITH CONDITIONS CLASSIFIED ELSEWHERE 09/21/2017 Yaritza Joshi C91.90 LYMPHOID LEUKEMIA, UNSPECIFIED NOT HAVING ACHIEVED REMISSION 09/21/2017 Adi, Yaritza W D64.9 ANEMIA, UNSPECIFIED 09/21/2017 Adi, Yaritza W I50.1 LEFT VENTRICULAR FAILURE 09/21/2017 Adi, Yaritza W R50.81 FEVER PRESENTING WITH CONDITIONS CLASSIFIED ELSEWHERE 09/22/2017 Adi, Yaritza W 204.10 CHRONIC LYMPHOID LEUKEMIA WITHOUT MENTION OF HAVING ACHIEVED REMISSION 09/22/2017 Adi, Yaritza W 285.9 ANEMIA, UNSPECIFIED 09/22/2017 Adi, Yaritza W 428.0 CONGESTIVE HEART FAILURE, UNSPECIFIED 09/22/2017 Adi, Yaritza W 780.61 FEVER PRESENTING WITH CONDITIONS CLASSIFIED ELSEWHERE 09/22/2017 Adi, Yaritza W C91.90 LYMPHOID LEUKEMIA, UNSPECIFIED NOT HAVING ACHIEVED REMISSION 09/22/2017 Adi, Yaritza W D64.9 ANEMIA, UNSPECIFIED 09/22/2017 Adi, Yaritza W I50.1 LEFT VENTRICULAR FAILURE 09/22/2017 Adi, Yaritza W R50.81 FEVER PRESENTING WITH CONDITIONS CLASSIFIED ELSEWHERE 09/22/2017 Adi, Yaritza W 204.10 CHRONIC LYMPHOID LEUKEMIA WITHOUT MENTION OF HAVING ACHIEVED REMISSION 09/22/2017 Adi, Yaritza W 285.9 ANEMIA, UNSPECIFIED 09/22/2017 Adi, Yaritza W 428.0 CONGESTIVE HEART FAILURE, UNSPECIFIED 09/22/2017 Adi, Yaritza W 780.61 FEVER PRESENTING WITH CONDITIONS CLASSIFIED ELSEWHERE 09/22/2017 Adi, Yaritza W C91.90 LYMPHOID LEUKEMIA, UNSPECIFIED NOT HAVING ACHIEVED REMISSION 09/22/2017 Adi, Yaritza W D64.9 ANEMIA, UNSPECIFIED 09/22/2017 Adi, Yaritza W I50.1 LEFT VENTRICULAR FAILURE 09/22/2017 Adi, Yaritza W R50.81 FEVER PRESENTING WITH CONDITIONS CLASSIFIED ELSEWHERE 09/23/2017 Adi Yaritza A J18.9 09/24/2017 Adi, Yaritza W 204.10 CHRONIC LYMPHOID LEUKEMIA WITHOUT MENTION OF HAVING ACHIEVED REMISSION 09/24/2017 Dai, Yaritza W 285.9 ANEMIA, UNSPECIFIED 09/24/2017 Adi, Yaritza W 428.0 CONGESTIVE HEART FAILURE, UNSPECIFIED 09/24/2017 Adi, Yaritza W 780.61 FEVER PRESENTING WITH CONDITIONS CLASSIFIED ELSEWHERE 09/24/2017 Adi, Yaritza W C91.90 LYMPHOID LEUKEMIA, UNSPECIFIED NOT HAVING ACHIEVED REMISSION 09/24/2017 Adi, Yaritza W D64.9 ANEMIA, UNSPECIFIED 09/24/2017 Adi, Yaritza W I50.1 LEFT VENTRICULAR FAILURE 09/24/2017 Adi, Yaritza W R50.81 FEVER PRESENTING WITH CONDITIONS CLASSIFIED ELSEWHERE 09/27/2017 Adi, Yaritza W 204.10 CHRONIC LYMPHOID LEUKEMIA WITHOUT MENTION OF HAVING ACHIEVED REMISSION 09/27/2017 Adi, Yaritza W 285.9 ANEMIA, UNSPECIFIED 09/27/2017 Adi, Yaritza W 287.5 09/27/2017 Adi, Yaritza W 401.0 09/27/2017 Adi, Yaritza W 414.01 09/27/2017 Adi, Yaritza W 428.0 CONGESTIVE HEART FAILURE, UNSPECIFIED 09/27/2017 Adi, Yaritza W 564.00 09/27/2017 Adi, Yaritza W 704.2 09/27/2017 Adi, Yaritza W 780.60 09/27/2017 Adi, Yaritza W 780.61 FEVER PRESENTING WITH CONDITIONS CLASSIFIED ELSEWHERE 09/27/2017 Adi, Yaritza W 785.6 09/27/2017 Adi, Yaritza W 995.29 09/27/2017 Adi, Yaritza W C91.10 09/27/2017 Adi, Yaritza W C91.90 LYMPHOID LEUKEMIA, UNSPECIFIED NOT HAVING ACHIEVED REMISSION 09/27/2017 Adi, Yaritza W D64.9 ANEMIA, UNSPECIFIED 09/27/2017 Adi, Yaritza W D69.6 THROMBOCYTOPENIA, UNSPECIFIED 09/27/2017 Adi, Yaritza W E11.9 09/27/2017 Adi, Yaritza W I10 09/27/2017 Adi, Yaritza W I25.10 09/27/2017 Adi, Yaritza W I50.1 LEFT VENTRICULAR FAILURE 09/27/2017 Adi, Yaritza W I50.22 09/27/2017 Adi, Yaritza A J18.9 09/27/2017 Adi, Yaritza W K59.00 CONSTIPATION, UNSPECIFIED 09/27/2017 Adi, Yaritza W L67.0 09/27/2017 Adi, Yaritza W R09.02 09/27/2017 Adi, Yaritza W R50.81 FEVER PRESENTING WITH CONDITIONS CLASSIFIED ELSEWHERE 09/27/2017 Adi, Yaritza W R50.9 FEVER, UNSPECIFIED 09/27/2017 Yaritza Joshi W R59.0 LOCALIZED ENLARGED LYMPH NODES 09/27/2017 Yaritza Joshi W T36.1X5A 09/27/2017 Yaritza Joshi W V58.61 09/27/2017 Yaritza Joshi W Z79.01 HEALTH THERAPIST (CURRENT) USE OF ANTICOAGULANTS 10/01/2017 Bárbara Joshia W 204.10 10/01/2017 Adi, Yaritza W 250.00 10/01/2017 Adi, Yaritza W 287.5 THROMBOCYTOPENIA, UNSPECIFIED 10/01/2017 Adi, Yaritza W 401.0 10/01/2017 Adi, Yaritza W 414.01 10/01/2017 Adi, Yaritza W 428.22 10/01/2017 Adi, Yaritza A 486 10/01/2017 Adi, Yaritza W C91.10 CHRONIC LYMPHOCYTIC LEUK OF B-CELL TYPE NOT ACHIEVE REMIS 10/01/2017 Yaritza Joshi W D69.6 THROMBOCYTOPENIA, UNSPECIFIED 10/01/2017 Bárbara Joshia W E11.9 TYPE 2 DIABETES MELLITUS WITHOUT COMPLICATIONS 10/01/2017 Yaritza Joshi W I10 ESSENTIAL (PRIMARY) HYPERTENSION 10/01/2017 Yaritza Johsi W I25.10 ATHSCL HEART DISEASE OF [place] CORONARY ARTERY W/O ANG PCTRS 10/01/2017 Yaritza Joshi I50.22 CHRONIC SYSTOLIC (CONGESTIVE) HEART FAILURE 10/01/2017 Yaritza Joshi A J18.9 10/01/2017 Yaritza Joshi W V10.46 PERSONAL HISTORY OF MALIGNANT NEOPLASM OF PROSTATE 10/01/2017 Yaritza Joshi W V45.01 CARDIAC PACEMAKER IN SITU 10/01/2017 Yaritza Joshi W V58.61 LONG-TERM (CURRENT) USE OF ANTICOAGULANTS 10/01/2017 Yaritza Joshi W Z79.01 HEALTH THERAPIST (CURRENT) USE OF ANTICOAGULANTS 10/01/2017 Yaritza Joshi W Z85.46 PERSONAL HISTORY OF MALIGNANT NEOPLASM OF PROSTATE 10/01/2017 Adi, Yaritza W Z95.0 PRESENCE OF CARDIAC PACEMAKER 10/06/2017 VENKATESH JOHN, ADRIANA Perkins C91.10 CHRONIC LYMPHOCYTIC LEUK OF B-CELL TYPE 10/06/2017 ADRIANA RIDDLE MD Ot 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 10/06/2017 ADRIANA RIDDLE MD, Ot E78.00 PURE HYPERCHOLESTEROLEMIA, UNSPECIFIED 10/06/2017 ADRIANA RIDDLE MD, Ot I12.9 HYPERTENSIVE CHRONIC KIDNEY DISEASE W ST 10/06/2017 ADRIANA RIDDLE MD, Ot I25.10 ATHSCL HEART DISEASE OF [place] CORONARY 10/06/2017 ADRIANA RIDDLE MD, Ot N18.3 CHRONIC KIDNEY DISEASE, STAGE 3 (MODERAT 10/06/2017 ADRIANA RIDDLE MD, Ot Z79.82 FPC (CURRENT) USE OF ASPIRIN 10/06/2017 ADRIANA RIDDLE MD, Ot Z79.899 OTHER HEALTH THERAPIST (CURRENT) DRUG THERAPY 10/06/2017 ADRIANA RIDDLE MD, Ot 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 10/06/2017 ADRIANA RIDDLE MD, Ot Z92.3 PERSONAL HISTORY OF IRRADIATION 10/10/2017 KRISTINE ZEE MD, Ot C61 MALIGNANT NEOPLASM OF PROSTATE 10/10/2017 KRISTINE ZEE MD, Ot R16.1 SPLENOMEGALY, NOT ELSEWHERE CLASSIFIED 10/10/2017 KRISTINE ZEE MD, Ot R59.1 GENERALIZED ENLARGED LYMPH NODES 10/10/2017 NYA SINGH MD, Ot L98.9 DISORDER OF THE SKIN AND SUBCUTANEOUS TI 10/10/2017 NYA SINGH MD, Ot Z01.818 ENCOUNTER FOR OTHER PREPROCEDURAL EXAMIN 10/10/2017 W 204.90 UNSPECIFIED LYMPHOID LEUKEMIA WITHOUT MENTION OF HAVING ACHIEVED REMISSION 10/10/2017 W 250.00 DIABETES MELLITUS WITHOUT MENTION OF COMPLICATION, TYPE II OR UNSPECIFIED TYPE, NOT STATED UNCONTROLLED 10/10/2017 W 401.0 MALIGNANT ESSENTIAL HYPERTENSION 10/10/2017 A 428.9 10/10/2017 W 707.05 PRESSURE ULCER, BUTTOCK 10/10/2017 W C91.90 LYMPHOID LEUKEMIA, UNSPECIFIED NOT HAVING ACHIEVED REMISSION 10/10/2017 W E11.9 TYPE 2 DIABETES MELLITUS WITHOUT COMPLICATIONS 10/10/2017 W I10 ESSENTIAL ( PRIMARY) HYPERTENSION 10/10/2017 A I50.9 HEART FAILURE , UNSPECIFIED 10/10/2017 W L89.302 PRESSURE ULCER OF UNSPECIFIED BUTTOCK, STAGE 2 10/15/2017 NYA SINGH MD, Ot 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 10/15/2017 NYA SINGH MD, Ot C91.10 CHRONIC LYMPHOCYTIC LEUK OF B-CELL TYPE 10/15/2017 NYA SINGH MD Ot D69.6 THROMBOCYTOPENIA, UNSPECIFIED 10/15/2017 NYA SINGH MD Ot E11.9 TYPE 2 DIABETES MELLITUS WITHOUT COMPLIC 10/15/2017 NYA SINGH MD Ot G47.33 OBSTRUCTIVE SLEEP APNEA (ADULT) (PEDIATR 10/15/2017 NYA SINGH MD Ot I12.9 HYPERTENSIVE CHRONIC KIDNEY DISEASE W ST 10/15/2017 NYA SINGH MD Ot I25.10 ATHSCL HEART DISEASE OF [place] CORONARY 10/15/2017 NYA SINGH MD Ot I48.92 UNSPECIFIED ATRIAL FLUTTER 10/15/2017 NYA SINGH MD Ot N18.3 CHRONIC KIDNEY DISEASE, STAGE 3 (MODERAT 10/15/2017 NYA SINGH MD Ot Z79.84 FPC (CURRENT) USE OF ORAL HYPOGLYC 10/15/2017 NYA SINGH MD Ot Z79.899 OTHER HEALTH THERAPIST (CURRENT) DRUG THERAPY 10/15/2017 NYA SINGH MD Ot 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 10/15/2017 NYA SINGH MD Ot Z87.891 PERSONAL HISTORY OF NICOTINE DEPENDENCE 10/15/2017 NYA SINGH MD Ot Z88.2 ALLERGY STATUS TO SULFONAMIDES STATUS 10/15/2017 NYA SINGH MD Ot Z95.0 PRESENCE OF CARDIAC PACEMAKER 10/15/2017 NYA SINGH MD Ot Z95.1 PRESENCE OF AORTOCORONARY BYPASS GRAFT 10/21/2017 NYA SINGH MD Ot 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 10/21/2017 NYA SINGH MD Ot C91.10 CHRONIC LYMPHOCYTIC LEUK OF B-CELL TYPE 10/21/2017 NYA SINGH MD Ot D69.6 THROMBOCYTOPENIA, UNSPECIFIED 10/21/2017 NYA SINGH MD Ot E11.9 TYPE 2 DIABETES MELLITUS WITHOUT COMPLIC 10/21/2017 NYA SINGH MD Ot G47.33 OBSTRUCTIVE SLEEP APNEA (ADULT) (PEDIATR 10/21/2017 NYA SINGH MD Ot I12.9 HYPERTENSIVE CHRONIC KIDNEY DISEASE W ST 10/21/2017 NYA SINGH MD Ot I25.10 ATHSCL HEART DISEASE OF [place] CORONARY 10/21/2017 NYA SINGH MD, Ot I48.92 UNSPECIFIED ATRIAL FLUTTER 10/21/2017 NYA SINGH MD, Ot N18.3 CHRONIC KIDNEY DISEASE, STAGE 3 (MODERAT 10/21/2017 NYA SINGH MD, Ot Z79.84 HEALTH THERAPIST (CURRENT) USE OF ORAL HYPOGLYC 10/21/2017 NYA SINGH MD, Ot Z79.899 OTHER FPC (CURRENT) DRUG THERAPY 10/21/2017 NYA SINGH MD, Ot 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 10/21/2017 NYA SINGH MD, Ot Z87.891 PERSONAL HISTORY OF NICOTINE DEPENDENCE 10/21/2017 NYA SINGH MD, Ot Z88.2 ALLERGY STATUS TO SULFONAMIDES STATUS 10/21/2017 NYA SINGH MD, Ot Z95.0 PRESENCE OF CARDIAC PACEMAKER 10/21/2017 NYA SINGH MD, Ot Z95.1 PRESENCE OF AORTOCORONARY BYPASS GRAFT 10/27/2017 ADRIANA RIDDLE MD, Ot C91.10 CHRONIC LYMPHOCYTIC LEUK OF B-CELL TYPE 10/27/2017 ADRIANA RIDDLE MD Ot 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 10/27/2017 ADRIANA RIDDLE MD Ot E78.00 PURE HYPERCHOLESTEROLEMIA, UNSPECIFIED 10/27/2017 ADRIANA RIDDLE MD, Ot I12.9 HYPERTENSIVE CHRONIC KIDNEY DISEASE W ST 10/27/2017 ADRIANA RIDDLE MD, Ot I25.10 ATHSCL HEART DISEASE OF [place] CORONARY 10/27/2017 ADRIANA RIDDLE MD, Ot N18.3 CHRONIC KIDNEY DISEASE, STAGE 3 (MODERAT 10/27/2017 ADRIANA RIDDLE MD, Ot Z79.82 FPC (CURRENT) USE OF ASPIRIN 10/27/2017 ADRIANA RIDDLE MD, Ot Z79.899 OTHER HEALTH THERAPIST (CURRENT) DRUG THERAPY 10/27/2017 ADRIANA RIDDLE MD, Ot 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 10/27/2017 ADRIANA RIDDLE MD, Ot Z92.3 PERSONAL HISTORY OF IRRADIATION 11/07/2017 LIZ ALVES Ot 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 11/07/2017 LIZ ALVES Ot C91.10 CHRONIC LYMPHOCYTIC LEUK OF B-CELL TYPE 11/07/2017 LONG, BOBAN N Ot 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 11/07/2017 LIZ ALVES Ot E78.00 PURE HYPERCHOLESTEROLEMIA, UNSPECIFIED 11/07/2017 LIZ ALVES Ot I12.9 HYPERTENSIVE CHRONIC KIDNEY DISEASE W ST 11/07/2017 LIZ ALVES Ot I25.10 ATHSCL HEART DISEASE OF [place] CORONARY 11/07/2017 LIZ ALVES Ot N18.3 CHRONIC KIDNEY DISEASE, STAGE 3 (MODERAT 11/07/2017 LIZ ALVES Ot Z79.82 HEALTH THERAPIST (CURRENT) USE OF ASPIRIN 11/07/2017 LIZ ALVES Ot Z79.899 OTHER FPC (CURRENT) DRUG THERAPY 11/07/2017 LIZ ALVES Ot 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 11/07/2017 LONGLIZ RODRÍGUEZ Ot Z92.3 PERSONAL HISTORY OF IRRADIATION 11/07/2017 ADRIANA RIDDLE MD Ot 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 11/07/2017 ADRIANA RIDDLE MD, Ot C91.10 CHRONIC LYMPHOCYTIC LEUK OF B-CELL TYPE 11/07/2017 ADRIANA RIDDLE MD Ot 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 11/07/2017 ADRIANA RIDDLE MD Ot E78.00 PURE HYPERCHOLESTEROLEMIA, UNSPECIFIED 11/07/2017 ADRIANA RIDDLE MD, Ot I12.9 HYPERTENSIVE CHRONIC KIDNEY DISEASE W ST 11/07/2017 ADRIANA RIDDLE MD, Ot I25.10 ATHSCL HEART DISEASE OF [place] CORONARY 11/07/2017 ADRIANA RIDDLE MD Ot N18.3 CHRONIC KIDNEY DISEASE, STAGE 3 (MODERAT 11/07/2017 ADRIANA RIDDLE MD Ot Z79.82 HEALTH THERAPIST (CURRENT) USE OF ASPIRIN 11/07/2017 ADRIANA RIDDLE MD Ot Z79.899 OTHER HEALTH THERAPIST (CURRENT) DRUG THERAPY 11/07/2017 ADRIANA RIDDLE MD Ot 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 11/07/2017 ADRIANA RIDDLE MD Ot Z92.3 PERSONAL HISTORY OF IRRADIATION 11/12/2017 ADRIANA RIDDLE MD, Ot 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 11/12/2017 ADRIANA RIDDLE MD Ot C91.10 CHRONIC LYMPHOCYTIC LEUK OF B-CELL TYPE 11/12/2017 ADRIANA RIDDLE MD Ot 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3 PERSONAL HISTORY OF IRRADIATION 11/19/2017 ADRIANA RIDDLE MD Ot 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 11/19/2017 ADRIANA RIDDLE MD Ot C91.10 CHRONIC LYMPHOCYTIC LEUK OF B-CELL TYPE 11/19/2017 ADRIANA RIDDLE MD Ot 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3 PERSONAL HISTORY OF IRRADIATION 11/20/2017 LIZ ALVES Ot 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 11/20/2017 LIZ ALVES Ot C91.10 CHRONIC LYMPHOCYTIC LEUK OF B-CELL TYPE 11/20/2017 LIZ ALVES Ot 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 11/20/2017 LIZ ALVES N Ot E78.00 PURE HYPERCHOLESTEROLEMIA, UNSPECIFIED 11/20/2017 LIZ ALVES N Ot I12.9 HYPERTENSIVE CHRONIC KIDNEY DISEASE W ST 11/20/2017 LIZ ALVES N Ot I25.10 ATHSCL HEART DISEASE OF [place] CORONARY 11/20/2017 LIZ ALVES N Ot N18.3 CHRONIC KIDNEY DISEASE, STAGE 3 (MODERAT 11/20/2017 LIZ ALVES N Ot Z79.82 HEALTH THERAPIST (CURRENT) USE OF ASPIRIN 11/20/2017 LIZ ALVES N Ot Z79.899 OTHER HEALTH THERAPIST (CURRENT) DRUG THERAPY 11/20/2017 LIZ ALVES N Ot 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 11/20/2017 LIZ ALVES N Ot Z92.3 PERSONAL HISTORY OF IRRADIATION 11/25/2017 LIZ ALVES N Ot 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 11/25/2017 LONG DAVONTEANT N Ot C91.10 CHRONIC LYMPHOCYTIC LEUK OF B-CELL TYPE 11/25/2017 LONG DAVONTEANT N Ot 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 11/25/2017 LIZ ALVES N Ot E78.00 PURE HYPERCHOLESTEROLEMIA, UNSPECIFIED 11/25/2017 LIZ ALVES N Ot I12.9 HYPERTENSIVE CHRONIC KIDNEY DISEASE W ST 11/25/2017 LIZ ALVES N Ot I25.10 ATHSCL HEART DISEASE OF [place] CORONARY 11/25/2017 LIZ ALVES N Ot N18.3 CHRONIC KIDNEY DISEASE, STAGE 3 (MODERAT 11/25/2017 LIZ ALVES N Ot Z79.82 HEALTH THERAPIST (CURRENT) USE OF ASPIRIN 11/25/2017 LIZ ALVES N Ot Z79.899 OTHER FPC (CURRENT) DRUG THERAPY 11/25/2017 LIZ ALVES N Ot 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 11/25/2017 LONG DAVONTEANT N Ot Z92.3 PERSONAL HISTORY OF IRRADIATION 11/25/2017 LIZ ALVES N Ot 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 11/25/2017 LONG DAVONTEANT N Ot C91.10 CHRONIC LYMPHOCYTIC LEUK OF B-CELL TYPE 11/25/2017 LONG BOBANT N Ot 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 11/25/2017 LIZ ALVES Ot E78.00 PURE HYPERCHOLESTEROLEMIA, UNSPECIFIED 11/25/2017 LIZ ALVES Ot I12.9 HYPERTENSIVE CHRONIC KIDNEY DISEASE W ST 11/25/2017 LIZ ALVES Ot I25.10 ATHSCL HEART DISEASE OF [place] CORONARY 11/25/2017 LIZ ALVES Ot N18.3 CHRONIC KIDNEY DISEASE, STAGE 3 (MODERAT 11/25/2017 LIZ ALVES Ot Z79.82 FPC (CURRENT) USE OF ASPIRIN 11/25/2017 LIZ ALVES N Ot Z79.899 OTHER HEALTH THERAPIST (CURRENT) DRUG THERAPY 11/25/2017 LIZ ALVES Ot 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 11/25/2017 LIZ ALVES Ot Z92.3 PERSONAL HISTORY OF IRRADIATION 11/25/2017 ADRIANA RIDDLE MD Ot 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 11/25/2017 ADRIANA RIDDLE MD Ot C91.10 CHRONIC LYMPHOCYTIC LEUK OF B-CELL TYPE 11/25/2017 ADRIANA RIDDLE MD Ot 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 11/25/2017 ADRIANA RIDDLE MD Ot E78.00 PURE HYPERCHOLESTEROLEMIA, UNSPECIFIED 11/25/2017 ADRIANA RIDDLE MD Ot I12.9 HYPERTENSIVE CHRONIC KIDNEY DISEASE W ST 11/25/2017 ADRIANA RIDDLE MD Ot I25.10 ATHSCL HEART DISEASE OF [place] CORONARY 11/25/2017 ADRIANA RIDDLE MD Ot N18.3 CHRONIC KIDNEY DISEASE, STAGE 3 (MODERAT 11/25/2017 ADRIANA RIDDLE MD Ot Z79.82 FPC (CURRENT) USE OF ASPIRIN 11/25/2017 ADRIANA RIDDLE MD Ot Z79.899 OTHER HEALTH THERAPIST (CURRENT) DRUG THERAPY 11/25/2017 ADRIANA RIDDLE MD Ot 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 11/25/2017 ADRIANA RIDDLE MD Ot Z92.3 PERSONAL HISTORY OF IRRADIATION 11/26/2017 ADRIANA RIDDLE MD Ot 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 11/26/2017 ADRIANA RIDDLE MD Ot C91.10 CHRONIC LYMPHOCYTIC LEUK OF B-CELL TYPE 11/26/2017 ADRIANA RIDDLE MD Ot 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 11/26/2017 ADRIANA RIDDLE MD Ot E78.00 PURE HYPERCHOLESTEROLEMIA, UNSPECIFIED 11/26/2017 ADRIANA RIDDLE MD Ot I12.9 HYPERTENSIVE CHRONIC KIDNEY DISEASE W ST 11/26/2017 ADRIANA RIDDLE MD Ot I25.10 ATHSCL HEART DISEASE OF [place] CORONARY 11/26/2017 ADRIANA RIDDLE MD Ot N18.3 CHRONIC KIDNEY DISEASE, STAGE 3 (MODERAT 11/26/2017 ADRIANA RIDDLE MD Ot Z79.82 HEALTH THERAPIST (CURRENT) USE OF ASPIRIN 11/26/2017 ADRIANA RIDDLE MD Ot Z79.899 OTHER FPC (CURRENT) DRUG THERAPY 11/26/2017 ADRIANA RIDDLE MD Ot 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 11/26/2017 ADRIANA RIDDLE MD Ot Z92.3 PERSONAL HISTORY OF IRRADIATION 11/27/2017 ADRIANA RIDDLE MD Ot 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 11/27/2017 ADRIANA RIDDLE MD Ot C91.10 CHRONIC LYMPHOCYTIC LEUK OF B-CELL TYPE 11/27/2017 ADRIANA RIDDLE MD Ot 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 11/27/2017 ADRIANA RIDDLE MD Ot E78.00 PURE HYPERCHOLESTEROLEMIA, UNSPECIFIED 11/27/2017 ADRIANA RIDDLE MD Ot I12.9 HYPERTENSIVE CHRONIC KIDNEY DISEASE W ST 11/27/2017 ADRIANA RIDDLE MD Ot I25.10 ATHSCL HEART DISEASE OF [place] CORONARY 11/27/2017 ADRIANA RIDDLE MD Ot N18.3 CHRONIC KIDNEY DISEASE, STAGE 3 (MODERAT 11/27/2017 ADRIANA RIDDLE MD Ot Z51.11 ENCOUNTER FOR ANTINEOPLASTIC CHEMOTHERAP 11/27/2017 ADRIANA RIDDLE MD Ot Z79.82 FPC (CURRENT) USE OF ASPIRIN 11/27/2017 ADRIANA RIDDLE MD Ot Z79.899 OTHER FPC (CURRENT) DRUG THERAPY 11/27/2017 ADRIANA RIDDLE MD Ot 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 11/27/2017 ADRIANA RIDDLE MD Ot Z92.3 PERSONAL HISTORY OF IRRADIATION 12/24/2017 ADRIANA RIDDLE MD Ot 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 12/24/2017 ADRIANA RIDDLE MD Ot C91.10 CHRONIC LYMPHOCYTIC LEUK OF B-CELL TYPE 12/24/2017 ADRIANA RIDDLE MD Ot 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 12/24/2017 ADRIANA RIDDLE MD Ot Z92.3 PERSONAL HISTORY OF IRRADIATION 01/19/2018 ADRIANA RIDDLE MD Ot 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 01/19/2018 ADRIANA RIDDLE MD Ot C91.10 CHRONIC LYMPHOCYTIC LEUK OF B-CELL TYPE 01/19/2018 ADRIANA RIDDLE MD Ot 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 01/19/2018 ADRIANA RIDLDE MD Ot Z92.3 PERSONAL HISTORY OF IRRADIATION 02/18/2018 ADRIANA RIDDLE MD Ot 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 02/18/2018 ADRIANA RIDDLE MD, Ot C91.10 CHRONIC LYMPHOCYTIC LEUK OF B-CELL TYPE 02/18/2018 ADRIANA RIDDLE MD Ot 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 02/18/2018 ADRIANA RIDDLE MD Ot E78.00 PURE HYPERCHOLESTEROLEMIA, UNSPECIFIED 02/18/2018 ADRIANA RIDDLE MD Ot I12.9 HYPERTENSIVE CHRONIC KIDNEY DISEASE W ST 02/18/2018 ADRIANA RIDDLE MD Ot I25.10 ATHSCL HEART DISEASE OF [place] CORONARY 02/18/2018 ADRIANA RIDDLE MD, Ot N18.3 CHRONIC KIDNEY DISEASE, STAGE 3 (MODERAT 02/18/2018 ADRIANA RIDDLE MD Ot Z51.11 ENCOUNTER FOR ANTINEOPLASTIC CHEMOTHERAP 02/18/2018 ADRIANA RIDDLE MD, Ot Z79.82 HEALTH THERAPIST (CURRENT) USE OF ASPIRIN 02/18/2018 ADRIANA RIDDLE MD, Ot Z79.899 OTHER HEALTH THERAPIST (CURRENT) DRUG THERAPY 02/18/2018 ADRIANA RIDDLE MD Ot 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 02/18/2018 ADRIANA RIDDLE MD, Ot Z92.3 PERSONAL HISTORY OF IRRADIATION 02/19/2018 ADRIANA RIDDLE MD Ot C91.10 CHRONIC LYMPHOCYTIC LEUK OF B-CELL TYPE 02/19/2018 ADRIANA RIDDLE MD Ot E04.1 NONTOXIC SINGLE THYROID NODULE 02/19/2018 ADRIANA RIDDLE MD, Ot C91.10 CHRONIC LYMPHOCYTIC LEUK OF B-CELL TYPE 02/19/2018 ADRIANA RIDDLE MD Ot E04.1 NONTOXIC SINGLE THYROID NODULE 02/24/2018 ADRIANA RIDDLE MD Ot 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 02/24/2018 ADRIANA RIDDLE MD, Ot C91.10 CHRONIC LYMPHOCYTIC LEUK OF B-CELL TYPE 02/24/2018 ADRIANA RIDDLE MD Ot 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 02/24/2018 ADRIANA RIDDLE MD Ot Z92.3 PERSONAL HISTORY OF IRRADIATION 02/28/2018 ADRIANA RIDDLE MD Ot 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 02/28/2018 ADRIANA RIDDLE MD Ot C91.10 CHRONIC LYMPHOCYTIC LEUK OF B-CELL TYPE 02/28/2018 ADRIANA RIDDLE MD Ot 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 02/28/2018 ADRIANA RIDDLE MD Ot E78.00 PURE HYPERCHOLESTEROLEMIA, UNSPECIFIED 02/28/2018 ADRIANA RIDDLE MD Ot I12.9 HYPERTENSIVE CHRONIC KIDNEY DISEASE W ST 02/28/2018 ADRIANA RIDDLE MD Ot I25.10 ATHSCL HEART DISEASE OF [place] CORONARY 02/28/2018 ADRIANA RIDDLE MD, Ot N18.3 CHRONIC KIDNEY DISEASE, STAGE 3 (MODERAT 02/28/2018 ADRIANA RIDDLE MD Ot Z51.11 ENCOUNTER FOR ANTINEOPLASTIC CHEMOTHERAP 02/28/2018 ADRIANA RIDDLE MD, Ot Z79.82 HEALTH THERAPIST (CURRENT) USE OF ASPIRIN 02/28/2018 ARDIANA RIDDLE MD, Ot Z79.899 OTHER HEALTH THERAPIST (CURRENT) DRUG THERAPY 02/28/2018 ADRIANA RIDDLE MD, Ot 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 02/28/2018 ADRIANA RIDDLE MD Ot Z92.3 PERSONAL HISTORY OF IRRADIATION 03/13/2018 ADRIANA RIDDLE MD, Ot C91.10 CHRONIC LYMPHOCYTIC LEUK OF B-CELL TYPE 03/13/2018 ADRIANA RIDDLE MD Ot E04.1 NONTOXIC SINGLE THYROID NODULE 03/13/2018 ADRIANA RIDDLE MD Ot C91.10 CHRONIC LYMPHOCYTIC LEUK OF B-CELL TYPE 03/13/2018 ADRIANA RIDDLE MD Ot E04.1 NONTOXIC SINGLE THYROID NODULE 03/16/2018 ADRIANA RIDDLE MD, Ot 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 03/16/2018 ADRIANA RIDDLE MD Ot C91.10 CHRONIC LYMPHOCYTIC LEUK OF B-CELL TYPE 03/16/2018 ADRIANA RIDDLE MD Ot 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 03/16/2018 ADRIANA RIDDLE MD Ot E78.00 PURE HYPERCHOLESTEROLEMIA, UNSPECIFIED 03/16/2018 ADRIANA RIDDLE MD Ot I12.9 HYPERTENSIVE CHRONIC KIDNEY DISEASE W ST 03/16/2018 ADRIANA RIDDLE MD, Ot I25.10 ATHSCL HEART DISEASE OF [place] CORONARY 03/16/2018 ADRIANA RIDDLE MD, Ot N18.3 CHRONIC KIDNEY DISEASE, STAGE 3 (MODERAT 03/16/2018 ADRIANA RIDDLE MD Ot Z51.11 ENCOUNTER FOR ANTINEOPLASTIC CHEMOTHERAP 03/16/2018 ADRIANA RIDDLE MD, Ot Z79.82 HEALTH THERAPIST (CURRENT) USE OF ASPIRIN 03/16/2018 ADRIANA RIDDLE MD, Ot Z79.899 OTHER FPC (CURRENT) DRUG THERAPY 03/16/2018 ADRIANA RIDDLE MD, Ot 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 03/16/2018 ADRIANA RIDDLE MD, Ot Z92.3 PERSONAL HISTORY OF IRRADIATION 03/19/2018 Yaritza Joshi 250.80 DIABETES MELLITUS WITH OTHER SPECIFIED MANIFESTATIONS, TYPE II OR UNSPECIFIED TYPE, NOT STATED UNCONTROLLED 03/19/2018 Yaritza Joshi E11.65 TYPE 2 DIABETES MELLITUS WITH HYPERGLYCEMIA 03/19/2018 Yaritza Joshi 250.80 DIABETES MELLITUS WITH OTHER SPECIFIED MANIFESTATIONS, TYPE II OR UNSPECIFIED TYPE, NOT STATED UNCONTROLLED 03/19/2018 Yaritza Joshi E11.65 TYPE 2 DIABETES MELLITUS WITH HYPERGLYCEMIA 04/01/2018 ADRIANA RIDDLE MD, Ot 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 04/01/2018 ADRIANA RIDDLE MD, Ot C91.10 CHRONIC LYMPHOCYTIC LEUK OF B-CELL TYPE 04/01/2018 ADRIANA RIDDLE MD, Ot 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 04/01/2018 ADRIANA RIDDLE MD, Ot E78.00 PURE HYPERCHOLESTEROLEMIA, UNSPECIFIED 04/01/2018 ADRIANA RIDDLE MD Ot I12.9 HYPERTENSIVE CHRONIC KIDNEY DISEASE W ST 04/01/2018 ADRIANA RIDDLE MD, Ot I25.10 ATHSCL HEART DISEASE OF [place] CORONARY 04/01/2018 ADRIANA IRDDLE MD, Ot N18.3 CHRONIC KIDNEY DISEASE, STAGE 3 (MODERAT 04/01/2018 ADRIANA RIDDLE MD Ot Z51.11 ENCOUNTER FOR ANTINEOPLASTIC CHEMOTHERAP 04/01/2018 ADRIANA RDIDLE MD, Ot Z79.82 FPC (CURRENT) USE OF ASPIRIN 04/01/2018 ADRIANA RIDDLE MD Ot Z79.899 OTHER FPC (CURRENT) DRUG THERAPY 04/01/2018 ADRIANA RIDDLE MD Ot 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 04/01/2018 ADRIANA RIDDLE MD Ot Z92.3 PERSONAL HISTORY OF IRRADIATION 04/17/2018 ADRIANA RIDDLE MD Ot 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 04/17/2018 ADRIANA RIDDLE MD Ot C91.10 CHRONIC LYMPHOCYTIC LEUK OF B-CELL TYPE 04/17/2018 ADRIANA RIDDLE MD Ot 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3 PERSONAL HISTORY OF IRRADIATION 04/23/2018 ADRIANA RIDDLE MD Ot 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 04/23/2018 ADRIANA RIDDLE MD Ot C91.10 CHRONIC LYMPHOCYTIC LEUK OF B-CELL TYPE 04/23/2018 ADRIANA RIDDLE MD Ot 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 04/23/2018 ADRAINA RIDDLE MD Ot E78.00 PURE HYPERCHOLESTEROLEMIA, UNSPECIFIED 04/23/2018 ADRIANA RIDDLE MD Ot I12.9 HYPERTENSIVE CHRONIC KIDNEY DISEASE W ST 04/23/2018 ADRIANA RIDDLE MD Ot I25.10 ATHSCL HEART DISEASE OF [place] CORONARY 04/23/2018 ADRIANA RIDDLE MD Ot N18.3 CHRONIC KIDNEY DISEASE, STAGE 3 (MODERAT 04/23/2018 ADRIANA RIDDLE MD Ot Z79.82 FPC (CURRENT) USE OF ASPIRIN 04/23/2018 ADRIANA RIDDLE MD Ot Z79.899 OTHER HEALTH THERAPIST (CURRENT) DRUG THERAPY 04/23/2018 ADRIANA RIDDLE MD Ot 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 04/23/2018 ADRIANA RIDDLE MD Ot Z92.3 PERSONAL HISTORY OF IRRADIATION 06/16/2018 ADRIANA RIDDLE MD Ot 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 06/16/2018 ADRIANA RIDDLE MD Ot C91.10 CHRONIC LYMPHOCYTIC LEUK OF B-CELL TYPE 06/16/2018 ADRIANA RIDDLE MD Ot 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 06/16/2018 ADRIANA RIDDLE MD Ot E78.00 PURE HYPERCHOLESTEROLEMIA, UNSPECIFIED 06/16/2018 ADRIANA RIDDLE MD Ot I12.9 HYPERTENSIVE CHRONIC KIDNEY DISEASE W ST 06/16/2018 ADRIANA RIDDLE MD Ot I25.10 ATHSCL HEART DISEASE OF [place] CORONARY 06/16/2018 ADRIANA RIDDLE MD Ot N18.3 CHRONIC KIDNEY DISEASE, STAGE 3 (MODERAT 06/16/2018 ADRINAA RIDDLE MD Ot Z79.82 FPC (CURRENT) USE OF ASPIRIN 06/16/2018 ADRIANA RIDDLE MD Ot Z79.899 OTHER FPC (CURRENT) DRUG THERAPY 06/16/2018 ADRIANA RIDDLE MD Ot 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 06/16/2018 ADRIANA RIDDLE MD Ot Z92.3 PERSONAL HISTORY OF IRRADIATION 06/17/2018 ADRIANA RIDDLE MD Ot 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 06/17/2018 ADRIANA RIDDLE MD Ot C91.10 CHRONIC LYMPHOCYTIC LEUK OF B-CELL TYPE 06/17/2018 ADRIANA RIDDLE MD Ot 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 06/17/2018 ADRIANA RIDDLE MD Ot E78.00 PURE HYPERCHOLESTEROLEMIA, UNSPECIFIED 06/17/2018 ADRIANA RIDDLE MD Ot I12.9 HYPERTENSIVE CHRONIC KIDNEY DISEASE W ST 06/17/2018 ADRIANA RIDDLE MD Ot I25.10 ATHSCL HEART DISEASE OF [place] CORONARY 06/17/2018 ADRIANA RIDDLE MD Ot N18.3 CHRONIC KIDNEY DISEASE, STAGE 3 (MODERAT 06/17/2018 ADRIANA RIDDLE MD Ot Z79.82 HEALTH THERAPIST (CURRENT) USE OF ASPIRIN 06/17/2018 ADRIANA RIDDLE MD Ot Z79.899 OTHER FPC (CURRENT) DRUG THERAPY 06/17/2018 VENKATESH JOHN, ADRIANA Ot 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 06/17/2018 ADRIANA RIDDLE MD Ot Z92.3 PERSONAL HISTORY OF IRRADIATION 06/17/2018 MALHOTRABLUE Lofton TIMBER TRIMMER Ot 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 06/17/2018 BLUE MALHOTRA TIMBER TRIMMER Ot 204.10 CHRONIC LYMPHOID LEUKEMIA, W/O MENTION A 06/17/2018 BLUE MALHOTRA TIMBER TRIMMER Ot 585.3 CHRONIC KIDNEY DISEASE, STAGE III (MODER 06/17/2018 BLUE MALHOTRA S TIMBER TRIMMER Ot 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 06/17/2018 MALHOTRABLUE Lofton S TIMBER TRIMMER Ot V10.46 HX-PROSTATIC MALIGNANCY 06/17/2018 BLUE MALHOTRA S TIMBER TRIMMER Ot V15.3 HX OF IRRADIATION 06/17/2018 BLUE MALHOTRA S TIMBER TRIMMER Ot V58.66 LONG-TERM (CURRENT) USE OF ASPIRIN 06/17/2018 BLUE MALHOTRA S TIMBER TRIMMER Ot V58.69 OTH MED,LT,CURRENT USE 06/17/2018 BLUE MALHOTRA S TIMBER TRIMMER Ot 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 06/17/2018 BLUE MALHOTRA S TIMBER TRIMMER Ot 204.10 CHRONIC LYMPHOID LEUKEMIA, W/O MENTION A 06/17/2018 BLUE MALHOTRA S TIMBER TRIMMER Ot 585.3 CHRONIC KIDNEY DISEASE, STAGE III (MODER 06/17/2018 BLUE MALHOTRA S TIMBER TRIMMER Ot V10.46 HX-PROSTATIC MALIGNANCY 06/17/2018 MALHOTRABLUE [place] S TIMBER TRIMMER Ot V15.3 HX OF IRRADIATION 06/17/2018 BLUE MALHOTRA S TIMBER TRIMMER Ot V58.66 LONG-TERM (CURRENT) USE OF ASPIRIN 06/17/2018 BLUE MALHOTRA S TIMBER TRIMMER Ot V58.69 OTH MED,LT,CURRENT USE 06/17/2018 BLUE MALHOTRA S TIMBER TRIMMER Ot 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 06/17/2018 MALHOTRABLUE S TIMBER TRIMMER Ot 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 06/17/2018 MALHOTRABLUE [place] S TIMBER TRIMMER Ot 204.10 CHRONIC LYMPHOID LEUKEMIA, W/O MENTION A 06/17/2018 BLUE MALHOTRA S TIMBER TRIMMER Ot 585.3 CHRONIC KIDNEY DISEASE, STAGE III (MODER 06/17/2018 BLUE MALHOTRA TIMBER TRIMMER Ot V15.3 HX OF IRRADIATION 06/17/2018 BLUE MALHOTRA TIMBER TRIMMER Ot V58.66 LONG-TERM (CURRENT) USE OF ASPIRIN 06/17/2018 BLUE MALHOTRA TIMBER TRIMMER Ot V58.69 OTH MED,LT,CURRENT USE 06/17/2018 BLUE MALHOTRA TIMBER TRIMMER Ot 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 06/17/2018 BLUE MALHOTRA TIMBER TRIMMER Ot 204.10 CHRONIC LYMPHOID LEUKEMIA, W/O MENTION A 06/17/2018 BLUE MALHOTRA TIMBER TRIMMER Ot 287.5 THROMBOCYTOPENIA NOS 06/17/2018 BLUE MALHOTRA TIMBER TRIMMER Ot 585.3 CHRONIC KIDNEY DISEASE, STAGE III (MODER 06/17/2018 BLUE MALHOTRA TIMBER TRIMMER Ot V15.3 HX OF IRRADIATION 06/17/2018 BLUE MALHOTRA TIMBER TRIMMER Ot V58.66 LONG-TERM (CURRENT) USE OF ASPIRIN 06/17/2018 BLUE MALHOTRA TIMBER TRIMMER Ot V58.69 OTH MED,LT,CURRENT USE 06/17/2018 BLUE MALHOTRA TIMBER TRIMMER Ot C32.1 MALIGNANT NEOPLASM OF SUPRAGLOTTIS 06/17/2018 BLUE MALHOTRA TIMBER TRIMMER Ot C91.10 CHRONIC LYMPHOCYTIC LEUK OF B-CELL TYPE 06/17/2018 BLUE MALHOTRA TIMBER TRIMMER Ot N18.3 CHRONIC KIDNEY DISEASE, STAGE 3 (MODERAT 06/17/2018 BLUE MALHOTRA TIMBER TRIMMER Ot Z79.82 HEALTH THERAPIST (CURRENT) USE OF ASPIRIN 06/17/2018 BLUE MALHOTRA TIMBER TRIMMER Ot Z92.3 PERSONAL HISTORY OF IRRADIATION 06/17/2018 BLUE MALHOTRA TIMBER TRIMMER Ot C32.1 MALIGNANT NEOPLASM OF SUPRAGLOTTIS 06/17/2018 BLUE MALHOTRA TIMBER TRIMMER Ot C91.10 CHRONIC LYMPHOCYTIC LEUK OF B-CELL TYPE 06/17/2018 BLUE MALHOTRA TIMBER TRIMMER Ot N18.3 CHRONIC KIDNEY DISEASE, STAGE 3 (MODERAT 06/17/2018 BLUE MALHOTRA TIMBER TRIMMER Ot Z79.82 FPC (CURRENT) USE OF ASPIRIN 06/17/2018 BLUE MALHOTRA TIMBER TRIMMER Ot Z92.3 PERSONAL HISTORY OF IRRADIATION 06/17/2018 LBUE MALHOTRA Ot C91.10 CHRONIC LYMPHOCYTIC LEUK OF B-CELL TYPE 06/17/2018 KRISTINE ZEE MD Ot C61 MALIGNANT NEOPLASM OF PROSTATE 06/17/2018 EMMA JOHN, KRISTINE Juárez Ot R16.1 SPLENOMEGALY, NOT ELSEWHERE CLASSIFIED 06/17/2018 KRISTINE ZEE MD Ot R59.1 GENERALIZED ENLARGED LYMPH NODES 06/17/2018 BLUE MALHOTRA Ot C91.10 CHRONIC LYMPHOCYTIC LEUK OF B-CELL TYPE 06/17/2018 ADRIANA RIDDLE MD Ot C91.10 CHRONIC LYMPHOCYTIC LEUK OF B-CELL TYPE 06/17/2018 ADRIANA RIDDLE MD Ot E04.1 NONTOXIC SINGLE THYROID NODULE 06/17/2018 ADRIANA RIDDLE MD Ot 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 06/17/2018 ADRIANA RIDDLE MD Ot C91.10 CHRONIC LYMPHOCYTIC LEUK OF B-CELL TYPE 06/17/2018 ADRIANA RIDDLE MD Ot 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 06/17/2018 ADRIANA RIDDLE MD Ot E78.00 PURE HYPERCHOLESTEROLEMIA, UNSPECIFIED 06/17/2018 ADRIANA RIDDLE MD Ot I12.9 HYPERTENSIVE CHRONIC KIDNEY DISEASE W ST 06/17/2018 ADRIANA RIDDLE MD Ot I25.10 ATHSCL HEART DISEASE OF [place] CORONARY 06/17/2018 ADRIANA RIDDLE MD Ot N18.3 CHRONIC KIDNEY DISEASE, STAGE 3 (MODERAT 06/17/2018 ADRIANA RIDDLE MD Ot Z79.82 FPC (CURRENT) USE OF ASPIRIN 06/17/2018 ADRIANA RIDDLE MD Ot Z79.899 OTHER FPC (CURRENT) DRUG THERAPY 06/17/2018 ADRIANA RIDDLE MD Ot 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 06/17/2018 ADRIANA RIDDLE MD Ot Z92.3 PERSONAL HISTORY OF IRRADIATION 06/18/2018 ADRIANA RIDDLE MD Ot 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 06/18/2018 ADRIANA RIDDLE MD Ot C91.10 CHRONIC LYMPHOCYTIC LEUK OF B-CELL TYPE 06/18/2018 ADRIANA RIDDLE MD Ot 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 06/18/2018 ADRIANA RIDDLE MD Ot E78.00 PURE HYPERCHOLESTEROLEMIA, UNSPECIFIED 06/18/2018 ADRIANA RIDDLE MD Ot I12.9 HYPERTENSIVE CHRONIC KIDNEY DISEASE W ST 06/18/2018 ADRIANA RIDDLE MD Ot I25.10 ATHSCL HEART DISEASE OF [place] CORONARY 06/18/2018 ADRIANA RIDDLE MD Ot N18.3 CHRONIC KIDNEY DISEASE, STAGE 3 (MODERAT 06/18/2018 ADRIANA RIDDLE MD Ot Z79.82 FPC (CURRENT) USE OF ASPIRIN 06/18/2018 ADRIANA RIDDLE MD Ot Z79.899 OTHER HEALTH THERAPIST (CURRENT) DRUG THERAPY 06/18/2018 ADRIANA RIDDLE MD Ot 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 06/18/2018 ADRIANA RIDDLE MD Ot Z92.3 PERSONAL HISTORY OF IRRADIATION 06/23/2018 ADRIANA RIDDLE MD Ot 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 06/23/2018 ADRIANA RIDDLE MD Ot C91.10 CHRONIC LYMPHOCYTIC LEUK OF B-CELL TYPE 06/23/2018 ADRIANA RIDDLE MD Ot 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 06/23/2018 ADRIANA RIDDLE MD Ot E78.00 PURE HYPERCHOLESTEROLEMIA, UNSPECIFIED 06/23/2018 ADRIANA RIDDLE MD Ot I12.9 HYPERTENSIVE CHRONIC KIDNEY DISEASE W ST 06/23/2018 ADIRANA RIDDLE MD Ot I25.10 ATHSCL HEART DISEASE OF [place] CORONARY 06/23/2018 ADRIANA RIDDLE MD Ot N18.3 CHRONIC KIDNEY DISEASE, STAGE 3 (MODERAT 06/23/2018 ADRIANA RIDDLE MD Ot Z79.82 HEALTH THERAPIST (CURRENT) USE OF ASPIRIN 06/23/2018 ADRIANA RIDDLE MD Ot Z79.899 OTHER HEALTH THERAPIST (CURRENT) DRUG THERAPY 06/23/2018 ADRIANA RIDDLE MD Ot 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 06/23/2018 ADRIANA RIDDLE MD Ot Z92.3 PERSONAL HISTORY OF IRRADIATION 2018 Yaritza Joshi W 250.80 DIABETES MELLITUS WITH OTHER SPECIFIED MANIFESTATIONS, TYPE II OR UNSPECIFIED TYPE, NOT STATED UNCONTROLLED 2018 Yaritza Joshi W E11.65 TYPE 2 DIABETES MELLITUS WITH HYPERGLYCEMIA 07/14/2018 ADRIANA RIDDLE MD Ot 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 07/14/2018 ADRIANA RIDDLE MD Ot C91.10 CHRONIC LYMPHOCYTIC LEUK OF B-CELL TYPE 07/14/2018 ADRIANA RIDDLE MD Ot 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 07/14/2018 ADRIANA RIDDLE MD Ot E78.00 PURE HYPERCHOLESTEROLEMIA, UNSPECIFIED 07/14/2018 ADRIANA RIDDLE MD Ot I12.9 HYPERTENSIVE CHRONIC KIDNEY DISEASE W ST 07/14/2018 ADRIANA RIDDLE MD Ot I25.10 ATHSCL HEART DISEASE OF [place] CORONARY 07/14/2018 ADRIANA RIDDLE MD Ot N18.3 CHRONIC KIDNEY DISEASE, STAGE 3 (MODERAT 07/14/2018 ADRIANA RIDDLE MD Ot Z79.82 HEALTH THERAPIST (CURRENT) USE OF ASPIRIN 07/14/2018 ADRIANA RIDDLE MD Ot Z79.899 OTHER HEALTH THERAPIST (CURRENT) DRUG THERAPY 07/14/2018 ADRIANA RIDDLE MD Ot 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 07/14/2018 ADRIANA RIDDLE MD Ot Z92.3 PERSONAL HISTORY OF IRRADIATION 07/17/2018 ADRIANA RIDDLE MD Ot 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 07/17/2018 ADRIANA RIDDLE MD Ot C91.10 CHRONIC LYMPHOCYTIC LEUK OF B-CELL TYPE 07/17/2018 ADRIANA RIDDLE MD Ot 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 07/17/2018 ADRIANA RIDDLE MD Ot E78.00 PURE HYPERCHOLESTEROLEMIA, UNSPECIFIED 07/17/2018 ADRIANA RIDDLE MD Ot I12.9 HYPERTENSIVE CHRONIC KIDNEY DISEASE W ST 07/17/2018 ADRIANA RIDDLE MD Ot I25.10 ATHSCL HEART DISEASE OF [place] CORONARY 07/17/2018 ADRIANA RIDDLE MD Ot N18.3 CHRONIC KIDNEY DISEASE, STAGE 3 (MODERAT 07/17/2018 ADRIANA RIDDLE MD Ot Z79.82 FPC (CURRENT) USE OF ASPIRIN 07/17/2018 ADRIANA RIDDLE MD Ot Z79.899 OTHER HEALTH THERAPIST (CURRENT) DRUG THERAPY 07/17/2018 ADRIANA RIDDLE MD Ot 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 07/17/2018 ADRIANA RIDDLE MD Ot Z92.3 PERSONAL HISTORY OF IRRADIATION 08/12/2018 ADRIANA RIDDLE MD Ot 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 08/12/2018 ADRIANA RIDDLE MD Ot C91.10 CHRONIC LYMPHOCYTIC LEUK OF B-CELL TYPE 08/12/2018 ADRIANA RIDDLE MD Ot 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 08/12/2018 ADRIANA RIDDLE MD Ot E78.00 PURE HYPERCHOLESTEROLEMIA, UNSPECIFIED 08/12/2018 ADRIANA RIDDLE MD Ot I12.9 HYPERTENSIVE CHRONIC KIDNEY DISEASE W ST 08/12/2018 ADRIANA RIDDLE MD Ot I25.10 ATHSCL HEART DISEASE OF [place] CORONARY 08/12/2018 ADRIANA RIDDLE MD Ot N18.3 CHRONIC KIDNEY DISEASE, STAGE 3 (MODERAT 08/12/2018 ADRIANA RIDDLE MD Ot Z79.82 HEALTH THERAPIST (CURRENT) USE OF ASPIRIN 08/12/2018 ADRIANA RIDDLE MD Ot Z79.899 OTHER FPC (CURRENT) DRUG THERAPY 08/12/2018 ADRIANA RIDDLE MD Ot 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 08/12/2018 ADRIANA RIDDLE MD Ot Z92.3 PERSONAL HISTORY OF IRRADIATION 08/12/2018 ADRIANA RIDDLE MD Ot 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 08/12/2018 ADRIANA RIDDLE MD Ot C91.10 CHRONIC LYMPHOCYTIC LEUK OF B-CELL TYPE 08/12/2018 ADRIANA RIDDLE MD Ot 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 08/12/2018 ADRIANA RIDDLE MD Ot E78.00 PURE HYPERCHOLESTEROLEMIA, UNSPECIFIED 08/12/2018 ADRIANA RIDDLE MD Ot I12.9 HYPERTENSIVE CHRONIC KIDNEY DISEASE W ST 08/12/2018 ADRIANA RIDDLE MD Ot I25.10 ATHSCL HEART DISEASE OF [place] CORONARY 08/12/2018 ADRIANA RIDDLE MD Ot N18.3 CHRONIC KIDNEY DISEASE, STAGE 3 (MODERAT 08/12/2018 ADRIANA RIDDLE MD Ot Z79.82 FPC (CURRENT) USE OF ASPIRIN 08/12/2018 ADRIANA RIDDLE MD Ot Z79.899 OTHER HEALTH THERAPIST (CURRENT) DRUG THERAPY 08/12/2018 ADRIANA RIDDLE MD Ot 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 08/12/2018 ADRIANA RIDDLE MD Ot Z92.3 PERSONAL HISTORY OF IRRADIATION 09/15/2018 ADRIANA RIDDLE MD Ot 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 09/15/2018 ADRIANA RIDDLE MD Ot C91.10 CHRONIC LYMPHOCYTIC LEUK OF B-CELL TYPE 09/15/2018 ADRIANA RIDDLE MD Ot 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 09/15/2018 ADRIANA RIDDLE MD Ot E78.00 PURE HYPERCHOLESTEROLEMIA, UNSPECIFIED 09/15/2018 ADRIANA RIDDLE MD Ot I12.9 HYPERTENSIVE CHRONIC KIDNEY DISEASE W ST 09/15/2018 ADRIANA RIDDLE MD Ot I25.10 ATHSCL HEART DISEASE OF [place] CORONARY 09/15/2018 ADRIANA RIDDLE MD Ot N18.3 CHRONIC KIDNEY DISEASE, STAGE 3 (MODERAT 09/15/2018 ADRIANA RIDDLE MD Ot Z79.82 HEALTH THERAPIST (CURRENT) USE OF ASPIRIN 09/15/2018 ADRIANA RIDDLE MD Ot Z79.899 OTHER FPC (CURRENT) DRUG THERAPY 09/15/2018 ADRIANA RIDDLE MD Ot 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 09/15/2018 ADRIANA RIDDLE MD Ot Z92.3 PERSONAL HISTORY OF IRRADIATION 09/17/2018 ADRIANA RIDDLE MD Ot 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 09/17/2018 ADRIANA RIDDLE MD Ot C91.10 CHRONIC LYMPHOCYTIC LEUK OF B-CELL TYPE 09/17/2018 ADRIANA RIDDLE MD Ot 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3 PERSONAL HISTORY OF IRRADIATION 10/02/2018 ADRIANA RIDDLE MD Ot 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 10/02/2018 ADRIANA RIDDLE MD Ot C91.10 CHRONIC LYMPHOCYTIC LEUK OF B-CELL TYPE 10/02/2018 ADRIANA RIDDLE MD Ot 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 10/02/2018 ADRIANA RIDDLE MD Ot E78.00 PURE HYPERCHOLESTEROLEMIA, UNSPECIFIED 10/02/2018 ADRIANA RIDDLE MD Ot I12.9 HYPERTENSIVE CHRONIC KIDNEY DISEASE W ST 10/02/2018 ADRIANA RIDDLE MD Ot I25.10 ATHSCL HEART DISEASE OF [place] CORONARY 10/02/2018 ADRIANA RIDDLE MD Ot N18.3 CHRONIC KIDNEY DISEASE, STAGE 3 (MODERAT 10/02/2018 ADRIANA RIDDLE MD Ot Z79.82 HEALTH THERAPIST (CURRENT) USE OF ASPIRIN 10/02/2018 ADRIANA RIDDLE MD Ot Z79.899 OTHER FPC (CURRENT) DRUG THERAPY 10/02/2018 ADRIANA RIDDLE MD Ot 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 10/02/2018 ADRIANA RIDDLE MD Ot Z92.3 PERSONAL HISTORY OF IRRADIATION 10/19/2018 ADRIANA RIDDLE MD Ot 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 10/19/2018 ADRIANA RIDDLE MD Ot C91.10 CHRONIC LYMPHOCYTIC LEUK OF B-CELL TYPE 10/19/2018 ADRIANA RIDDLE MD Ot 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 10/19/2018 ADRIANA RIDDLE MD Ot E78.00 PURE HYPERCHOLESTEROLEMIA, UNSPECIFIED 10/19/2018 ADRIANA RIDDLE MD Ot I12.9 HYPERTENSIVE CHRONIC KIDNEY DISEASE W ST 10/19/2018 ADRIANA RIDDLE MD Ot I25.10 ATHSCL HEART DISEASE OF [place] CORONARY 10/19/2018 ADRIANA RIDDLE MD Ot N18.3 CHRONIC KIDNEY DISEASE, STAGE 3 (MODERAT 10/19/2018 ADRIANA RIDDLE MD Ot Z79.82 HEALTH THERAPIST (CURRENT) USE OF ASPIRIN 10/19/2018 ADRIANA RIDDLE MD Ot Z79.899 OTHER FPC (CURRENT) DRUG THERAPY 10/19/2018 ADRIANA RIDDLE MD Ot 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 10/19/2018 ADRIANA RIDDLE MD Ot Z92.3 PERSONAL HISTORY OF IRRADIATION 10/20/2018 ADRIANA RIDDLE MD Ot 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899 OTHER HEALTH THERAPIST (CURRENT) DRUG THERAPY 10/20/2018 ADRIANA RIDDLE MD Ot 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 10/20/2018 ADRIANA RIDDLE MD Ot Z92.3 PERSONAL HISTORY OF IRRADIATION 10/23/2018 ADRIANA RIDDLE MD Ot 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 10/23/2018 ADRIANA RIDDLE MD, Ot C91.10 CHRONIC LYMPHOCYTIC LEUK OF B-CELL TYPE 10/23/2018 ADRIANA RIDDLE MD Ot 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 10/23/2018 ADRIANA RIDDLE MD Ot E78.00 PURE HYPERCHOLESTEROLEMIA, UNSPECIFIED 10/23/2018 ADRIANA RIDDLE MD Ot I12.9 HYPERTENSIVE CHRONIC KIDNEY DISEASE W ST 10/23/2018 ADRIANA RIDDLE MD Ot I25.10 ATHSCL HEART DISEASE OF [place] CORONARY 10/23/2018 ADRIANA RIDDLE MD Ot N18.3 CHRONIC KIDNEY DISEASE, STAGE 3 (MODERAT 10/23/2018 ADRIANA RIDDLE MD, Ot Z79.82 HEALTH THERAPIST (CURRENT) USE OF ASPIRIN 10/23/2018 ADRIANA RIDDLE MD, Ot Z79.899 OTHER FPC (CURRENT) DRUG THERAPY 10/23/2018 ADRIANA RIDDLE MD Ot 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 Results Test Result Range CBC with Manual Diff - 11/02/16 13:43 Band 1 Hct 33.9 % 42.0-52.0 Hgb 11.5 g/dL 14.0-17.0 Lymph 94 MCH 36.2 pg 27.0-31.2 MCHC 33.9 g/dL 32.0-36.0 MCV 106.6 fL 80.0-97.0 Hope 4 Plt 89 K/uL 150-400 RBC 3.18 M/uL 4.20-5.40 WBC 37.56 K/uL 5.00-10.00 Blood Culture - 11/02/16 14:09 PRELIM CULTURE RESULTS Blood Culture Negative, No Growth Day 1 FINAL CULTURE RESULTS Blood Culture Negative, No Growth Day 5 MEDIA PLATED Setup at 14:43 on 11/02/2016 Blood Culture Media Position A-13 CULTURE SOURCE left ac Blood Culture - 11/02/16 14:09 PRELIM CULTURE RESULTS Blood Culture Negative, No Growth Day 1 FINAL CULTURE RESULTS Blood Culture Negative, No Growth Day 5 MEDIA PLATED Setup at 14:44 on 11/02/2016 A-14 CULTURE SOURCE left forearm BNP - 11/02/16 14:37 BNP 423.60 pg/ml 0.00-100.00 Influenza - 11/02/16 15:04 Influenza NEGATIVE FOR A and B 0.00-0.00 Urinalysis - 11/02/16 15:04 Icotest N/A Negative Urine Volume Urine Volume Sufficient (10mL) Urine-Appearance Cloudy Clear Urine-Bacteria 3+ Urine-Bilirubin Negative Negative Urine-Blood 3+ Negative Urine-Color Yellow Colorless-Lt. Yellow Urine-Epithelial Cells 0-5/HPF Urine-Glucose 2+ Negative Urine-Ketones Negative Negative Urine-Leukocytes 1+ Negative Urine-Nitrite Positive Negative Urine-Other Culture to follow Urine-pH 6.0 5-8.5 Urine-Protein 2+ Negative Urine-Specific Jean 1.025 1.000-1.030 Urine-WBC TNTC Urobilinogen 0.2 E.U./dL 0.2-1.0 Urine Culture - 11/02/16 15:04 PRELIM CULTURE RESULTS >100,000 Gram Negative Lactose Fish Peddler [id number] / ID to Follow CULTURE SOURCE void Sensi - 11/02/16 15:04 FINAL CULTURE RESULTS Escherichia coli (Isolate 1) Ampicillin/Sulbactam <=8/4 Ampicillin <=8 Amoxicillin/K Clavulanate <=8/4 Ceftriaxone <=8 Ciprofloxacin <=1 Nitrofurantoin <=32 Gentamicin <=4 Levofloxacin <=2 Trimethoprim/ Sulfamethoxazole <=2/38 Tetracycline <=4 Amikacin <=16 Aztreonam <=8 Ceftazidime <=1 Ceftazidime/K Clavulanate <=0.25 Cephalothin <=8 Cefotaxime <=2 Cefotaxime/K Clavulanate <=0.5 Cefoxitin <=8 Cefazolin <=8 Cefepime <=8 Cefuroxime <=4 Ertapenem <=1 Imipenem <=4 Meropenem <=4 Piperacillin/Tazobactam <=16 Piperacillin <=16 Tigecycline <=2 Tobramycin <=4 CBC with Auto Diff - 11/03/16 23:20 Hct 28.6 % 42.0-52.0 Hgb 9.5 g/dL 14.0-17.0 Lym 91.00 K/uL 0.60-3.40 MCH 34.9 pg 27.0-31.2 MCHC 33.2 g/dL 32.0-36.0 MCV 105.1 fL 80.0-97.0 MPV 10.6 fL 7.4-10.0 Plt 51 K/uL 150-400 RBC 2.72 M/uL 4.20-5.40 RDW 15.9 % 11.6-14.8 WBC 26.06 K/uL 5.00-10.00 Hope 7.00 manual diff performed K/uL 2.00-6.90 [place] 2.0 K/uL 0.0-0.9 Blood Culture - 11/03/16 23:20 PRELIM CULTURE RESULTS Blood Culture Negative, No Growth Day 1 FINAL CULTURE RESULTS Blood Culture Negative, No Growth Day 5 MEDIA PLATED 11.03.2016 @ 23:25 Blood Culture Media Position C50 CULTURE SOURCE Right arm Blood Culture - 11/03/16 23:35 PRELIM CULTURE RESULTS Blood Culture Negative, No Growth Day 1 FINAL CULTURE RESULTS Blood Culture Negative, No Growth Day 5 MEDIA PLATED 11.03.2016 @ 23:20 Blood Culture Media Position C44 CULTURE SOURCE Right brachial BNP - 11/04/16 07:10 BNP 632.50 pg/ml 0.00-100.00 BMP - 11/05/16 06:58 Anion Gap 15 6-14 BUN 23 mg/dL 5-25 Calcium 8.9 mg/dL 8.3-10.4 Chloride 101 mmol/L 95-114 CO2 26 mEq/L 22-33 Creat 1.12 mg/dL 0.50-1.50 eGFR 63 mL/min/1.73m2 >59 Glucose 257 mg/dL 70-110 Osmo 297 280-295 Potassium 4.4 mmol/L 3.5-5.3 Sodium 138 mmol/L 134-148 D-Dimer - 11/05/16 08:48 DDimer 481.00 ng/mL 21.00-229.00 CBC with Auto Diff - 11/06/16 06:55 Eos 0.0 K/uL 0.0-0.7 Hct 33.4 % 42.0-52.0 Hgb 10.7 g/dL 14.0-17.0 Lym 92.00 K/uL 0.60-3.40 MCH 34.2 pg 27.0-31.2 MCHC 32.0 g/dL 32.0-36.0 MCV 106.7 fL 80.0-97.0 MPV 10.9 fL 7.4-10.0 Plt 59 K/uL 150-400 RBC 3.13 M/uL 4.20-5.40 RDW 15.8 % 11.6-14.8 WBC 30.56 K/uL 5.00-10.00 Hope 8.00 manual differential K/uL 2.00-6.90 [place] 0.0 K/uL 0.0-0.9 Baso 0.0 K/uL 0.0-0.2 CBC with Auto Diff - 11/07/16 06:55 Eos 0.0 K/uL 0.0-0.7 Hct 31.7 % 42.0-52.0 Hgb 10.8 g/dL 14.0-17.0 Lym 93.00 K/uL 0.60-3.40 MCH 35.5 pg 27.0-31.2 MCHC 34.1 g/dL 32.0-36.0 MCV 104.3 fL 80.0-97.0 MPV 10.3 fL 7.4-10.0 Plt 75 K/uL 150-400 RBC 3.04 M/uL 4.20-5.40 RDW 15.6 % 11.6-14.8 WBC 33.68 K/uL 5.00-10.00 Hope 7.00 Manual differential K/uL 2.00-6.90 [place] 0.0 K/uL 0.0-0.9 Baso 0.0 K/uL 0.0-0.2 Urinalysis - 11/25/16 15:45 Icotest N/A Negative Urine Volume Urine Volume Sufficient (10mL) Urine-Appearance Slightly Cloudy Clear Urine-Bacteria 3+ Urine-Bilirubin Negative Negative Urine-Blood 2+ Negative Urine-Color Yellow Colorless-Lt. Yellow Urine-Glucose Negative Negative Urine-Ketones Negative Negative Urine-Leukocytes 1+ Negative Urine-Nitrite Positive Negative Urine-Other Culture to follow Urine-pH 5.5 5-8.5 Urine-Protein 2+ Negative Urine-RBC 10-20/HPF Urine-Specific Jean 1.015 1.000-1.030 Urine-WBC 20-40/HPF Urobilinogen 1.0 E.U./dL 0.2-1.0 Urine Culture - 11/25/16 15:45 PRELIM CULTURE RESULTS >100,000 Gram Negative RODRIGO / ID to Follow MEDIA PLATED Setup at 17:20 on 11/25/2016 CULTURE SOURCE clean catch Sensi - 11/25/16 15:45 FINAL CULTURE RESULTS Escherichia coli (Isolate 1) Ampicillin/Sulbactam <=8/4 Ampicillin <=8 Amoxicillin/K Clavulanate <=8/4 Ceftriaxone <=8 Ciprofloxacin <=1 Nitrofurantoin <=32 Gentamicin <=4 Levofloxacin <=2 Trimethoprim/ Sulfamethoxazole <=2/38 Tetracycline <=4 Amikacin <=16 Aztreonam <=8 Ceftazidime <=1 Ceftazidime/K Clavulanate <=0.25 Cephalothin <=8 Cefotaxime <=2 Cefotaxime/K Clavulanate <=0.5 Cefoxitin <=8 Cefazolin <=8 Cefepime <=8 Cefuroxime <=4 Ertapenem <=1 Imipenem <=4 Meropenem <=4 Piperacillin/Tazobactam <=16 Piperacillin <=16 Tigecycline <=2 Tobramycin <=4 Manual Differential - 11/29/16 14:22 Band 0 Baso% 0.00 % 0.00-2.50 Eos% 0.0 % 0.0-7.0 Lym% 4.0 % 10.0-50.0 [place] 0 [place]% 1.0 % 0.0-12.0 Hope% 7.0 % 37.0-80.0 Pro 4 RBC morph Normal Hugo Lym 84 WBC 28.38 K/uL 5.00-10.00 Manual Differential - 12/14/16 14:34 Lym% 94.0 % 10.0-50.0 [place]% 2.0 % 0.0-12.0 Hope% 4.0 % 37.0-80.0 RBC morph Normal WBC 25.92 K/uL 5.00-10.00 CBC with Auto Diff - 12/14/16 15:08 Hct 30.2 % 42.0-52.0 Hgb 9.7 g/dL 14.0-17.0 MCH 34.6 pg 27.0-31.2 MCHC 32.1 g/dL 32.0-36.0 MCV 107.9 fL 80.0-97.0 MPV 9.7 fL 7.4-10.0 Plt 145 K/uL 150-400 RBC 2.80 M/uL 4.20-5.40 RDW 15.8 % 11.6-14.8 WBC 25.92 K/uL 5.00-10.00 Urine Culture - 12/14/16 15:13 PRELIM CULTURE RESULTS >100,000 Gram Negative RODRIGO / ID to Follow CULTURE SOURCE URINE CULTURE Sensi - 12/14/16 15:13 FINAL CULTURE RESULTS Escherichia coli (Isolate 1) Ampicillin/Sulbactam <=8/4 Ampicillin <=8 Amoxicillin/K Clavulanate <=8/4 Ceftriaxone <=8 Ciprofloxacin <=1 Nitrofurantoin <=32 Gentamicin <=4 Levofloxacin <=2 Trimethoprim/ Sulfamethoxazole <=2/38 Tetracycline <=4 Amikacin <=16 Aztreonam <=8 Ceftazidime <=1 Ceftazidime/K Clavulanate <=0.25 Cephalothin <=8 Cefotaxime <=2 Cefotaxime/K Clavulanate <=0.5 Cefoxitin <=8 Cefazolin <=8 Cefepime <=8 Cefuroxime <=4 Ertapenem <=1 Imipenem <=4 Meropenem <=4 Piperacillin/Tazobactam <=16 Piperacillin <=16 Tigecycline <=2 Tobramycin <=4 Folate - 03/07/17 16:28 Folate 9.50 ng/mL 7.00-31.40 BMP - 06/09/17 09:39 Anion Gap 18 6-14 BUN 18 mg/dL 5-25 Calcium 8.7 mg/dL 8.3-10.4 Chloride 102 mmol/L 95-114 CO2 25 mEq/L 22-33 Creat 1.03 mg/dL 0.50-1.50 eGFR 69 mL/min/1.73m2 >59 Glucose 180 mg/dL 70-110 Osmo 297 280-295 Potassium 3.6 mmol/L 3.5-5.3 Sodium 141 mmol/L 134-148 Uric Acid - 06/09/17 09:39 Uric Acid 9.6 mg/dL 2.6-7.2 Uric Acid - 06/16/17 10:15 Uric Acid 8.9 mg/dL 2.6-7.2 BMP - 07/07/17 10:49 Anion Gap 14 6-14 BUN 19 mg/dL 5-25 Calcium 9.1 mg/dL 8.3-10.4 Chloride 105 mmol/L 95-114 CO2 26 mEq/L 22-33 Creat 1.19 mg/dL 0.50-1.50 eGFR 58 mL/min/1.73m2 >59 Glucose 186 mg/dL 70-110 Osmo 298 280-295 Potassium 4.1 mmol/L 3.5-5.3 Sodium 141 mmol/L 134-148 Uric Acid - 07/07/17 10:49 Uric Acid 9.1 mg/dL 2.6-7.2 Microalbumin - 07/14/17 11:52 Microalb 60.0 mg/L 0.0-20.0 CBC with Auto Diff - 08/04/17 09:55 Baso% 0.00 % 0.00-2.50 Eos 0.0 K/uL 0.0-0.7 Eos% 0.1 % 0.0-7.0 Hct 31.0 % 42.0-52.0 Hgb 10.2 g/dL 14.0-17.0 Lym 23.42 K/uL 0.60-3.40 Lym% 89.4 % 10.0-50.0 MCH 36.7 pg 27.0-31.2 MCHC 32.9 g/dL 32.0-36.0 MCV 111.5 fL 80.0-97.0 [place]% 6.9 % 0.0-12.0 MPV 10.7 fL 7.4-10.0 Hope% 3.6 % 37.0-80.0 Plt 70 K/uL 150-400 RBC 2.78 M/uL 4.20-5.40 RDW 17.3 % 11.6-14.8 WBC 26.20 K/uL 5.00-10.00 Hope 0.92 K/uL 2.00-6.90 [place] 1.8 K/uL 0.0-0.9 Baso 0.0 K/uL 0.0-0.2 Protime - 08/26/17 10:21 INR 2.2 1.0-4.0 Protime 25.8 Sec 9.9-12.8 Protime - 09/02/17 11:51 INR 2.6 1.0-4.0 Protime 30.9 Sec 9.9-12.8 Protime - 09/09/17 08:52 INR 2.2 1.0-4.0 Protime 26.1 Sec 9.9-12.8 Uric Acid - 09/15/17 08:43 Uric Acid 7.1 mg/dL 2.6-7.2 Urinalysis - 09/21/17 18:20 Icotest N/A Negative Urine Crystals Amorphous material: few/HPF Urine Volume Urine Volume Sufficient (10mL) Urine-Appearance Slightly Cloudy Clear Urine-Bacteria Negative Urine-Bilirubin Negative Negative Urine-Blood Trace-intact Negative Urine-Color Yellow Colorless-Lt. Yellow Urine-Epithelial Cells 0-5/HPF Urine-Glucose Negative Negative Urine-Ketones Negative Negative Urine-Leukocytes Negative Negative Urine-Nitrite Negative Negative Urine-Other Urine Saved if Culture Needed (48hrs from time of collection) Urine-pH 5.5 5-8.5 Urine-Protein 1+ Negative Urine-RBC 2-5/HPF Urine-Specific Jean 1.015 1.000-1.030 Urine-WBC 0-2/HPF Urobilinogen 1.0 0.2-1.0 Mycoplasma - 09/21/17 19:07 Mycoplasma Negative Negative Influenza - 09/21/17 19:17 Influenza NEGATIVE FOR A and B 0.00-0.00 Protime - 09/21/17 20:09 INR 4.2 Result Verified by Repeat Analysis 1.0-4.0 Protime 49.2 Sec 9.9-12.8 Lactic Acid - 09/21/17 20:42 Lactic Acid 9.2 mg/dL 4.5-19.8 Urine Culture - 09/21/17 20:42 PRELIM CULTURE RESULTS <10,000 Gram Positive Mixed Tamia [id number] Skin Contaminant FINAL CULTURE RESULTS <10,000 Gram Positive Mixed Tamia [id number] Skin Contaminant [id number] Further Workup done MEDIA PLATED Setup at 21:01 on 09/21/2017 CULTURE SOURCE voided [id number]\ Cardiac Panel - 09/21/17 21:03 CK 34 U/L 26-174 CK-MB 1.0 ng/ml 0.0-9.2 Myoglobin 47.8 ng/ml 1.6-154.9 Troponin <0.020 ng/mL 0.0-0.4 Blood Culture - 09/21/17 21:03 PRELIM CULTURE RESULTS Blood Culture Negative, No Growth Day 1 FINAL CULTURE RESULTS Blood Culture Negative, No Growth Day 5 MEDIA PLATED Setup at 21:18 on 09/21/[id number] Culture Media Position B37 CULTURE SOURCE Right arm Blood Culture - 09/21/17 21:10 PRELIM CULTURE RESULTS Blood Culture Negative, No Growth Day 1 FINAL CULTURE RESULTS Blood Culture Negative, No Growth Day 5 MEDIA PLATED Setup at 21:18 on 09/21/[id number] Culture Media Position c46 CULTURE SOURCE left arm Cardiac Panel - 09/22/17 00:06 CK 37 U/L 26-174 CK-MB 1.0 ng/ml 0.0-9.2 Myoglobin 52.3 ng/ml 1.6-154.9 Troponin <0.020 ng/mL 0.0-0.4 VIT B-12 - 09/22/17 05:15 Vitamin B12 267.00 pg/mL 213.00-816.00 Cardiac Panel - 09/22/17 05:25 CK 41 U/L 26-174 CK-MB 0.8 ng/ml 0.0-9.2 Myoglobin 83.1 ng/ml 1.6-154.9 Troponin <0.020 ng/mL 0.0-0.4 BMP - 09/23/17 07:00 Anion Gap 15 6-14 BUN 19 mg/dL 5-25 Calcium 8.4 mg/dL 8.3-10.4 Chloride 99 mmol/L 95-114 CO2 25 mEq/L 22-33 Creat 1.10 mg/dL 0.50-1.50 eGFR 64 mL/min/1.73m2 >59 Glucose 187 mg/dL 70-110 Osmo 288 280-295 Potassium 3.3 mmol/L 3.5-5.3 Sodium 136 mmol/L 134-148 Blood Culture - 09/23/17 13:55 PRELIM CULTURE RESULTS Blood Culture Negative, No Growth Day 1 FINAL CULTURE RESULTS Blood Culture Negative, No Growth Day 5 MEDIA PLATED Setup at 14:20 on 09/23/2017 Blood Culture Media Position A-12 CULTURE SOURCE AC Blood Culture - 09/23/17 14:10 PRELIM CULTURE RESULTS Blood Culture Negative, No Growth Day 1 FINAL CULTURE RESULTS Blood Culture Negative, No Growth Day 5 MEDIA PLATED Setup at 14:20 on 09/23/2017 Blood Culture Media Position B-32 CULTURE SOURCE Left AC Cardiac Panel - 09/24/17 07:00 CK 43 U/L 26-174 CK-MB 0.8 ng/ml 0.0-9.2 Myoglobin 56.9 ng/ml 1.6-154.9 Troponin <0.020 ng/mL 0.0-0.4 Sputum Culture - 09/24/17 21:03 PRELIM CULTURE RESULTS Abundant Gram Positive Mixed [id number] No Pathogen Isolated FINAL CULTURE RESULTS Abundant Gram Positive Mixed Tamia. NO Pathogens Isolated at 48 hrs. MEDIA PLATED Setup at 21:30 on 09/24/2017 IFOBT Occult Blood - 09/24/17 22:33 IFOBT Occult Blood NEGATIVE Negative BNP - 09/25/17 07:00 BNP 634.70 pg/ml 0.00-100.00 BNP - 09/26/17 06:57 BNP 775.80 pg/ml 0.00-100.00 CBC with Manual Diff - 09/27/17 07:00 Hct 27.3 % 42.0-52.0 Hgb 8.7 g/dL 14.0-17.0 Lymph 93 Macro 1+ MCH 36.1 pg 27.0-31.2 MCHC 31.9 g/dL 32.0-36.0 MCV 113.3 fL 80.0-97.0 [place] 2 Hope 4 Plt 40 Result Verified by Repeat Analysis K/uL 150-400 Pro 1 RBC 2.41 M/uL 4.20-5.40 WBC 41.04 Result Verified by Repeat Analysis K/uL 5.00- 10.00 BNP - 09/29/17 07:00 BNP 712.30 pg/ml 0.00-100.00 BNP - 09/30/17 06:58 BNP 697.10 pg/ml 0.00-100.00 CBC with Auto Diff - 10/01/17 07:23 Baso% 0.00 % 0.00-2.50 Eos 0.0 K/uL 0.0-0.7 Eos% 0.1 % 0.0-7.0 Hct 27.3 % 42.0-52.0 Hgb 8.6 g/dL 14.0-17.0 Lym 45.22 K/uL 0.60-3.40 Lym% 94.7 % 10.0-50.0 MCH 36.0 pg 27.0-31.2 MCHC 31.5 g/dL 32.0-36.0 MCV 114.2 fL 80.0-97.0 [place]% 1.8 % 0.0-12.0 MPV 12.0 fL 7.4-10.0 Hope% 3.4 % 37.0-80.0 Plt 79 K/uL 150-400 RBC 2.39 M/uL 4.20-5.40 RDW 15.7 % 11.6-14.8 WBC 47.77 K/uL 5.00-10.00 [place] 1.61 K/uL 2.00-6.90 [place] 0.9 K/uL 0.0-0.9 Baso 0.0 K/uL 0.0-0.2 Capillary blood glucose measurement by glucometer (mass/volume) - 10/15/17 08: 05 Capillary blood glucose measurement by glucometer (mass/volume) 98 mg/dL 70-110 Methicillin resistant Staphylococcus aureus (MRSA) screening culture - 08:13 Methicillin resistant Staphylococcus aureus (MRSA) screening culture NEG NRG Hemoglobin A1C - 03/19/18 10:32 % A1C 7.30 % 5.40-6.60 AvGlu 182 mg/dL 70-110 CBC with Auto Diff - 06/29/18 10:38 Baso% 0.70 % 0.00-2.50 Eos 0.2 K/uL 0.0-0.7 Eos% 1.2 % 0.0-7.0 Hct 38.3 % 42.0-52.0 Hgb 12.9 g/dL 14.0-17.0 Lym 9.40 K/uL 0.60-3.40 Lym% 69.7 % 10.0-50.0 MCH 35.1 pg 27.0-31.2 MCHC 33.7 g/dL 32.0-36.0 MCV 104.4 fL 80.0-97.0 [place]% 5.6 % 0.0-12.0 MPV 9.5 fL 7.4-10.0 [place]% 22.8 % 37.0-80.0 Plt 115 K/uL 150-400 RBC 3.67 M/uL 4.20-5.40 RDW 14.6 % 11.6-14.8 WBC 13.48 K/uL 5.00-10.00 [place] 3.07 K/uL 2.00-6.90 [place] 0.8 K/uL 0.0-0.9 Baso 0.1 K/uL 0.0-0.2 Complete blood count (CBC) with automated white blood cell (WBC) differential - 10/27/18 09:00 Blood leukocytes automated count (number/volume) 14.5 10*3/uL 4.3-11.0 Blood erythrocytes automated count (number/volume) 3.42 10*6/uL 4.35-5.85 Venous blood hemoglobin measurement (mass/volume) 12.0 g/dL 13.3-17.7 Blood hematocrit (volume fraction) 35 % 40-54 Automated erythrocyte mean corpuscular volume 103 [foz_us] 80-99 Automated erythrocyte mean corpuscular hemoglobin (mass per erythrocyte) 35 pg 25-34 Automated erythrocyte mean corpuscular hemoglobin concentration measurement ( mass/volume) 34 g/dL 32-36 Automated erythrocyte distribution width ratio 15.6 % 10.0-14.5 Automated blood platelet count (count/volume) 141 10*3/uL 130-400 Automated blood platelet mean volume measurement 9.1 [foz_us] 7.4-10.4 Automated blood neutrophils/100 leukocytes 22 % 42-75 Automated blood lymphocytes/100 leukocytes 75 % 12-44 Blood monocytes/100 leukocytes 2 % 0-12 Automated blood eosinophils/100 leukocytes 1 % 0-10 Automated blood basophils/100 leukocytes 0 % 0-10 Blood neutrophils automated count (number/volume) 3.1 10*3 1.8-7.8 Blood lymphocytes automated count (number/volume) 10.9 10*3 1.0-4.0 Blood monocytes automated count (number/volume) 0.3 10*3 0.0-1.0 Automated eosinophil count 0.1 10*3/uL 0.0-0.3 Automated blood basophil count (count/volume) 0.0 10*3/uL 0.0-0.1 Comprehensive metabolic panel - 10/27/18 09:00 Serum or plasma sodium measurement (moles/volume) 141 mmol/L 135-145 Serum or plasma potassium measurement (moles/volume) 4.1 mmol/L 3.6-5.0 Serum or plasma chloride measurement (moles/volume) 106 mmol/L 98-107 Carbon dioxide 22 mmol/L 21-32 Serum or plasma anion gap determination (moles/volume) 13 mmol/L 5-14 Serum or plasma urea nitrogen measurement (mass/volume) 15 mg/dL 7-18 Serum or plasma creatinine measurement (mass/volume) 1.03 mg/dL 0.60-1.30 Serum or plasma urea nitrogen/creatinine mass ratio 15 NRG Serum or plasma creatinine measurement with calculation of estimated glomerular filtration rate > NRG Serum or plasma glucose measurement (mass/volume) 278 mg/dL 70-105 Serum or plasma calcium measurement (mass/volume) 9.4 mg/dL 8.5-10.1 Serum or plasma total bilirubin measurement (mass/volume) 0.6 mg/dL 0.1-1.0 Serum or plasma alkaline phosphatase measurement (enzymatic activity/volume) 85 U/L 40-136 Serum or plasma aspartate aminotransferase measurement (enzymatic activity/ volume) 22 U/L 5-34 Serum or plasma alanine aminotransferase measurement (enzymatic activity/volume ) 13 U/L 0-55 Serum or plasma protein measurement (mass/volume) 6.8 g/dL 6.4-8.2 Serum or plasma albumin measurement (mass/volume) 4.1 g/dL 3.2-4.5 CALCIUM CORRECTED 9.3 mg/dL 8.5-10.1 Encounters ACCT No. Visit Date/Time Discharge Status Pt. Type Provider Facility Loc./Unit Complaint [id number] 11/10/2018 09:49:00 11/10/2018 23:59:59 CLS Outpatient ADRIANA RIDDLE MD [facility] [id number] 08/13/2018 09:34:00 09/15/2018 14:37:00 DIS Outpatient ADRIANA RIDDLE MD [facility] ONC [id number] 05/13/2018 12:57:00 06/16/2018 00:01:00 DIS Outpatient ADRIANA RIDDLE MD [facility] ONC [id number] 02/18/2018 09:28:00 02/24/2018 00:01:00 DIS Outpatient ADRIANA RIDDLE MD [facility] ON[facility] [id number] 02/18/2018 11:45:00 02/18/2018 23:59:59 CLS Outpatient ADRIANA RIDDLE MD [facility] RAD R22.1 NECK NODULE [id number] 11/20/2017 10:11:00 11/25/2017 14:21:00 DIS Outpatient LIZ ALVES [facility] ONC [id number] 11/12/2017 10:45:00 11/19/2017 15:09:00 DIS Outpatient ADRIANA RIDDLE MD [facility] ONC BONE MARROW [id number] 11/05/2017 10:29:00 11/07/2017 16:33:00 DIS Outpatient LIZ ALVES [facility] ONC BONE MARROW [id number] 10/23/2017 13:09:00 10/27/2017 10:01:00 DIS Outpatient ADRIANA RIDDLE MD [facility] ONC BONE MARROW [id number] 10/15/2017 07:50:00 10/15/2017 12:30:00 DIS Outpatient NYA SINGH MD [facility] SDC SKIN LESION LEFT FAITH [id number] 10/10/2017 05:35:00 10/10/2017 12:00:00 DIS Outpatient NYA SINGH MD [facility] PREOP SKIN LESION LEFT FAITH [id number] 08/20/2017 13:12:00 08/23/2017 00:01:00 DIS Outpatient LIZ ALVES [facility] ONC BONE MARROW [id number] 07/21/2017 10:16:00 07/22/2017 00:01:00 DIS Outpatient LIZ ALVES [facility] ONC BONE MARROW [id number] 04/29/2017 09:24:00 04/29/2017 23:59:59 CLS Outpatient BLUE MALHOTRA [employer] TRIMMER [facility] RAD C91.10 [id number] 03/18/2017 14:38:00 04/16/2017 00:01:00 DIS Outpatient LIZ ALVES [facility] ONC BONE MARROW [id number] 04/11/2017 11:23:00 04/11/2017 23:59:59 CLS Outpatient KRISTINE ZEE MD [facility] RAD PROSTATE CA [id number] 11/14/2016 09:08:00 01/08/2017 00:01:00 DIS Outpatient LIZ ALVES [facility] ONC BONE MARROW [id number] 08/21/2016 09:03:00 09/02/2016 14:53:00 DIS Outpatient LIZ ALVES [facility] ONC BONE MARROW [id number] 07/10/2016 14:19:00 07/10/2016 23:59:59 CLS Outpatient BLUE MALHOTRA TIMBER TRIMMER [facility] ONC [id number] 05/30/2016 10:08:00 05/30/2016 23:59:59 CLS Outpatient BLUE MALHOTRA TIMBER TRIMMER [facility] ONC [id number] 02/28/2016 09:45:00 05/28/2016 00:01:00 DIS Outpatient LIZ ALVES [facility] ONC BONE MARROW [id number] 11/14/2015 12:23:00 11/14/2015 23:59:59 CLS Outpatient BLUE MALHOTRA S TIMBER TRIMMER [facility] ONC [id number] 10/03/2015 09:56:00 10/03/2015 23:59:59 CLS Outpatient LIZ ALVES [facility] ONC BONE MARROW [id number] 08/22/2015 13:09:00 08/22/2015 23:59:59 CLS Outpatient BLUE MALHOTRA S TIMBER TRIMMER [facility] ONC [id number] 05/08/2015 10:58:00 08/06/2015 00:01:00 DIS Outpatient LIZ ALVES [facility] ONC BONE MARROW [id number] 01/16/2015 10:28:00 04/16/2015 00:01:00 DIS Outpatient LIZ ALVES [facility] ONC BONE MARROW [id number] 09/14/2014 09:31:00 09/14/2014 23:59:59 CLS Outpatient BLUE MALHOTRA TIMBER TRIMMER [facility] ONC [id number] 06/16/2014 10:49:00 09/14/2014 00:01:00 DIS Outpatient LIZ ALVES [facility] ONC BONE MARROW [id number] 03/22/2014 07:17:00 03/22/2014 23:59:59 CLS Outpatient BLUE MALHOTRA TIMBER TRIMMER [facility] RAD HD/NECK CA [id number] 03/10/2014 12:54:00 03/10/2014 23:59:59 CLS Outpatient BLUE MALHOTRA S TIMBER TRIMMER [facility] ONC [id number] 12/08/2013 10:00:00 12/13/2013 00:01:00 DIS Outpatient LIZ ALVES [facility] ONC BONE MARROW [id number] 09/14/2013 13:54:00 09/14/2013 23:59:59 CLS Outpatient BLUE MALHOTAR S TIMBER TRIMMER [facility] ONC [id number] 06/07/2013 12:54:00 09/05/2013 00:01:00 DIS Outpatient LIZ ALVES Cody [facility] ONC BONE MARROW [id number] 06/01/2013 08:29:00 06/01/2013 23:59:59 CLS Outpatient BLUE MALHOTRA TIMBER TRIMMER [facility] RAD HEAD AND NECK CA [id number] 11/18/2018 08:15:00 ADRIANA Soliz MD [facility] RAD SCCA,ENCOUNTER FOR IMAGING STUDY TO RESTAGE [id number] 03/08/2013 13:39:00 Document Registration [id number] 03/01/2013 12:46:00 Document Registration [id number] 2018 10:30:00 2018 23:59:00 DIS Outpatient Yaritza Joshi [id number] 03/19/2018 10:26:00 03/19/2018 23:59:00 DIS Outpatient Yaritza Joshi [id number] 09/27/2017 10:00:00 10/01/2017 17:30:00 DIS Inpatient [facility] MED-SURG [id number] 09/21/2017 17:44:00 09/27/2017 10:00:00 DIS Inpatient [facility] MED-SURG [id number] 09/15/2017 08:39:00 09/15/2017 23:59:00 DIS Outpatient Blue Malhotra [id number] 09/09/2017 08:46:00 09/09/2017 23:59:00 DIS Outpatient YUDI VINSON [id number] 09/02/2017 09:02:00 09/02/2017 23:59:00 DIS Outpatient YUDI VINSON [id number] 08/26/2017 09:42:00 08/26/2017 23:59:00 DIS Outpatient YUDI VINSON [id number] 08/04/2017 09:52:00 08/04/2017 23:59:00 DIS Outpatient Blue Malhotra [id number] 07/14/2017 11:48:00 07/14/2017 23:59:00 DIS Outpatient Yaritza Joshi [id number] 07/07/2017 10:45:00 07/07/2017 23:59:00 DIS Outpatient LIZ ALVES [id number] 06/16/2017 10:00:00 06/16/2017 23:59:00 DIS Outpatient LIZ ALVES [id number] 06/09/2017 09:31:00 06/09/2017 23:59:00 DIS Outpatient Blue Malhotra [id number] 03/20/2017 10:18:00 03/20/2017 23:59:00 DIS Outpatient Blue Malhotra [id number] 03/07/2017 16:17:00 03/07/2017 23:59:00 DIS Outpatient Lorri Lara [id number] 12/25/2016 09:36:00 12/25/2016 23:59:00 DIS Outpatient Kristine Zee [id number] 12/14/2016 13:43:00 12/14/2016 16:33:00 DIS Outpatient Lucy Bj [facility] ER [id number] 11/29/2016 14:19:00 11/29/2016 23:59:00 DIS Outpatient Yaritza Joshi [id number] 11/25/2016 14:27:00 11/25/2016 17:58:00 DIS Outpatient WiliamfeliciaLex [facility] ER [id number] 11/03/2016 22:32:00 11/07/2016 09:45:00 DIS Inpatient Yaritza Joshi [facility] MED-SURG [id number] 11/02/2016 13:37:00 11/02/2016 15:48:00 DIS Outpatient Doe Nyasia [facility] ER [id number] 10/02/2017 15:40:00 Document Registration [id number] 09/22/2017 04:29:32 Document Registration [id number] 11/02/2016 14:37:45 Document Registration [id number] 08/22/2015 13:15:03 ACT Document Registration
[2018-11-19] MEDS ORDERED: LACTATED RINGERS 1,000 ML IV ONE (08:05)
[2018-11-19 08:37] VITALS: BP 115/77
[2018-11-19] MEDS ORDERED: LACTATED RINGERS 1,000 ML IV STA (08:46)
[2018-11-19] MEDS ORDERED: HURRICAINE EXT TUBE (BENZOCAINE) XX PRN (09:00)
[2018-11-19] MEDS ORDERED: proPOfol 200 MG/20 ML (DIPRIVAN) VIAL IV ONE (09:12)
[2018-11-19] MEDS ORDERED: KETAMINE HCL 100 MG/ML 5 ML VIAL ONE (09:14)
[2018-11-19] MEDS ORDERED: HURRICAINE EXT TUBE (BENZOCAINE) ONE (09:17)
--- NOTE | 2018-11-19 09:17 | Progress Note-Pre Operative ---
Pre-Operative Progress Note H&P Reviewed The H&P was reviewed, patient examined and no changes noted. Time Seen by Provider: 09:08 Date H&P Reviewed: Nov 19, 2018 Time H&P Reviewed: 09:09 Pre-Operative Diagnosis: Dysphagia ANY ARGUETA DO Nov 19, 2018 09:17
[2018-11-19 09:45] VITALS: BP 102/60
--- NOTE | 2018-11-19 10:03 | Progress Note-Post Operative ---
Post-Operative Progess Note Surgeon (s)/Buffet Attendant (s) Surgeon ANY ARGUETA DO Buffet Attendant: none Pre-Operative Diagnosis Dysphagia Post-Operative Diagnosis Same plus Gastric ulcers GE jxn mass Hiatal Hernia Procedure & Operative Findings Date of Procedure 11/19/18 Procedure Performed/Findings EGD with biopsy Anesthesia Type IV sedation by CHEF Estimated Blood Loss Estimated blood loss (mL): scant Specimens/Packing Specimens Removed Antral Ulcer bx Bx of GE jxn mass ANY ARGUETA DO Nov 19, 2018 10:03
[2018-11-19] MEDS ORDERED: OMEP20TA33 PO (10:04)
--- NOTE | 2018-11-19 10:05 | Endoscopy Discharge Instruct ---
Endo Procedure/Findings Findings 1.: Gastric Ulcer 2.: Hiatal Hernia Discharge Instructions - Activity: You might feel a little sleepy until tomorrow. This is due to the medicine you received to relax you. Until tomorrow, you should: NOT drive a car, operate machinery or power tools. NOT drink any alcoholic beverages. NOT make any important decisions or sign importortant papers. Do not return to work until tomorrow, unless otherwise instructed. Resume previous activities tomorrow. Diet: Start by taking liquids. If you tolerate liquids, advance to solid food. make an appointment for one week Notify Physician - If you experience excessive bleeding, unusual abdominal pain, fever, or chest pain, contact your doctor immediately. Follow-Up: - I have received and understand the above instructions and will call my doctor if I have any further questions. Patient Signature Date Nurse Signature Other (Relationship) ANY ARGUETA DO Nov 19, 2018 10:05
[2018-11-19 10:20] VITALS: BP 103/58
[2018-11-19 10:25] VITALS: BP 103/58
--- NOTE | 2018-11-19 14:38 | Anesthesia-General Post-Op ---
MAC Patient Condition Mental Status/LOC: Same as Preop Cardiovascular: Satisfactory Nausea/Vomiting: Absent Respiratory: Satisfactory Pain: Controlled Complications: Absent Post Op Complications Complications None Follow Up Care/Instructions Patient Instructions None needed. Anesthesiology Discharge Order Discharge Order Patient is doing well, no complaints, stable vital signs, no apparent adverse anesthesia problems. No complications reported per nursing. LUCY GONZALES CRNA Nov 19, 2018 14:38
--- NOTE | 2018-11-20 23:28 | OPERATIVE REPORT ---
DATE OF SERVICE: 11/19/2018 PREOPERATIVE DIAGNOSES: 1. Dysphagia. 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 POSTOPERATIVE DIAGNOSES: 1. Dysphagia. 2. Gastric ulcer. 3. Gastritis. 4. 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 PROCEDURE: EGD with biopsy. SURGEON: Moustapha Lucas DO COST ESTIMATING CLERK: None. ANESTHESIA: IV sedation by the FUEL CELL BINDER. SPECIMEN: One biopsy from the antrum, one biopsy from the duodenum and biopsy of the gastric mass at the GE junction. BLOOD LOSS: Scant. FLUIDS: Per anesthesia. POSTOPERATIVE CONDITION: Stable. INDICATION FOR PROCEDURE: The patient is an 83-year-old male who has been having some difficulty swallowing and he unfortunately has a newly diagnosed cancer that is on the face and the cheek. He has a history of supraglottic cancer, needed EGD to make sure there is nothing block in the throat. FINDINGS: The patient had pretty severe ulcers in the antrum as well as in the duodenum and then right at the GE junction had looked like a mass. Biopsy was done of this. PROCEDURE NOTE: After informed consent was obtained, the patient was brought to the endoscopy suite, placed in the bed in the left lateral decubitus position. He was administered IV sedation by the FUEL CELL BINDER who then monitored his vitals the entire time, heart rate, blood pressure and pulse ox and the scope was inserted down the mouth past the oropharynx into the esophagus and down into the stomach. Immediately upon entering the stomach, the antrum saw very severe gastritis and ulcers. Pictures were taken and then pushed into the duodenum. Duodenum also appeared to have ulcerations. Elected to do a biopsy here in the duodenum and then pulled back into the antrum, did another biopsy and then retroflexed. The ulcerations were only in the first portion of duodenum. Second and third portion looked okay. Retroflexed the scope to look up at the GE junction and the patient appeared to have a small hiatal hernia as well looked like he had a small mass right at the GE junction. Elected to do a biopsy of this as well and then pulled the scope up into the esophagus. The GE junction otherwise looked okay. The esophagus looked okay and pulled the scope up the esophagus and out the mouth. The patient tolerated the procedure and was recovered in endoscopy suite. Job ID: [id number] DocumentID: [id number] Dictated Date: 11/20/2018 11:50:03 Golf Coach Date: 11/20/2018 23:27:06 Dictated By: MOUSTAPHA LUCAS DO
== END 2018-11-19 10:25 | disposition home or self-care (01) ==
LOC: ENDO 07:36
PROVIDERS: ATTEND Surgery
DX: K25.9 Gastric ulcer, unspecified as acute or chronic, without hemorrhage or perforation (principal); K31.9 Disease of stomach and duodenum, unspecified; K21.9 Gastro-esophageal reflux disease without esophagitis; K44.9 Diaphragmatic hernia without obstruction or gangrene; I25.10 Atherosclerotic heart disease of native coronary artery without angina pectoris; I25.5 Ischemic cardiomyopathy; I12.9 Hypertensive chronic kidney disease with stage 1 through stage 4 chronic kidney disease, or unspecified chronic kidney disease; N18.3 Chronic kidney disease, stage 3 (moderate); E11.22 Type 2 diabetes mellitus with diabetic chronic kidney disease; G47.33 Obstructive sleep apnea (adult) (pediatric); C91.10 Chronic lymphocytic leukemia of B-cell type not having achieved remission; C44.329 Squamous cell carcinoma of skin of other parts of face; E78.00 Pure hypercholesterolemia, unspecified; Z87.891 Personal history of nicotine dependence; Z95.1 Presence of aortocoronary bypass graft; Z95.810 Presence of automatic (implantable) cardiac defibrillator; Z85.21 Personal history of malignant neoplasm of larynx; Z79.82 Long term (current) use of aspirin; Z79.899 Other long term (current) drug therapy
CPT/HCPCS: 82962; 88305

== ENCOUNTER 2018-12-25 14:26 | Outpatient (RCR) | payer MEDICARE, OTHER ==
[2018-12-17 11:45] LABS: BASOPHILS % (AUTO) 1 % (0-10); EOSINOPHILS # (AUTO) 0.1 10^3/uL (0.0-0.3); EOSINOPHILS % (AUTO) 2 % (0-10); HEMATOCRIT 35 % (40-54); HEMOGLOBIN 11.7 G/DL (13.3-17.7); LYMPHOCYTES # (AUTO) 1.5 X 10^3 (1.0-4.0); LYMPHOCYTES % (AUTO) 27 % (12-44); MEAN CORPUSCULAR HEMOGLOBIN 35 PG (25-34); MEAN CORPUSCULAR HGB CONC 34 G/DL (32-36); MEAN CORPUSCULAR VOLUME 102 FL (80-99); MEAN PLATELET VOLUME 9.5 FL (7.4-10.4); MONOCYTES # (AUTO) 0.4 X 10^3 (0.0-1.0); MONOCYTES % (AUTO) 8 % (0-12); NEUTROPHILS # (AUTO) 3.5 X 10^3 (1.8-7.8); NEUTROPHILS % (AUTO) 63 % (42-75); PLATELET COUNT 187 10^3/uL (130-400); RED CELL DISTRIBUTION WIDTH 16.3 % (10.0-14.5); WHITE BLOOD COUNT 5.6 10^3/uL (4.3-11.0)
[2018-12-17 12:03] LABS: ALANINE AMINOTRANSFERASE 9 U/L (0-55); ALBUMIN 3.7 GM/DL (3.2-4.5); ALKALINE PHOSPHATASE 74 U/L (40-136); BILIRUBIN,TOTAL 0.5 MG/DL (0.1-1.0); BUN/CREATININE RATIO 23; CALCIUM 9.3 MG/DL (8.5-10.1); CARBON DIOXIDE 23 MMOL/L (21-32); CHLORIDE 105 MMOL/L (98-107); CREATININE SERUM 0.84 MG/DL (0.60-1.30); GFR ESTIMATED > 60; GLUCOSE 217 MG/DL (70-105); POTASSIUM 4.4 MMOL/L (3.6-5.0); SODIUM 138 MMOL/L (135-145); TOTAL PROTEIN 6.2 GM/DL (6.4-8.2)
[~2018-12-25 14:26] MED LIST changes: +CEMIPLIMAB RWLC IV SCH; +NS IV 1000 ML (CANCER CTR) IV SCH; +NS IV SCH; +OMEP20TA33 PO
== END 2019-03-17 | disposition home or self-care (01) ==
LOC: ONC 14:26
PROVIDERS: ATTEND Internal Medicine Hematology & Oncology
DX: Z51.11 Encounter for antineoplastic chemotherapy (principal); C44.310 Basal cell carcinoma of skin of unspecified parts of face; C91.10 Chronic lymphocytic leukemia of B-cell type not having achieved remission; Z85.21 Personal history of malignant neoplasm of larynx; N18.3 Chronic kidney disease, stage 3 (moderate); I12.9 Hypertensive chronic kidney disease with stage 1 through stage 4 chronic kidney disease, or unspecified chronic kidney disease; E11.22 Type 2 diabetes mellitus with diabetic chronic kidney disease; I25.10 Atherosclerotic heart disease of native coronary artery without angina pectoris; E78.00 Pure hypercholesterolemia, unspecified; Z92.3 Personal history of irradiation; Z79.82 Long term (current) use of aspirin; Z79.899 Other long term (current) drug therapy
CPT/HCPCS: 36415; 80053; 84443; 85025; 96360; 96413